=== PATIENT | female | born 1930 | race Caucasian/White ===

== ENCOUNTER 2016-03-31 12:27 | Observation (INO) | payer OTHER ==
[~2016-03-31] VITALS: Ht 157.5 cm; Wt 63.0 kg
[~2016-03-31 12:27] MED LIST: CLOP75 PO; DIAZ5TAB PO; DOCU1CAP39 PO; LEVO75TA3 PO; LYRI150C PO; MAPA325T6 PO; METF500 PO; METO10TA PO; MIRA33502 PO; NEXI40CA PO; POLYSOL14 EACH EYE; ST JTAB PO
[2016-03-31 12:29] VITALS: BP 191/81; PULSE 71; RESP 12; TEMP 98.5; O2SAT 99
--- NOTE | 2016-03-31 16:31 | PD ---
HPI Chief Complaint: Abdominal Pain Time Seen by Provider: 16:27 Travel History International Travel<30 days: No Contact w/Intl Traveler<30days: No Traveled to known affect area: No History of Present Illness HPI 86-year-old female presents to the emergency department for evaluation of abdominal pain. Patient states this has been ongoing for 1 week. She states she went to her primary care physician who referred her to the emergency department. Patient states that she has a history of this abdominal pain that comes and goes for several years. She currently sees Dr. Siegel. Patient has had multiple EGDs and colonoscopies. Patient reports history of hiatal hernia, spastic colon, fibromyalgia, rheumatoid arthritis, GERD Tunnel syndrome, hypothyroidism, diabetes, bronchitis, hemorrhoids. Patient denies any fevers or chills. No chest pain or shortness of breath. She denies any nausea or vomiting. No constipation or diarrhea. Patient reports she last had a bowel movement this morning which was normal for her. No blood in her stool. PFSH Past Medical History Hx Anticoagulant Therapy: Yes Arthritis: Yes (RHEUMATOID) Asthma: No Autoimmune Disease: No Blood Disorders: No Anxiety: Yes Depression: No Heart Rhythm Problems: No Cancer: No Cardiac Catheterization: Yes (2003 ) Cardiovascular Problems: Yes High Cholesterol: Yes Chemotherapy: No Chest Pain: Yes Congestive Heart Failure: No COPD: No Diabetes: Yes Diminished Hearing: No Endocrine: No Fibromyalgia: Yes Gastrointestinal Disorders: No GERD: Yes Glaucoma: No Headaches: No Hepatitis: No Hiatal Hernia: Yes Hypertension: No Immune Disorder: No Kidney Stones: No Musculoskeletal: Yes (FIBROMYALGIA; RHEUMATOID ARTHRITIS; CARPAL TUNNEL SYNDROME) Neurologic: No Reproductive: No Respiratory: Yes (BRONCHITIS) Myocardial Infarction: No Radiation Therapy: No Renal Failure: No Seizures: No Sleep Apnea: No Thyroid Disease: Yes Ulcer: No ?: Not : 7 Para: 7 Tubal Ligation: Yes (1962) Past Surgical History Abdominal Surgery: Yes (LAP YVETTE) AICD: No Cardiac Surgery: No Section: Yes (1962) Cholecystectomy: Yes Coronary Stent: Yes (2003 X 1) Ear Surgery: No Endocrine Surgery: No Eye Surgery: No Genitourinary Surgery: No Gynecologic Surgery: Yes Hysterectomy: Yes Neurologic Surgery: Yes (CERVICAL LAMI C4-C7 /FUSION) Oral Surgery: No Pacemaker: No Thoracic Surgery: No Other Surgery: Yes (SPINAL CORD STIMULATOR INSERTION/REMOVAL) Social History Alcohol Use: No Tobacco Use: No Substance Use: No Allergies-Medications (Allergen,Severity, Reaction): Coded Allergies: Cipro (Verified Allergy, Unknown, 03/31/16) Dilaudid (Verified Allergy, Unknown, 03/31/16) Flagyl (Verified Allergy, Unknown, 03/31/16) Levaquin (Verified Allergy, Unknown, 03/31/16) Reported Meds & Prescriptions Reported Meds & Active Scripts Active Reported Lyrica (Pregabalin) 150 Mg Cap 150 Mg PO BID Plavix (Clopidogrel Bisulfate) 75 Mg Tab 75 Mg PO DAILY Reglan (Metoclopramide HCl) 10 Mg Tab 10 Mg PO QID Colace (Docusate Sodium) 100 Mg Cap 100 Mg PO BID Aspir-81 (Aspirin) 81 Mg Tabdr Miralax (Polyethylene Glycol 3350) 1 Pow Pow Metformin (Metformin HCl) 500 Mg Tab 500 Mg PO BIDPC With meals Diazepam 5 Mg Tab 5 Mg PO BID PRN Nexium (Esomeprazole DR) 40 Mg Capdr 40 Mg PO DAILY Levoxyl (Levothyroxine Sodium) 75 Mcg Tab 75 Mcg PO DAILY Review of Systems Except as stated in HPI: all other systems reviewed are Neg Physical Exam Narrative GENERAL: Well-developed well-nourished elderly female patient, afebrile. SKIN: Warm and dry. HEAD: Normocephalic. Atraumatic. EYES: No scleral icterus. No injection or drainage. NECK: Supple, trachea midline. No JVD or lymphadenopathy. CARDIOVASCULAR: Regular rate and rhythm without murmurs, gallops, or rubs. RESPIRATORY: Breath sounds equal bilaterally. No accessory muscle use. Lungs sounds clear to auscultation. GASTROINTESTINAL: Abdomen soft, and nondistended. Patient has generalized tenderness to palpation. MUSCULOSKELETAL: No cyanosis, or edema. BACK: Nontender without obvious deformity. No CVA tenderness. Data Data Last Documented VS Vital Signs Date Time Temp Pulse Resp B/P Pulse Ox O2 Delivery O2 Flow Rate FiO2 03/31/16 12:29 98.5 71 12 191/81 99 Room Air Orders Complete Blood Count With Diff (03/31/16 16:26) Comprehensive Metabolic Panel (03/31/16 16:26) Lipase (03/31/16 16:26) Urinalysis - C+S If Indicated (03/31/16 16:26) Electrocardiogram (03/31/16 16:26) Urine Culture (03/31/16 17:05) Labs Laboratory Tests Test 03/31/16 03/31/16 16:37 17:05 White Blood Count 7.7 TH/MM3 Red Blood Count 4.78 MIL/MM3 Hemoglobin 13.8 GM/DL Hematocrit 39.5 % Mean Corpuscular Volume 82.5 FL Mean Corpuscular Hemoglobin 28.9 PG Mean Corpuscular Hemoglobin 35.1 % Concent Red Cell Distribution Width 14.6 % Platelet Count 338 TH/MM3 Mean Platelet Volume 8.0 FL Neutrophils (%) (Auto) 52.3 % Lymphocytes (%) (Auto) 35.9 % Monocytes (%) (Auto) 9.4 % Eosinophils (%) (Auto) 1.1 % Basophils (%) (Auto) 1.3 % Neutrophils # (Auto) 4.0 TH/MM3 Lymphocytes # (Auto) 2.8 TH/MM3 Monocytes # (Auto) 0.7 TH/MM3 Eosinophils # (Auto) 0.1 TH/MM3 Basophils # (Auto) 0.1 TH/MM3 CBC Comment DIFF FINAL Differential Comment Sodium Level 132 MEQ/L Potassium Level 3.3 MEQ/L Chloride Level 99 MEQ/L Carbon Dioxide Level 24.7 MEQ/L Anion Gap 8 MEQ/L Blood Urea Nitrogen 8 MG/DL Creatinine 0.84 MG/DL Estimat Glomerular Filtration 64 ML/MIN Rate Random Glucose 91 MG/DL Calcium Level 8.9 MG/DL Total Bilirubin 0.3 MG/DL Aspartate Amino Transf 15 U/L (AST/SGOT) Alanine Aminotransferase 14 U/L (ALT/SGPT) Alkaline Phosphatase 62 U/L Total Protein 7.9 GM/DL Albumin 3.9 GM/DL Lipase 91 U/L Urine Color YELLOW Urine Turbidity CLEAR Urine pH 8.5 Urine Specific [place] 1.020 Urine Protein 30 mg/dL Urine Glucose (UA) NEG mg/dL Urine Ketones 10 mg/dL Urine Occult Blood NEG Urine Nitrite NEG Urine Bilirubin NEG Urine Urobilinogen LESS THAN 2.0 MG/DL Urine Leukocyte Esterase MOD Urine RBC 7 /hpf Urine WBC 21 /hpf Urine WBC Clumps RARE Urine Squamous Epithelial 3 /hpf Cells Urine Bacteria FEW /hpf Urine Mucus FEW /lpf Microscopic Urinalysis Comment CULTURE INDICATED MDM Medical Decision Making Medical Screen Exam Complete: Yes Emergency Medical Condition: Yes Medical Record Reviewed: Yes Differential Diagnosis Chronic abdominal pain versus diverticulitis versus urinary tract infection versus pancreatitis versus bowel obstruction Narrative Course 86-year-old elderly female presents to the emergency department for evaluation of generalized abdominal pain for 1 week. Patient reports history of similar pain in the past. She has had multiple workups for this outpatient by her certified green building engineer, Dr. Siegel. CBC, CMP, lipase, EKG are ordered and pending. Workup is initiated in triage. Patient will be moved to medical pod for further evaluation and disposition. Pinky Sorensen Mar 31, 2016 16:31
[2016-03-31] MEDS ORDERED: METF500T PO (16:37)
[2016-03-31] MEDS ORDERED: LEVO75TA43 PO (16:37)
[2016-03-31] MEDS ORDERED: NEXI40CA PO (16:37)
[2016-03-31] MEDS ORDERED: DIAZ5TAB PO (16:37)
[2016-03-31] MEDS ORDERED: ASPI81TA81 (16:37)
[2016-03-31] MEDS ORDERED: MIRA3350 (16:37)
[2016-03-31] MEDS ORDERED: REGL10TA5 PO (16:39)
[2016-03-31] MEDS ORDERED: COLA100C3 PO (16:39)
[2016-03-31] MEDS ORDERED: LYRI150C PO (16:39)
[2016-03-31] MEDS ORDERED: PLAV75TA29 PO (16:39)
[2016-03-31 16:54] LABS: BASOPHIL # 0.1 TH/MM3 (0-0.2); BASOPHIL % 1.3 % (0.0-2.0); EOSINOPHIL # 0.1 TH/MM3 (0-0.4); EOSINOPHIL % 1.1 % (0.0-4.0); HEMATOCRIT 39.5 % (35.0-46.0); HEMO FLAGS DIFF FINAL; LYMPH % 35.9 % (9.0-44.0); LYMPHOCYTE # 2.8 TH/MM3 (1.0-4.8); MEAN CELL VOLUME 82.5 FL (80.0-100.0); MEAN CORPUSCULAR HEMOGLOBIN 28.9 PG (27.0-34.0); MEAN CORPUSCULAR HGB CONC 35.1 % (32.0-36.0); MONO % 9.4 % (0.0-8.0); NEUT % 52.3 % (16.0-70.0); PLATELET COUNT 338 TH/MM3 (150-450); RED BLOOD COUNT 4.78 MIL/MM3 (4.00-5.30); RED CELL DISTRIBUTION WIDTH 14.6 % (11.6-17.2); WHITE BLOOD COUNT 7.7 TH/MM3 (4.0-11.0)
[2016-03-31 17:08] LABS: ANION GAP 8 MEQ/L (5-15); AST (GOT) 15 U/L (15-37); BICARBONATE 24.7 MEQ/L (21.0-32.0); BLOOD UREA NITROGEN 8 MG/DL (7-18); CHLORIDE 99 MEQ/L (98-107); GLOMERULAR FILTRATION RATE 64 ML/MIN (>89); POTASSIUM 3.3 MEQ/L (3.5-5.1); SODIUM (NA) 132 MEQ/L (136-145)
[2016-03-31 17:11] LABS: ALKALINE PHOSPHATASE 62 U/L (45-117); ALT (GPT) 14 U/L (10-53); TOTAL BILIRUBIN ADULT 0.3 MG/DL (0.2-1.0)
[2016-03-31 17:35] LABS: BACTERIA, URINE FEW /hpf; BLOOD, URINE NEG (NEG); GLUCOSE,URINE NEG (NEG); KETONE, URINE 10 mg/dL (NEG); MUCUS URINE FEW /lpf (OCC); NITRITE,URINE NEG (NEG); PH, URINE 8.5 (5.0-8.5); SQUAMOUS EPITHELIAL CELL URINE 3 /hpf (0-5); URINE COLOR YELLOW (YELLW/STRAW)
[2016-03-31 17:38] LABS: COMMENT (UR) CULTURE INDICATED; CULTURE IF INDICATED CULTURE INDICATED
[2016-03-31] MEDS ORDERED: PANTOPRAZOLE SODIUM 40 MG VIAL IV PUSH ONE (18:00)
[2016-03-31] MEDS ORDERED: MORPHINE SULFATE 4 MG/ML INJ IV PUSH ONE ×2 (18:00→20:00)
[2016-03-31] MEDS ORDERED: ONDANSETRON HCL 4 MG/2 ML VIAL IV PUSH ONE (18:00)
[2016-03-31] MEDS ORDERED: SODIUM CHLORID 0.9% 500 ML INJ 500 ML IV ONE (18:00)
--- NOTE | 2016-03-31 19:02 | PD ---
Physical Exam Narrative Patient originally seen in triage by [facility] where workup was started. Patient is a 86-year-old female comes in complaining of diffuse abdominal pain. She has had issues with abdominal pain in the past, she has had several EGDs and colonoscopies as well as CT scans and other gastroenterologic testing. Her pain started again today, and she reports it as severe. She has not had any vomiting, but she has not been eating very much due to lack of appetite. She reports having a small bowel movement earlier today. She has not had any fever or chills. She localizes the pain to her lower abdomen. Data Data Last Documented VS Vital Signs Date Time Temp Pulse Resp B/P Pulse Ox O2 Delivery O2 Flow Rate FiO2 03/31/16 12:29 98.5 71 12 191/81 99 Room Air Orders Complete Blood Count With Diff (03/31/16 16:26) Comprehensive Metabolic Panel (03/31/16 16:26) Lipase (03/31/16 16:26) Urinalysis - C+S If Indicated (03/31/16 16:26) Electrocardiogram (03/31/16 16:26) Urine Culture (03/31/16 17:05) Morphine Inj (Morphine Inj) (03/31/16 18:00) Ondansetron Inj (Zofran Inj) (03/31/16 18:00) Pantoprazole Inj (Protonix Inj) (03/31/16 18:00) Ct Abd/Pel W Iv Contrast(Rout) (03/31/16 ) Sodium Chlorid 0.9% 500 Ml Inj (Ns 500 M (03/31/16 18:00) Labs Laboratory Tests Test 03/31/16 03/31/16 16:37 17:05 White Blood Count 7.7 TH/MM3 Red Blood Count 4.78 MIL/MM3 Hemoglobin 13.8 GM/DL Hematocrit 39.5 % Mean Corpuscular Volume 82.5 FL Mean Corpuscular Hemoglobin 28.9 PG Mean Corpuscular Hemoglobin 35.1 % Concent Red Cell Distribution Width 14.6 % Platelet Count 338 TH/MM3 Mean Platelet Volume 8.0 FL Neutrophils (%) (Auto) 52.3 % Lymphocytes (%) (Auto) 35.9 % Monocytes (%) (Auto) 9.4 % Eosinophils (%) (Auto) 1.1 % Basophils (%) (Auto) 1.3 % Neutrophils # (Auto) 4.0 TH/MM3 Lymphocytes # (Auto) 2.8 TH/MM3 Monocytes # (Auto) 0.7 TH/MM3 Eosinophils # (Auto) 0.1 TH/MM3 Basophils # (Auto) 0.1 TH/MM3 CBC Comment DIFF FINAL Differential Comment Sodium Level 132 MEQ/L Potassium Level 3.3 MEQ/L Chloride Level 99 MEQ/L Carbon Dioxide Level 24.7 MEQ/L Anion Gap 8 MEQ/L Blood Urea Nitrogen 8 MG/DL Creatinine 0.84 MG/DL Estimat Glomerular Filtration 64 ML/MIN Rate Random Glucose 91 MG/DL Calcium Level 8.9 MG/DL Total Bilirubin 0.3 MG/DL Aspartate Amino Transf 15 U/L (AST/SGOT) Alanine Aminotransferase 14 U/L (ALT/SGPT) Alkaline Phosphatase 62 U/L Total Protein 7.9 GM/DL Albumin 3.9 GM/DL Lipase 91 U/L Urine Color YELLOW Urine Turbidity CLEAR Urine pH 8.5 Urine Specific [place] 1.020 Urine Protein 30 mg/dL Urine Glucose (UA) NEG mg/dL Urine Ketones 10 mg/dL Urine Occult Blood NEG Urine Nitrite NEG Urine Bilirubin NEG Urine Urobilinogen LESS THAN 2.0 MG/DL Urine Leukocyte Esterase MOD Urine RBC 7 /hpf Urine WBC 21 /hpf Urine WBC Clumps RARE Urine Squamous Epithelial 3 /hpf Cells Urine Bacteria FEW /hpf Urine Mucus FEW /lpf Microscopic Urinalysis Comment CULTURE INDICATED MDM Supervised Visit with ANGELIKA: Yes Narrative Course Patient is an 86-year-old female comes in complaining of severe abdominal pain. Exam shows diffuse tenderness to palpation, slight distention of her abdomen. IV established, labs sent. Urinalysis is positive for infection. Given a dose of Rocephin. Given IV fluids, Zofran, morphine, Protonix. CT of the abdomen and pelvis ordered to evaluate for further pathology. Patient signed out to Dr. Delacruz to follow-up CAT scan and disposition appropriately. Condition: Stable Alanis Trivedi MD Mar 31, 2016 19:02
[2016-03-31] MEDS ORDERED: IOHEXOL 350 MG/ML 10 ML VIAL (for RAD DIAG) IV ONE (19:20)
[2016-03-31] MEDS ORDERED: cefTRIAXone INJ 1,000 MG in SODIUM CHLORIDE 0.9% INJ 100 ML IV ONE (19:30)
--- NOTE | 2016-03-31 19:44 | RADRPT ---
EXAM DATE/TIME: 03/31/2016 18:40 [place] COMPARISON: No previous studies available for comparison. INDICATIONS : Abdomen pain for one week. IV CONTRAST: 75 cc Omnipaque 350 (iohexol) IV ORAL CONTRAST: No oral contrast ingested. RADIATION DOSE: 9.96 CTDIvol (mGy) MEDICAL HISTORY : Cardiovascular disease. Cerebrovascular disease. Hernia, hiatal.diabetes,spastic bowel SURGICAL HISTORY : Cholecystectomy. Hysterectomy. ENCOUNTER: Initial ACUITY: 1 week PAIN SCALE: 10/10 LOCATION: Abdomen TECHNIQUE: Volumetric scanning of the abdomen and pelvis was performed. Using automated exposure control and ad justment of the mA and/or kV according to patient size, radiation dose was kept as low as reasonably achievable to obtain optimal diagnostic quality images. FINDINGS: There is dependent atelectasis in the lungs. Mild fatty liver. No acute findings in the spleen, adren als, kidneys. Mild pancreatic ductal dilatation. Common bile duct is also dilated to about 14 mm, sta tus post cholecystectomy. There is colonic diverticulosis, especially sigmoid without diverticulitis. Sclerotic changes at the femoral heads suggest prior avascular necrosis. Vascular stent present in the proximal celiac artery. No aneurysm. CONCLUSION: 1. No acute findings. Colonic diverticulosis. 2. Cholecystectomy with biliary ductal dilatation to 14 mm. 3. There is a celiac artery stent. Da Florence MD on March 31, 2016 at 19:38 Board Certified Radiologist. This report was verified electronically.
[2016-03-31 21:28] VITALS: BP 171/80; PULSE 67; RESP 18; O2SAT 98
--- NOTE | 2016-03-31 22:30 | PD ---
Data Data Last Documented VS Vital Signs Date Time Temp Pulse Resp B/P Pulse Ox O2 Delivery O2 Flow Rate FiO2 03/31/16 12:29 98.5 71 12 191/81 99 Room Air Orders Complete Blood Count With Diff (03/31/16 16:26) Comprehensive Metabolic Panel (03/31/16 16:26) Lipase (03/31/16 16:26) Urinalysis - C+S If Indicated (03/31/16 16:26) Electrocardiogram (03/31/16 16:26) Urine Culture (03/31/16 17:05) Morphine Inj (Morphine Inj) (03/31/16 18:00) Ondansetron Inj (Zofran Inj) (03/31/16 18:00) Pantoprazole Inj (Protonix Inj) (03/31/16 18:00) Ct Abd/Pel W Iv Contrast(Rout) (03/31/16 ) Sodium Chlorid 0.9% 500 Ml Inj (Ns 500 M (03/31/16 18:00) Ceftriaxone Inj (Rocephin Inj) (03/31/16 19:30) Iohexol 350 Inj (Omnipaque 350 Inj) (03/31/16 19:20) Morphine Inj (Morphine Inj) (03/31/16 20:00) Lactic Acid (03/31/16 20:08) Admit Order (Ed Use Only) (03/31/16 20:40) Labs Laboratory Tests Test 03/31/16 03/31/16 16:37 17:05 White Blood Count 7.7 TH/MM3 Red Blood Count 4.78 MIL/MM3 Hemoglobin 13.8 GM/DL Hematocrit 39.5 % Mean Corpuscular Volume 82.5 FL Mean Corpuscular Hemoglobin 28.9 PG Mean Corpuscular Hemoglobin 35.1 % Concent Red Cell Distribution Width 14.6 % Platelet Count 338 TH/MM3 Mean Platelet Volume 8.0 FL Neutrophils (%) (Auto) 52.3 % Lymphocytes (%) (Auto) 35.9 % Monocytes (%) (Auto) 9.4 % Eosinophils (%) (Auto) 1.1 % Basophils (%) (Auto) 1.3 % Neutrophils # (Auto) 4.0 TH/MM3 Lymphocytes # (Auto) 2.8 TH/MM3 Monocytes # (Auto) 0.7 TH/MM3 Eosinophils # (Auto) 0.1 TH/MM3 Basophils # (Auto) 0.1 TH/MM3 CBC Comment DIFF FINAL Differential Comment Sodium Level 132 MEQ/L Potassium Level 3.3 MEQ/L Chloride Level 99 MEQ/L Carbon Dioxide Level 24.7 MEQ/L Anion Gap 8 MEQ/L Blood Urea Nitrogen 8 MG/DL Creatinine 0.84 MG/DL Estimat Glomerular Filtration 64 ML/MIN Rate Random Glucose 91 MG/DL Calcium Level 8.9 MG/DL Total Bilirubin 0.3 MG/DL Aspartate Amino Transf 15 U/L (AST/SGOT) Alanine Aminotransferase 14 U/L (ALT/SGPT) Alkaline Phosphatase 62 U/L Total Protein 7.9 GM/DL Albumin 3.9 GM/DL Lipase 91 U/L Urine Color YELLOW Urine Turbidity CLEAR Urine pH 8.5 Urine Specific [place] 1.020 Urine Protein 30 mg/dL Urine Glucose (UA) NEG mg/dL Urine Ketones 10 mg/dL Urine Occult Blood NEG Urine Nitrite NEG Urine Bilirubin NEG Urine Urobilinogen LESS THAN 2.0 MG/DL Urine Leukocyte Esterase MOD Urine RBC 7 /hpf Urine WBC 21 /hpf Urine WBC Clumps RARE Urine Squamous Epithelial 3 /hpf Cells Urine Bacteria FEW /hpf Urine Mucus FEW /lpf Microscopic Urinalysis Comment CULTURE INDICATED MDM Supervised Visit with ANGELIKA: No Narrative Course This is an 86-year-old female who has a history of cyclic chronic epigastric abdominal pain who presents to the emergency department with worsening symptoms over the past week. She was signed out to me by Dr. Trivedi. She had a CT abdomen and pelvis which was reassuring. She does have a urinary tract infection. I did add a lactic acid in the setting of the patient's history of celiac artery stent, although it seems in the past this has not been thought to be the cause of this patient's pain. Patient will be placed in observation for pain control and antibiotic therapy. Diagnosis Primary Impression: Urinary tract infection Qualified Code: N30.01 - Acute cystitis with hematuria Admitting Information Admitting Physician Requests: Observation Condition: Stable Juhi Delacruz MD Mar 31, 2016 22:30
[2016-03-31 23:41] VITALS: BP 161/78; PULSE 78; RESP 18; O2SAT 100
--- NOTE | 2016-03-31 23:56 | HHI.HP ---
[facility] Non-Staff Admission Diagnosis urinary tract infection, abdominal pain Diagnoses: Chief Complaint: Abdominal pain Travel History International Travel<30 Days: No Contact w/Intl Traveler <30 Da: No Traveled to Known Affected Are: No History of Present Illness This is an 86-year-old female with past medical history significant for cyclic chronic abdominal pain as well as mesenteric artery stent, diabetes mellitus, as stated above below presents complaining of abdominal pain localized in the gastric region, nonradiating. The patient has some difficulty communicating, however as per ED physician records and verbal signout to me, the patient has had extensive GI workup including multiple EGDs and colonoscopies which has been nondiagnostic of any abnormality. Patient also had a mesenteric artery stent for suspected bowel ischemia, after which the patient continued to have symptoms and underwent a cholecystectomy. Apparently the patient had been asymptomatic for a few months and just started complaining of abdominal pain. Patient denies nausea vomiting, diarrhea, constipation. Denies melena or bright blood per rectum. Conductive records the patient has been evaluated by either muscular surgery, Dr. rachel and 12/09/15 for the possibility of mesenteric ischemia, however this was ruled out. Patient also denies fevers or chills, cough, chest pain and shortness of breath. Review of Systems Other For history of present illness, other systems reviewed by me and negative. Past Family Social History Past Medical History Anxiety Hypothyroidism GERD/IBS Rheumatoid arthritis Fibromyalgia Chronic dysarthria, denies CVA Hyperlipidemia Diabetes mellitus Peripheral neuropathy Past Surgical History Cholecystectomy PCI C4-7 fusion Spinal stimulator placement and removal Hysterectomy Celiac stent placement, by radiology Cataract surgery Allergies: Coded Allergies: Cipro (Verified Allergy, Unknown, 03/31/16) Dilaudid (Verified Allergy, Unknown, 03/31/16) Flagyl (Verified Allergy, Unknown, 03/31/16) Levaquin (Verified Allergy, Unknown, 03/31/16) Active Ordered Medications Current Medications Medications (Trade) Dose Ordered Sig/Christian Route Start Time Stop Time Status Last Admin (NS 1000 ml Inj) 1,000 ml @ 100 mls/hr Q10H IV 03/31/16 23:56 (NS Flush) 2 ml UNSCH PRN FLUSH 04/01/16 00:00 (NS Flush) 2 ml BID FLUSH 04/01/16 09:00 (Tylenol) 650 mg Q4H PRN PO 04/01/16 00:00 (Zofran Inj) 4 mg Q6H PRN IVP 04/01/16 00:00 04/01/16 00:21 (Heparin Inj) 5,000 units Q8HR SQ 04/01/16 06:00 (Morphine Inj) 2 mg Q3H PRN IV PUSH 04/01/16 00:00 (Morphine Inj) 4 mg Q3H PRN IV PUSH 04/01/16 00:00 04/01/16 03:13 Family History Patient's son had prostate cancer and patient's brother 2 weeks ago from complications of diabetes and heart disease. Social History Patient denies smoking. Denies drinking alcohol. Physical Exam Vital Signs Vital Signs Date Time Temp Pulse Resp B/P Pulse Ox O2 Delivery O2 Flow Rate FiO2 03/31/16 23:41 78 18 161/78 100 Room Air 03/31/16 21:28 67 18 171/80 98 Room Air 03/31/16 12:29 98.5 71 12 191/81 99 Room Air Physical Exam GENERAL: This is a well-nourished, well-developed patient, in no apparent distress. SKIN: No rashes, ecchymoses or lesions. Cool and dry. HEAD: Atraumatic. Normocephalic. No temporal or scalp tenderness. EYES: Pupils equal round and reactive. Extraocular motions intact. No scleral icterus. No injection or drainage. ENT: Nose without bleeding, purulent drainage or septal hematoma. Throat without erythema, tonsillar hypertrophy or exudate. Uvula midline. Airway patent. NECK: Trachea midline. No JVD or lymphadenopathy. Supple, nontender, no meningeal signs. CARDIOVASCULAR: Regular rate and rhythm without murmurs, gallops, or rubs. RESPIRATORY: Clear to auscultation. Breath sounds equal bilaterally. No wheezes , rales, or rhonchi. GASTROINTESTINAL: Abdomen soft, non-tender, mildly distended. No hepato- splenomegaly, or palpable masses. No guarding. MUSCULOSKELETAL: Extremities without clubbing, cyanosis, or edema. No joint tenderness, effusion, or edema noted. No calf tenderness. Negative Homans sign bilaterally. NEUROLOGICAL: Awake and alert. Cranial nerves II through XII intact. Motor and sensory grossly within normal limits. Five out of 5 muscle strength in all muscle groups. Normal speech. Laboratory Laboratory Tests Test 03/31/16 03/31/16 03/31/16 16:37 17:05 22:18 White Blood Count 7.7 Red Blood Count 4.78 Hemoglobin 13.8 Hematocrit 39.5 Mean Corpuscular Volume 82.5 Mean Corpuscular Hemoglobin 28.9 Mean Corpuscular Hemoglobin 35.1 Concent Red Cell Distribution Width 14.6 Platelet Count 338 Mean Platelet Volume 8.0 Neutrophils (%) (Auto) 52.3 Lymphocytes (%) (Auto) 35.9 Monocytes (%) (Auto) 9.4 Eosinophils (%) (Auto) 1.1 Basophils (%) (Auto) 1.3 Neutrophils # (Auto) 4.0 Lymphocytes # (Auto) 2.8 Monocytes # (Auto) 0.7 Eosinophils # (Auto) 0.1 Basophils # (Auto) 0.1 CBC Comment DIFF FINAL Differential Comment Sodium Level 132 Potassium Level 3.3 Chloride Level 99 Carbon Dioxide Level 24.7 Anion Gap 8 Blood Urea Nitrogen 8 Creatinine 0.84 Estimat Glomerular Filtration 64 Rate Random Glucose 91 Calcium Level 8.9 Total Bilirubin 0.3 Aspartate Amino Transf 15 (AST/SGOT) Alanine Aminotransferase 14 (ALT/SGPT) Alkaline Phosphatase 62 Total Protein 7.9 Albumin 3.9 Lipase 91 Urine Color YELLOW Urine Turbidity CLEAR Urine pH 8.5 Urine Specific [place] 1.020 Urine Protein 30 Urine Glucose (UA) NEG Urine Ketones 10 Urine Occult Blood NEG Urine Nitrite NEG Urine Bilirubin NEG Urine Urobilinogen LESS THAN 2.0 Urine Leukocyte Esterase MOD Urine RBC 7 Urine WBC 21 Urine WBC Clumps RARE Urine Squamous Epithelial 3 Cells Urine Bacteria FEW Urine Mucus FEW Microscopic Urinalysis Comment CULTURE INDICATED Lactic Acid Level 1.1 Date/Time Procedure Status Source Growth 03/31/16 17:05 Urine Culture Received Urine Random Urine Pending Result Diagram: 03/31/16 1637 03/31/16 1637 Imaging Last Impressions Abdomen/Pelvis CT 03/31/16 0000 Signed Impressions: Service Date/Time: Thursday, March 31, 2016 18:40 - CONCLUSION: 1. No acute findings. Colonic diverticulosis. 2. Cholecystectomy with biliary ductal dilatation to 14 mm. 3. There is a celiac artery stent. Da Florence MD Reviewed by me. Assessment and Plan Problem List: (1) Abdominal pain ICD Code: R10.9 Status: Chronic Plan: This is an 86-year-old female with history of cyclic chronic abdominal pain, diabetes, arthritis, dysarthria, back pain who presents to [facility]. complaining of abdominal pain, not associated with nausea and vomiting. Abdominal pain has been extensively worked up in the past by gastroenterology. The patient has had multiple EGDs and colonoscopies which have been nondiagnostic. Patient also had a mesenteric artery stent placed after which the patient still had abdominal pain and cholecystectomy. At this point it is unclear the etiology of the abdominal pain, differential diagnosis would include diabetic gastroparesis, peptic ulcer disease, gastritis, less likely constipation since the patient states that she has had bowel movements and CT of the abdomen and pelvis is nondiagnostic as well. With the patient in observation to monitor serial abdominal exams I will provide pain control with IV morphine Lactic acid 1.1, synthetic ischemia ruled out. Consultation gastroenterology Will order a gastric emptying study. (2) Urinary tract infection ICD Code: N39.0 Status: Acute Plan: UA positive, patient was given IV Rocephin in the emergency department. I will continue Rocephin. Follow up cultures and adjust antibiotics accordingly. Abdominal pain could be also secondary to urinary tract infection. (3) Diabetes ICD Code: E11.9 Status: Acute Plan: Patient on metformin at home. On metformin with the patient was hospitalized. Blood sugar seems to be very stable. We'll continue to monitor daily. If these are observed that are going up then will order set with insulin NovoLog and monitor Accu-Cheks before meals and at bedtime. Check hemoglobin A1c. (4) Hypokalemia ICD Code: E87.6 Status: Acute Plan: Likely secondary to decreased oral intake due to abdominal pain. Continue to monitor and replace as needed. I will give oral potassium today. (5) Hyponatremia ICD Code: E87.1 Status: Acute Plan: Likely hypovolemic hyponatremia, will place on IV normal saline and monitor BMP. (6) Hypothyroidism ICD Code: E03.9 Status: Acute Plan: Continue levothyroxine. Check TSH Assessment and Plan Prophylaxis: PPI DVT prophylaxis: Heparin subcutaneous. Problem Qualifiers (1) Urinary tract infection: Qualified Code: N30.01 - Acute cystitis with hematuria (2) Diabetes: Manish Key MD Mar 31, 2016 23:56
[2016-04-01] MEDS ORDERED: POTASSIUM CHLORIDE 10 MEQ CONTROLLED RELEASE TAB PO ONE
[2016-04-01] MEDS ORDERED: SODIUM CHLORIDE 0.9% FLUSH 5 ML FLUSH FLUSH PRN
[2016-04-01] MEDS ORDERED: MORPHINE SULFATE 4 MG/ML INJ IV PUSH PRN
[2016-04-01] MEDS ORDERED: ACETAMINOPHEN 325 MG TAB PO PRN
[2016-04-01] MEDS: MORPHINE SULFATE 4 MG/ML INJ IV PUSH PRN ×3 (00:21→06:13)
[2016-04-01] MEDS: ONDANSETRON HCL 4 MG/2 ML VIAL IVP PRN ×2 (00:21→06:13)
[2016-04-01] MEDS: SODIUM CHLOR 0.9% 1000 ML INJ 1,000 ML IV SCH ×3 (04:26→21:42)
--- NOTE | 2016-04-01 05:01 | EKG ---
Date Performed: 03/31/2016 Time Performed: 18:20:29 PTAGE: 86 years EKG: BASELINE ARTIFACT PRESENT. Sinus rhythm NORMAL ECG NO SIGNIFICANT CHANGE FROM PRIOR ELECTROCARDIOGRAM. PREVIOUS TRACING : 12/08/2015 14.40 DOCTOR: Luis Bains Interpretating Date/Time 04/01/2016 04:58:59
[2016-04-01 05:56] LABS: AUTOMATED NEUTROPHIL # 3.7 TH/MM3 (1.8-7.7); BASOPHIL % 0.7 % (0.0-2.0); EOSINOPHIL # 0.1 TH/MM3 (0-0.4); EOSINOPHIL % 1.5 % (0.0-4.0); HEMATOCRIT 37.6 % (35.0-46.0); HEMO FLAGS DIFF FINAL; LYMPH % 33.4 % (9.0-44.0); LYMPHOCYTE # 2.3 TH/MM3 (1.0-4.8); MEAN CELL VOLUME 82.9 FL (80.0-100.0); MEAN CORPUSCULAR HEMOGLOBIN 28.3 PG (27.0-34.0); MEAN CORPUSCULAR HGB CONC 34.2 % (32.0-36.0); MONO % 10.6 % (0.0-8.0); NEUT % 53.8 % (16.0-70.0); PLATELET COUNT 317 TH/MM3 (150-450); RED BLOOD COUNT 4.53 MIL/MM3 (4.00-5.30); RED CELL DISTRIBUTION WIDTH 14.7 % (11.6-17.2); WHITE BLOOD COUNT 6.8 TH/MM3 (4.0-11.0)
[2016-04-01 06:11] VITALS: BP 139/63; PULSE 65; RESP 18; O2SAT 100
[2016-04-01] MEDS: HEPARIN SODIUM - SQ 10,000 UNITS/ML VIAL SQ SCH ×3 (06:12→21:41)
[2016-04-01 06:32] LABS: ANION GAP 10 MEQ/L (5-15); AST (GOT) 10 U/L (15-37); BICARBONATE 23.6 MEQ/L (21.0-32.0); BLOOD UREA NITROGEN 9 MG/DL (7-18); CHLORIDE 104 MEQ/L (98-107); GLOMERULAR FILTRATION RATE 63 ML/MIN (>89); POTASSIUM 3.7 MEQ/L (3.5-5.1); SODIUM (NA) 138 MEQ/L (136-145)
[2016-04-01 06:34] LABS: ALKALINE PHOSPHATASE 56 U/L (45-117); ALT (GPT) 13 U/L (10-53); TOTAL BILIRUBIN ADULT 0.3 MG/DL (0.2-1.0)
[2016-04-01] MEDS: SODIUM CHLORIDE 0.9% FLUSH 5 ML FLUSH FLUSH SCH ×2 (09:00→21:42)
[2016-04-01 09:29] VITALS: BP 153/68; PULSE 64; RESP 18; O2SAT 100
[2016-04-01] MEDS ORDERED: METOCLOPRAMIDE HCL 10 MG/2 ML VIAL ONE (11:34)
[2016-04-01 12:28] VITALS: BP 164/76; PULSE 75; RESP 18; O2SAT 96
--- NOTE | 2016-04-01 13:04 | RADRPT ---
EXAM DATE/TIME: 04/01/2016 10:04 [place] COMPARISON: No previous studies available for comparison. INDICATIONS : Abdominal pain for 1 day. DOSE: 1.1 mCi Tc99m Sulfur Colloid Labeled Whole egg PO MEDICATONS: 1.) 5 mg Reglan IV at 90 minutes IMAGIN hrs MEDICAL HISTORY : Diabetes mellitus type 2. Myocardial infarction. SURGICAL HISTORY : Coronary artery stent. Cholecystectomy. Hysterectomy. Mesenteric artery stent. ENCOUNTER: Initial ACUITY: 1 day PAIN SCALE: 3/10 LOCATION: Bilateral Abdomen. TECHNIQUE: Following the oral ingestion of radiotracer-labeled meal, dynamic sequential images in the TAJIK projec tion were acquired with simultaneous computer acquisition. The data set was decay-corrected. FINDINGS: LAG PHASE: There is 30 minutes before onset of gastric emptying. EMPTYING: Gastric emptying kinetics are linear. The decay-corrected, back-extrapolated half-time of emptying i s greater than 120 minutes. (Normal for this lab is 45- 90 minutes.) INTERVENTION: IV Reglan at 90 minutes with no change in emptying kinetics CONCLUSION: Severe gastroparesis. Jay Mckeon MD on April 01, 2016 at 13:01 Board Certified Radiologist. This report was verified electronically.
--- NOTE | 2016-04-01 14:36 | HHI.PR ---
Subjective Remarks Follow-up for abdominal pain. 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 Daughter at bedside. The patient has been nothing by mouth while she's been here and her symptoms have improved some. She still has some burning epigastric discomfort. She denies any nausea, vomiting, diarrhea, fever , chills. Objective Vitals Vital Signs Date Time Temp Pulse Resp B/P Pulse Ox O2 Delivery O2 Flow Rate FiO2 04/01/16 12:28 75 18 164/76 96 Room Air 04/01/16 09:29 64 18 153/68 100 Room Air 04/01/16 06:11 65 18 139/63 100 Room Air 03/31/16 23:41 78 18 161/78 100 Room Air 03/31/16 21:28 67 18 171/80 98 Room Air Result Diagram: 04/01/16 0530 04/01/16 0530 Imaging Last Impressions Gastric Emptying Nuclear Medicine 04/01/16 0000 Signed Impressions: Service Date/Time: March 10:04 - CONCLUSION: Severe gastroparesis. Jay Mckeon MD Abdomen/Pelvis CT 03/31/16 0000 Signed Impressions: Service Date/Time: Thursday, March 31, 2016 18:40 - CONCLUSION: 1. No acute findings. Colonic diverticulosis. 2. Cholecystectomy with biliary ductal dilatation to 14 mm. 3. There is a celiac artery stent. Da Florence MD Objective Remarks GENERAL: Well-developed well-nourished. In no acute distress. SKIN: Warm and dry. No lesions noted. HEENT: Normocephalic. Pupils equal and round. Mucous membranes pink and moist. CARDIOVASCULAR: Regular rate and rhythm. No murmur appreciated. RESPIRATORY: No accessory muscle use. Clear to auscultation. Breath sounds equal bilaterally. GASTROINTESTINAL: Abdomen soft, mild epigastric TTP, nondistended. Bowel sounds x4. MUSCULOSKELETAL: No obvious deformities. No clubbing or cyanosis. No edema. NEUROLOGICAL: Awake and alert. Expressive aphasia. Moves upper and lower extremities spontaneously. PSYCHIATRIC: Appropriate mood and affect; insight and judgment normal. A/P Problem List: (1) Abdominal pain ICD Code: R10.9 Status: Acute (2) Urinary tract infection ICD Code: N39.0 Status: Acute (3) Diabetes ICD Code: E11.9 Status: Chronic (4) Hypokalemia ICD Code: E87.6 Status: Resolved (5) Hyponatremia ICD Code: E87.1 Status: Resolved (6) Hypothyroidism ICD Code: E03.9 Status: Chronic Assessment and Plan This is an 86-year-old female with history of cyclic chronic abdominal pain, diabetes, arthritis, dysarthria, back pain who presented with abdominal pain Abdominal pain, nausea, vomiting: Upon reviewing records, it appears this is been extensively worked up in the past by gastroenterology. The patient has had multiple EGDs and colonoscopies which have been nondiagnostic. Patient also had a mesenteric artery stent placed after which the patient still had abdominal pain and cholecystectomy. Imaging/labs review: CT abdomen and pelvis showed no acute findings. Gastric emptying study was performed which showed severe gastroparesis with no response to Reglan. Lactic acid 1.1, mesenteric ischemia ruled out. -Consult gastroenterology, appreciate specialists input -Patient and daughter educated on eating small frequent meals -Avoid narcotics or medications that might decrease motility -IVF and antiemetics as needed UTI: UA with evidence of UTI. Could contribute to symptoms as above. Give empiric IV Rocephin and follow-up urine culture. Diabetes mellitus: Seems controlled. Continue home metformin. Hyponatremia/hypokalemia: Mild. Given oral potassium replacement. Given IVF bolus. Electrolytes within normal limits today. Resolved. Other chronic medical conditions include neuropathy, CVA, GERD, hypothyroidism: Stable at this time and will continue home medications as indicated DVT prophylaxis: Heparin. SCDs. Written by Sinan Johnson, acting as scribe for Dr. Castillo on 04/01/16 at 14:36. The documentation accurately reflects the work performed [id number] by ma Dr. Castillo on 04/01/16 at 14:36. Discharge Planning Follow-up GI recommendations. Problem Qualifiers (1) Abdominal pain: Qualified Code: R10.13 - Epigastric pain (2) Urinary tract infection: Qualified Code: N30.01 - Acute cystitis with hematuria (3) Diabetes: Qualified Code: E11.43 - Type 2 diabetes mellitus with diabetic autonomic neuropathy, without long-term current use of insulin (4) Hypothyroidism: Qualified Code: E03.9 - Hypothyroidism, unspecified type Sinan Johnson Apr 01, 2016 14:36 Agustina Castillo MD Apr 01, 2016 16:40
[2016-04-01] MEDS ORDERED: DIAZEPAM 5 MG TAB PO PRN (15:00)
[2016-04-01 15:20] VITALS: BP 163/76; PULSE 74; RESP 18; O2SAT 97
[2016-04-01 15:57] VITALS: BP 171/71; PULSE 72; RESP 18; TEMP 99.4; O2SAT 92
--- NOTE | 2016-04-01 17:15 | PD.CONS ---
HPI History of Present Illness This is a 86 year old with a hx of gastroparesis, gastritis, Schatzki's ring, and constipation who came to the emergency room for evaluation of abdominal pain. She reports that she is been having a constant burning pain throughout her upper abdomen for quite some time, but that it has worsened over the past week. It seems to be aggravated by po intake, although she cannot identify a particular type of food that seems to aggravate her pain. She is not having any nausea or vomiting at this time. She reports that at one point she was on Nexium and Reglan and that this helped some, but she no longer takes the Nexium. She also has had Botox injections in the past and reports that this did help for a while but her symptoms gradually came back. She reports that she is moving her bowels although sometimes she has to take a stool softener. She has not seen any blood or mucus in her stool. She last had EGD with dilatation and Botox injections (11/13/14) gastritis in the antrum, Schatzki's ring, bile in stomach, retroflex views revealed a hiatal hernia. Pathology with histopathologic features consistent with chemical gastropathy as may be seen with bile reflux, nonsteroidal anti-inflammatory drugs or other drug- induced disease, negative for intestinal metaplasia and dysplasia, Belia stain negative for Helicobacter. She had a Colonoscopy (04/20/12) moderate diverticulosis in the sigmoid colon, diminutive polyp at the hepatic flexure, moderate diverticulosis in the sigmoid colon diminutive polyp in the rectum, normal colon otherwise, medium internal hemorrhoids, perianal skin tags, prolapsed hemorrhoids. Right colon biopsy with benign colonic mucosa with minimal melanosis coli, hepatic flexure biopsy with tubular adenoma, left colon biopsy with benign colonic mucosa with mild melanosis coli, rectum with hyperplastic polyp. (Mariama Gaxiola) PFSH Past Medical History Anxiety Hypothyroidism GERD/IBS Rheumatoid arthritis Fibromyalgia Chronic dysarthria, denies CVA Hyperlipidemia Diabetes mellitus Peripheral neuropathy COPD Dysphagia Gastroparesis Esophageal stricture Carpal tunnel syndrome Hiatal hernia PUD Hx ischemic colitis Hx PUD Depression Past Surgical History Cholecystectomy PCI C4-7 fusion Spinal stimulator placement and removal Hysterectomy Celiac stent placement, by radiology Cataract surgery Appendectomy EGD with botox injections Colonoscopy Exploratory laparotomy Umbilical Hernia repair (Mariama Gaxiola) Coded Allergies: Cipro (Verified Allergy, Unknown, 2/8/17) Dilaudid (Verified Allergy, Unknown, 03/31/16) Flagyl (Verified Allergy, Unknown, 03/31/16) Levaquin (Verified Allergy, Unknown, 03/31/16) Medications Allergies Coded Allergies Type Severity Reaction Last Updated Verified Cipro Allergy Unknown 03/31/16 Yes Dilaudid Allergy Unknown 03/31/16 Yes Flagyl Allergy Unknown 03/31/16 Yes Levaquin Allergy Unknown 03/31/16 Yes Active Scripts Medications Dose Route/Sig Days Date Category Dose Instructions Lyrica (Pregabalin) 150 Mg Cap 150 Mg PO BID 03/31/16 Reported Plavix (Clopidogrel Bisulfate) 75 Mg Tab 75 Mg PO DAILY 03/31/16 Reported Reglan (Metoclopramide HCl) 10 Mg Tab 10 Mg PO QID 03/31/16 Reported Colace (Docusate Sodium) 100 Mg Cap 100 Mg PO BID 03/31/16 Reported Aspir-81 (Aspirin) 81 Mg Tabdr 03/31/16 Reported Miralax (Polyethylene Glycol 3350) 1 Pow Pow 03/31/16 Reported Metformin (Metformin HCl) 500 Mg Tab 500 Mg PO BIDPC 03/31/16 Reported With meals Diazepam 5 Mg Tab 5 Mg PO BID PRN 03/31/16 Reported Nexium (Esomeprazole DR) 40 Mg Capdr 40 Mg PO DAILY 03/31/16 Reported Levoxyl (Levothyroxine Sodium) 75 Mcg Tab 75 Mcg PO DAILY 03/31/16 Reported Family History Patient's son had prostate cancer and patient's brother 2 weeks ago from complications of diabetes and heart disease. Mother had arthritis, renal failure Social History Patient denies smoking. Denies drinking alcohol. (Mariama Gaxiola) Review of Systems Constitutional: COMPLAINS OF: Fatigue Respiratory: DENIES: Cough, Shortness of breath Cardiovascular: DENIES: Chest pain Gastrointestinal: COMPLAINS OF: Abdominal pain, Constipation, Heartburn, DENIES: Black stools, Bloody stools, Diarrhea, Nausea, Vomiting, Swelling of Abdomen Neurologic: DENIES: Headache Psychiatric: DENIES: Confusion ROS Aphasia (Mariama Gaxiola) GI Exam Vitals I&O Vital Signs Date Time Temp Pulse Resp B/P Pulse Ox O2 Delivery O2 Flow Rate FiO2 04/01/16 15:57 99.4 72 18 171/71 92 04/01/16 15:20 74 18 163/76 97 Room Air 04/01/16 12:28 75 18 164/76 96 Room Air 04/01/16 09:29 64 18 153/68 100 Room Air 04/01/16 06:11 65 18 139/63 100 Room Air 03/31/16 23:41 78 18 161/78 100 Room Air 03/31/16 21:28 67 18 171/80 98 Room Air Imaging Last Impressions Gastric Emptying Nuclear Medicine 04/01/16 0000 Signed Impressions: Service Date/Time: March 10:04 - CONCLUSION: Severe gastroparesis. Jay Mckeon MD Abdomen/Pelvis CT 03/31/16 0000 Signed Impressions: Service Date/Time: Thursday, March 31, 2016 18:40 - CONCLUSION: 1. No acute findings. Colonic diverticulosis. 2. Cholecystectomy with biliary ductal dilatation to 14 mm. 3. There is a celiac artery stent. Da Florence MD Laboratory Test 03/31/16 04/01/16 22:18 05:30 Lactic Acid Level 1.1 mmol/L White Blood Count 6.8 TH/MM3 Red Blood Count 4.53 MIL/MM3 Hemoglobin 12.8 GM/DL Hematocrit 37.6 % Mean Corpuscular Volume 82.9 FL Mean Corpuscular Hemoglobin 28.3 PG Mean Corpuscular Hemoglobin 34.2 % Concent Red Cell Distribution Width 14.7 % Platelet Count 317 TH/MM3 Mean Platelet Volume 7.9 FL Neutrophils (%) (Auto) 53.8 % Lymphocytes (%) (Auto) 33.4 % Monocytes (%) (Auto) 10.6 % Eosinophils (%) (Auto) 1.5 % Basophils (%) (Auto) 0.7 % Neutrophils # (Auto) 3.7 TH/MM3 Lymphocytes # (Auto) 2.3 TH/MM3 Monocytes # (Auto) 0.7 TH/MM3 Eosinophils # (Auto) 0.1 TH/MM3 Basophils # (Auto) 0.0 TH/MM3 CBC Comment DIFF FINAL Differential Comment Sodium Level 138 MEQ/L Potassium Level 3.7 MEQ/L Chloride Level 104 MEQ/L Carbon Dioxide Level 23.6 MEQ/L Anion Gap 10 MEQ/L Blood Urea Nitrogen 9 MG/DL Creatinine 0.86 MG/DL Estimat Glomerular Filtration 63 ML/MIN Rate Random Glucose 94 MG/DL Calcium Level 8.7 MG/DL Total Bilirubin 0.3 MG/DL Aspartate Amino Transf 10 U/L (AST/SGOT) Alanine Aminotransferase 13 U/L (ALT/SGPT) Alkaline Phosphatase 56 U/L Total Protein 7.0 GM/DL Albumin 3.6 GM/DL Date/Time Procedure Status Source Growth 03/31/16 17:05 Urine Culture - Preliminary Resulted Urine Random Urine <10,000 CFU/ML MIXED JESSICA... Physical Examination HEENT: Normocephalic; atraumatic; no jaundice. Throat is clear. NECK: Neck is supple, no JVD, no lymphadenopathy. CHEST: CTA CARDIAC: RRR ABDOMEN: Soft, nondistended, mild epigastric tenderness no hepatosplenomegaly; bowel sounds are present in all four quadrants. EXTREMITIES: No clubbing, cyanosis, or edema. SKIN: Normal; no rash; no jaundice. MAGNETIC TAPE WINDER: APhasia, lethargic, but oriented (Mariama Gaxiola) Assessment and Plan Plan ASSESSMENT: - Abdominal pain/Gastroparesis. Pt reports a burning epigastric pain. She has had this intermittent for several years, but states that it has been more severe for the past week. She has a hx of gastroparesis, gastritis, Schatzki 's ring, and constipation and has been on Nexium, Reglan, and stool softeners at one time. She reports that the nexium did help in the past, but that she is no longer taking this. She also has had botox injections in deandre past and reports that this has helped, but that her pain gradually came back. More recently, she has been on Reglan and Miralax. She is no longer taking the Nexium. She cannot tell when this was stopped. Last EGD with dilatation and Botox injections (11/13/14) gastritis in the antrum, Schatzki's ring, bile in stomach, retroflex views revealed a hiatal hernia. 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 She had a Colonoscopy (04/20/12) moderate diverticulosis in the sigmoid colon, diminutive polyp at the hepatic flexure, moderate diverticulosis in the sigmoid colon diminutive polyp in the rectum, normal colon otherwise, medium internal hemorrhoids, perianal skin tags, prolapsed hemorrhoids. Right colon biopsy with benign colonic mucosa with minimal melanosis coli, hepatic flexure biopsy with tubular adenoma , left colon biopsy with benign colonic mucosa with mild melanosis coli, rectum with hyperplastic polyp. Of note, she had a CTA thoracic abdominal aorta in November of 2015 and it did show suspected occlusion of the celiac stent- a referral to IR was placed at that time to further evaluate this, but it is unclear if this was ever done. Abdomen/Pelvis CT (03/31/16)----> 1. No acute findings. Colonic diverticulosis. 2. Cholecystectomy with biliary ductal dilatation to 14 mm. 3. There is a celiac artery stent. GES (04/01/16)---> Severe gastroparesis. LFT normal. PPI. Will increase protonix to bid dosing and add reglan and bethanechol to see if this helps. Further recommendations to follow based on results of this. PLAN: - Soft diet - Increase protonix to 40mg po BID - Add Reglan - Add Bethenchol - Add Miralax - Monitor labs - Supportive care - Further recommendations to follow based on results of above - Pt seen and examined by Dr. Reed and myself and this note is written on his behalf (Mariama Gaxiola) Physician Comments Seen and examined with Ms. Khalida GENTILE, no clear reason for abdominal pain seen on CT. Chronic abdominal pain, with gastroparesis. Add bethanecol to reglan and protonix. Possible egd inpt. vs. oupt. depending upon clinical course. Thank you (Toribio Reed MD) Mariama Gaxiola Apr 01, 2016 17:15 Toribio Reed MD Apr 01, 2016 18:39
[2016-04-01] MEDS: metFORMIN HCL 500 MG TAB PO SCH (17:47)
[2016-04-01] MEDS: POLYETHYLENE GLYCOL 17 GM PKG PO SCH (19:30)
[2016-04-01] MEDS ORDERED: cefTRIAXone INJ 1,000 MG in SODIUM CHLORIDE 0.9% INJ 100 ML IV SCH (21:00)
[2016-04-01 21:03] VITALS: BP 154/76; PULSE 74; RESP 18; TEMP 98.9; O2SAT 97
[2016-04-01] MEDS: PREGABALIN 75 MG CAP PO SCH (21:41)
[2016-04-01] MEDS: BETHANECHOL CHL 10 MG TAB PO SCH (21:41)
[2016-04-01] MEDS: METOCLOPRAMIDE HCL 10 MG/2 ML VIAL IV PUSH SCH (21:41)
[2016-04-01] MEDS: DOCUSATE SODIUM 100 MG CAP PO SCH (21:41)
[2016-04-02] MEDS: SODIUM CHLOR 0.9% 1000 ML INJ 1,000 ML IV SCH (05:18)
[2016-04-02] MEDS ORDERED: LEVOTHYROXINE SODIUM 75 MCG TAB PO SCH (06:00)
[2016-04-02] MEDS: METOCLOPRAMIDE HCL 10 MG/2 ML VIAL IV PUSH SCH (06:26)
[2016-04-02] MEDS: BETHANECHOL CHL 10 MG TAB PO SCH (06:26)
[2016-04-02] MEDS: HEPARIN SODIUM - SQ 10,000 UNITS/ML VIAL SQ SCH (06:26)
[2016-04-02 08:23] VITALS: BP 134/62; PULSE 64; RESP 18; TEMP 98.2; O2SAT 99
[2016-04-02] MEDS ORDERED: PANTOPRAZOLE SOD 40 MG DELAYED RELEASE TAB PO SCH ×2 (09:00)
[2016-04-02] MEDS ORDERED: CLOPIDOGREL 75 MG TAB PO SCH (09:00)
--- NOTE | 2016-04-02 09:18 | HHI.GIFU ---
Subjective Remarks Resting in bed. States her abdominal pain has improved and she is no longer having the burning discomfort. States she has not had a bowel movement and that the Miralax did not work for her at home and is requesting a dose of MOM. (Naveen Gaxiolatracy GENTILE) Objective Vitals I&O Vital Signs Date Time Temp Pulse Resp B/P Pulse Ox O2 Delivery O2 Flow Rate FiO2 04/02/16 08:23 98.2 64 18 134/62 99 04/01/16 21:03 98.9 74 18 154/76 97 04/01/16 15:57 99.4 72 18 171/71 92 04/01/16 15:20 74 18 163/76 97 Room Air 04/01/16 12:28 75 18 164/76 96 Room Air 04/01/16 09:29 64 18 153/68 100 Room Air Laboratory Date/Time Procedure Status Source Growth 03/31/16 17:05 Urine Culture - Preliminary Resulted Urine Random Urine <10,000 CFU/ML MIXED JESSICA... Imaging Last Impressions Gastric Emptying Nuclear Medicine 04/01/16 0000 Signed Impressions: Service Date/Time: March 10:04 - CONCLUSION: Severe gastroparesis. Jay Mckeon MD Abdomen/Pelvis CT 03/31/16 0000 Signed Impressions: Service Date/Time: Thursday, March 31, 2016 18:40 - CONCLUSION: 1. No acute findings. Colonic diverticulosis. 2. Cholecystectomy with biliary ductal dilatation to 14 mm. 3. There is a celiac artery stent. Da Florence MD Physical Exam HEENT: Normocephalic; atraumatic; no jaundice. Throat is clear. NECK: Neck is supple, no JVD, no lymphadenopathy. CHEST: CTA CARDIAC: RRR ABDOMEN: Soft, nondistended, nontender; no hepatosplenomegaly; bowel sounds are present in all four quadrants. EXTREMITIES: No clubbing, cyanosis, or edema. SKIN: Normal; no rash; no jaundice. INDEPENDENT PRODUCER: No focal deficits; alert and oriented times three, speech slow (Mariama Gaxioladavid GENTILE) Assessment and Plan Plan ASSESSMENT: - Abdominal pain/Gastroparesis. Pt reports a burning epigastric pain. She has had this intermittent for several years, but states that it has been more severe for the past week. She has a hx of gastroparesis, gastritis, Schatzki 's ring, and constipation and has been on Nexium, Reglan, and stool softeners at one time. She reports that the nexium did help in the past, but that she is no longer taking this. She also has had botox injections in deandre past and reports that this has helped, but that her pain gradually came back. More recently, she has been on Reglan and Miralax. She is no longer taking the Nexium. She cannot tell when this was stopped. Last EGD with dilatation and Botox injections (11/13/14) gastritis in the antrum, Schatzki's ring, bile in stomach, retroflex views revealed a hiatal hernia. 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 She had a Colonoscopy (04/20/12) moderate diverticulosis in the sigmoid colon, diminutive polyp at the hepatic flexure, moderate diverticulosis in the sigmoid colon diminutive polyp in the rectum, normal colon otherwise, medium internal hemorrhoids, perianal skin tags, prolapsed hemorrhoids. Right colon biopsy with benign colonic mucosa with minimal melanosis coli, hepatic flexure biopsy with tubular adenoma , left colon biopsy with benign colonic mucosa with mild melanosis coli, rectum with hyperplastic polyp. Of note, she had a CTA thoracic abdominal aorta in November of 2015 and it did show suspected occlusion of the celiac stent- a referral to IR was placed at that time to further evaluate this, but it is unclear if this was ever done. Abdomen/Pelvis CT (03/31/16)----> 1. No acute findings. Colonic diverticulosis. 2. Cholecystectomy with biliary ductal dilatation to 14 mm. 3. There is a celiac artery stent. GES (04/01/16)---> Severe gastroparesis. LFT normal. PPI with BID dosing, Reglan, Bethanechol. Clinically much improved today, no longer having the burning pain and would like to go home. - Constipation. No BM. Miralax was ordered yesterday, but patient reports that this does not help and she is requesting a dose of MOM. Will order this. PLAN: - Soft diet - Cont. Protonix - Cont. Reglan - Cont. Bethenchol - Cont. Miralax - MOM x 1 today - If tolerates diet, okay to d/c home from GI standpoint with outpatient fu in 2 weeks - Pt seen and examined by Dr. Reed and myself and this note is written on his behalf (Mariama Gaxiola) Physician Comments Seen and examined with KRUPA, doing well. Continue bethanecol, reglan for short term. GI fu in 02 weeks upon dc. Will sign off, Thank you. (Toribio Reed MD) Mariama Gaxiola Apr 02, 2016 09:18 Toribio Reed MD Apr 02, 2016 13:23
[2016-04-02] MEDS: metFORMIN HCL 500 MG TAB PO SCH (09:25)
[2016-04-02] MEDS: PREGABALIN 75 MG CAP PO SCH (09:25)
[2016-04-02] MEDS: DOCUSATE SODIUM 100 MG CAP PO SCH (09:25)
[2016-04-02] MEDS: POLYETHYLENE GLYCOL 17 GM PKG PO SCH (09:26)
[2016-04-02] MEDS: SODIUM CHLORIDE 0.9% FLUSH 5 ML FLUSH FLUSH SCH (09:26)
[2016-04-02] MEDS ORDERED: MAGNESIUM HYDROXIDE SUSP 30 ML CUP PO ONE (09:30)
--- NOTE | 2016-04-02 10:46 | HHI.PR ---
Subjective Remarks Follow-up for abdominal pain and gastroparesis. Patient denies any further abdominal pain, nausea, vomiting. Has been tolerating diet. Wants to go home. Objective Vitals Vital Signs Date Time Temp Pulse Resp B/P Pulse Ox O2 Delivery O2 Flow Rate FiO2 04/02/16 08:23 98.2 64 18 134/62 99 04/01/16 21:03 98.9 74 18 154/76 97 04/01/16 15:57 99.4 72 18 171/71 92 04/01/16 15:20 74 18 163/76 97 Room Air 04/01/16 12:28 75 18 164/76 96 Room Air Result Diagram: 04/01/16 0530 04/01/16 0530 Imaging Last Impressions Gastric Emptying Nuclear Medicine 04/01/16 0000 Signed Impressions: Service Date/Time: March 10:04 - CONCLUSION: Severe gastroparesis. Jay Mckeon MD Abdomen/Pelvis CT 03/31/16 0000 Signed Impressions: Service Date/Time: Thursday, March 31, 2016 18:40 - CONCLUSION: 1. No acute findings. Colonic diverticulosis. 2. Cholecystectomy with biliary ductal dilatation to 14 mm. 3. There is a celiac artery stent. Da Florence MD Objective Remarks GENERAL: Well-developed well-nourished. In no acute distress. SKIN: Warm and dry. No lesions noted. HEENT: Normocephalic. Pupils equal and round. Mucous membranes pink and moist. CARDIOVASCULAR: Regular rate and rhythm. No murmur appreciated. RESPIRATORY: No accessory muscle use. Clear to auscultation. Breath sounds equal bilaterally. GASTROINTESTINAL: Abdomen soft, mild epigastric TTP, nondistended. Bowel sounds x4. MUSCULOSKELETAL: No obvious deformities. No clubbing or cyanosis. No edema. NEUROLOGICAL: Awake and alert. Expressive aphasia. Moves upper and lower extremities spontaneously. PSYCHIATRIC: Appropriate mood and affect; insight and judgment normal. A/P Problem List: (1) Abdominal pain ICD Code: R10.9 Status: Acute (2) Urinary tract infection ICD Code: N39.0 Status: Acute (3) Diabetes ICD Code: E11.9 Status: Chronic (4) Hypokalemia ICD Code: E87.6 Status: Resolved (5) Hyponatremia ICD Code: E87.1 Status: Resolved (6) Hypothyroidism ICD Code: E03.9 Status: Chronic Assessment and Plan This is an 86-year-old female with history of cyclic chronic abdominal pain, diabetes, arthritis, dysarthria, back pain who presented with abdominal pain Abdominal pain, nausea, vomiting: Upon reviewing records, it appears this is been extensively worked up in the past by gastroenterology. The patient has had multiple EGDs and colonoscopies which have been nondiagnostic. Patient also had a mesenteric artery stent placed after which the patient still had abdominal pain and cholecystectomy. Imaging/labs review: CT abdomen and pelvis showed no acute findings. Gastric emptying study was performed which showed severe gastroparesis with no response to Reglan. Lactic acid 1.1, mesenteric ischemia ruled out. -Consulted gastroenterology, added Reglan and bethanechol, cleared for discharge and outpatient follow-up -Patient and daughter educated on eating small frequent meals -Avoid narcotics or medications that might decrease motility -Supportive care Abnormal UA: UA with evidence of UTI, however urine culture with mixed radha. No need for further antibiotics. Diabetes mellitus: Seems controlled. Continue home metformin. Hyponatremia/hypokalemia: Mild. Given oral potassium replacement. Given IVF bolus. Electrolytes within normal limits now. Resolved. Other chronic medical conditions include neuropathy, CVA, GERD, hypothyroidism: Stable at this time and will continue home medications as indicated DVT prophylaxis: Heparin. SCDs. Written by Sinan Johnson, acting as scribe for Dr. Castillo on 04/02/16 at 10:45. The documentation accurately reflects the work performed [id number] by pr Dr. Castillo on 04/02/16 at 10:45. Discharge Planning Discharge patient to home Condition on discharge: Improved Diabetic Diet as tolerated with small frequent meals Regular activity Rx written: Reglan, bethanechol Follow-up with primary care physician and gastroenterology Problem Qualifiers (1) Abdominal pain: Qualified Code: R10.13 - Epigastric pain (2) Urinary tract infection: Qualified Code: N30.01 - Acute cystitis with hematuria (3) Diabetes: Qualified Code: E11.43 - Type 2 diabetes mellitus with diabetic autonomic neuropathy, without long-term current use of insulin (4) Hypothyroidism: Qualified Code: E03.9 - Hypothyroidism, unspecified type Sinan Johnson Apr 02, 2016 10:46 Agustina Castillo MD Apr 02, 2016 17:12
[2016-04-02] MEDS ORDERED: BETH10 PO (10:47)
[2016-04-02] MEDS ORDERED: REGL10TA5 PO (10:47)
--- NOTE | 2016-04-02 17:14 | HHI.DCPOC ---
Discharge Care Plan Goals to Promote Your Health * To prevent worsening of your condition and complications * To maintain your health at the optimal level Directions to Meet Your Goals Take your medications as prescribed Follow your dietary instruction Follow activity as directed Keep your appointments as scheduled Take your immunizations and boosters as scheduled If your symptoms worsen call your PCP, if no PCP go to Urgent Care Center or Emergency Room Smoking is Dangerous to Your Health. Avoid second hand smoke Call the 24-hour hour crisis hotline for domestic abuse at Agustina Castillo MD Apr 02, 2016 17:14
== END 2016-04-02 13:36 | disposition home or self-care (01) ==
LOC: NETRI 12:27 → NEDA 20:42 → NEDH 04-01 00:42 → NEPGCP 04-01 15:40
PROVIDERS: ADMIT Hospitalist; ATTEND Hospitalist
DX: N30.01 Acute cystitis with hematuria (principal); M79.7 Fibromyalgia; M06.9 Rheumatoid arthritis, unspecified; K58.9 Irritable bowel syndrome, unspecified; K44.9 Diaphragmatic hernia without obstruction or gangrene; K21.9 Gastro-esophageal reflux disease without esophagitis; K31.84 Gastroparesis; E11.43 Type 2 diabetes mellitus with diabetic autonomic (poly)neuropathy; E03.9 Hypothyroidism, unspecified; K64.9 Unspecified hemorrhoids; Z79.01 Long term (current) use of anticoagulants; F41.9 Anxiety disorder, unspecified; E78.00 Pure hypercholesterolemia, unspecified; R07.9 Chest pain, unspecified; Z79.899 Other long term (current) drug therapy; Z79.84 Long term (current) use of oral hypoglycemic drugs; R63.0 Anorexia; K55.9 Vascular disorder of intestine, unspecified; E78.5 Hyperlipidemia, unspecified; G62.9 Polyneuropathy, unspecified; K57.30 Diverticulosis of large intestine without perforation or abscess without bleeding; E87.6 Hypokalemia; E87.1 Hypo-osmolality and hyponatremia; K22.2 Esophageal obstruction; K29.70 Gastritis, unspecified, without bleeding; I69.320 Aphasia following cerebral infarction
CPT/HCPCS: 74177; 78264; 80053; 81001; 83605; 83690; 85025; 87086; 93005; 96361; 96374; 96375; 96376; 97163; 99285; A9541; C9113; G0378; G8987; G8988; J0696; J1644; J2270; J2405; J2765; J7030; J7040; Q9967

== ENCOUNTER → 2016-11-15 | Day surgery (SDC) | payer OTHER ==
[~2016-11-15] MED LIST changes: +ASPI81TA81; +BETH10 PO; -CLOP75 PO; +COLA100C3 PO; -DOCU1CAP39 PO; +LACTATED RINGER'S 1000 ML INJ 1,000 ML ONE; -LEVO75TA3 PO; +LEVO75TA43 PO; -MAPA325T6 PO; -METF500 PO; +METF500T PO; -METO10TA PO; +MIRA3350; -MIRA33502 PO; +ONABOTULINUMTOXINA INJ 100 UNITS/VIAL ONE; +PLAV75TA29 PO; -POLYSOL14 EACH EYE; +PROPOFOL 200 MG/20 ML AMP IV ONE; +REGL10TA5 PO; +SODIUM CHLORIDE 0.9% INJ 10 ML ONE; -ST JTAB PO
--- NOTE | 2016-11-15 09:31 | GIPROC ---
[facility] [address] [facility], [address] EGD WITH DILATION PROCEDURE REPORT EXAM DATE: 11/15/2016 PATIENT NAME: Marybeth Padilla MR#: [id number] BIRTHDATE: 1930 ATTENDING: Sonia Siegel MD ORDER #: [id number] [employer]: STATUS: outpatient INDICATIONS: The patient is a 86 yr old female here for an EGD with dilation due to dysphagia esophageal spasm PROCEDURE PERFORMED: EGD w/ biopsy EGD w/ dilation of esophagus via guidewire EGD w/ directed submucosal injection(s), any substance MEDICATIONS: None and Per Anesthesia. TOPICAL ANESTHETIC: none CONSENT: The patient understands the risks and benefits of the procedure and understands that these risks include, but are not limited to: sedation, allergic reaction, infection, perforation and/or bleeding. Alternative means of evaluation and treatment include, among others: physical exam, x-rays, and/or surgical intervention. The patient elects to proceed with this endoscopic procedure. medical equipment was checked for proper function. Hand hygiene and appropriate measures for infection prevention was taken. After the risks, benefits and alternatives of the procedure were thoroughly explained, Informed consent was verified, confirmed and timeout was successfully executed by the treatment team. The patient was anesthetized with topical anesthesia and the EC-[id number] ([id number]) endoscope was introduced through the mouth and advanced to the second portion of the duodenum. The instrument was slowly withdrawn as the mucosa was fully examined. Gastritis antrum-biopsy duodenum normal-biopsy esopahgitis distal esophagus-biopsy Schatzki's ring -s/p dilatation using Savary dilatators 16 BOTOX injected 100 units -25 units in each quadrant eg junction. Dilation was performed at gastroesophageal junction. DILATOR: SIZE(S): RESISTANCE: HEME: APPEARANCE: Dilator: Savary over guidewire Size(s): 16 COMMENT: Retroflexed views revealed a hiatal hernia ADVERSE EVENTS: There were no complications. IMPRESSIONS: 1. Gastritis antrum-biopsy duodenum normal-biopsy esopahgitis distal esophagus-biopsy Schatzki's ring -s/p dilatation using Savary dilatators 16 BOTOX injected 100 units -25 units in each quadrant eg junction 2. Retroflexed views revealed a hiatal hernia RECOMMENDATIONS: 1. Await biopsy results. Biopsy results will not be ready for 7-10 days. If you don't hear from us in two weeks, call our office for biopsy results. 2. Anti-reflux regimen 3. Continue PPI 4. Dilatations PRN REPEAT EXAM: EGD pending biopsy results Sonia Siegel MD eSigned: Sonia Siegel MD 11/15/2016 9:30 AM cc: Mell Vargas PATIENT NAME: Marybeth Padilla MR#: [id number]
== END | disposition home or self-care (01) ==
LOC: ESDC 07:01
PROVIDERS: ATTEND Internal Medicine Gastroenterology
DX: R13.10 Dysphagia, unspecified (principal); K22.4 Dyskinesia of esophagus; K29.70 Gastritis, unspecified, without bleeding; K20.9 Esophagitis, unspecified; K22.2 Esophageal obstruction; K44.9 Diaphragmatic hernia without obstruction or gangrene
CPT/HCPCS: 00740; 43239; 43248; 88305; 88312; J0585; J7120

== ENCOUNTER 2017-06-12 15:36 | Emergency (ER) | payer OTHER ==
[~2017-06-12] VITALS: Ht 157.5 cm; Wt 70.0 kg
[~2017-06-12 15:36] MED LIST changes: -LACTATED RINGER'S 1000 ML INJ 1,000 ML ONE; -ONABOTULINUMTOXINA INJ 100 UNITS/VIAL ONE; -PROPOFOL 200 MG/20 ML AMP IV ONE; -SODIUM CHLORIDE 0.9% INJ 10 ML ONE
[2017-06-12 15:41] VITALS: BP 166/75; PULSE 84; RESP 17; TEMP 98.5; O2SAT 92
[2017-06-12 16:00] VITALS: BP 143/70; PULSE 71; RESP 16; O2SAT 93
[2017-06-12] MEDS ORDERED: SODIUM CHLORIDE 0.9% FLUSH 10 ML FLUSH IVF PRN (16:00)
--- NOTE | 2017-06-12 16:02 | PD ---
HPI Chief Complaint: Syncope/Near-Syncope Time Seen by Provider: 15:45 Travel History International Travel<30 days: No Contact w/Intl Traveler<30days: No Traveled to known affect area: No History of Present Illness HPI Is an 87-year-old female presents emergency department for evaluation of dizziness and near syncopal episode. 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 She is able to indicate the writing and understands and has no other neurologic deficits. She had been seen by a neurologist in [facility] and said maybe it was ALS, she is seen in [place] and they do not know what is causing her symptoms. They are still looking for a third opinion or considering [facility]. The patient apparently lost her balance and fell backwards hitting her head, denies any neck pain chest pain shortness of breath abdominal pain nausea vomiting diarrhea. She does have a history of coronary artery disease but states she has been worked up for this significantly in the past. Symptoms happened just prior to arrival, resolved, context as above, associated signs and symptoms as above per [facility] Past Medical History Hx Anticoagulant Therapy: Yes Arthritis: Yes (RHEUMATOID) Asthma: No Autoimmune Disease: No Blood Disorders: No Anxiety: Yes Depression: No Heart Rhythm Problems: No Cancer: No Cardiac Catheterization: Yes (2003 ) Cardiovascular Problems: Yes High Cholesterol: Yes Chemotherapy: No Chest Pain: Yes Congestive Heart Failure: No COPD: No Diabetes: Yes Patient Takes Glucophage: Yes (in am ) Diminished Hearing: No Endocrine: No Fibromyalgia: Yes Gastrointestinal Disorders: No GERD: Yes Glaucoma: No Headaches: No Hepatitis: No Hiatal Hernia: Yes Hypertension: No Immune Disorder: No Kidney Stones: No Medical other: Yes (IBS;GERD) Musculoskeletal: Yes (FIBROMYALGIA; RHEUMATOID ARTHRITIS; CARPAL TUNNEL SYNDROME) Neurologic: No Psychiatric: No Reproductive: No Respiratory: Yes (BRONCHITIS) Myocardial Infarction: No Radiation Therapy: No Renal Failure: No Seizures: No Sleep Apnea: No Thyroid Disease: Yes Ulcer: No : 7 Para: 7 Tubal Ligation: Yes (1962) Past Surgical History Abdominal Surgery: Yes (LAP YVETTE) AICD: No Cardiac Surgery: No Section: Yes (1962) Cholecystectomy: Yes Coronary Stent: Yes (2003 X 1) Ear Surgery: No Endocrine Surgery: No Eye Surgery: Yes (cataracts) Genitourinary Surgery: No Gynecologic Surgery: Yes Hysterectomy: Yes Neurologic Surgery: Yes (CERVICAL LAMI C4-C7 /FUSION) Oral Surgery: No Pacemaker: No Thoracic Surgery: No Other Surgery: Yes (SPINAL CORD STIMULATOR INSERTION/REMOVAL) Social History Alcohol Use: No Tobacco Use: No Substance Use: No Allergies-Medications (Allergen,Severity, Reaction): Coded Allergies: ciprofloxacin (Unverified Allergy, Unknown, 10/05/16) hydromorphone (Unverified Allergy, Unknown, 10/05/16) levofloxacin (Unverified Allergy, Unknown, 10/05/16) metronidazole (Unverified Allergy, Unknown, 10/05/16) Reported Meds & Prescriptions Reported Meds & Active Scripts Active Macrobid (Nitrofurantoin Monoh/Nitrofur Macro) 100 Mg Cap 100 Mg PO BID 7 Days Reported Colace (Docusate Sodium) 100 Mg Capsule 100 Mg PO DAILY Gabapentin 600 Mg Tab 600 Mg PO BID Omeprazole 40 Mg Cap 40 Mg PO DAILY Plavix (Clopidogrel Bisulfate) 75 Mg Tab 75 Mg PO DAILY Aspir-81 (Aspirin) 81 Mg Tabdr Metformin (Metformin HCl) 500 Mg Tab 500 Mg PO DIRECTED With meals Diazepam 5 Mg Tab 5 Mg PO BID PRN Levoxyl (Levothyroxine Sodium) 75 Mcg Tab 50 Mcg PO DAILY Review of Systems Except as stated in HPI: all other systems reviewed are Neg Physical Exam Narrative GENERAL: Well-developed well-nourished no obvious distress peer SKIN: Focused skin assessment warm/dry. HEAD: Atraumatic. Normocephalic. EYES: Pupils equal and round. No scleral icterus. No injection or drainage. ENT: No nasal bleeding or discharge. Mucous membranes pink and moist. NECK: Trachea midline. No JVD. CARDIOVASCULAR: Regular rate and rhythm. No murmur appreciated. RESPIRATORY: No accessory muscle use. Clear to auscultation. Breath sounds equal bilaterally. GASTROINTESTINAL: Abdomen soft, non-tender, nondistended. Hepatic and splenic margins not palpable. MUSCULOSKELETAL: No obvious deformities. No clubbing. No cyanosis. No edema. NEUROLOGICAL: Awake and alert. Patient is nearly a phasic otherwise cranial nerves II through XII are grossly intact, 5 out of 5 strength in all 4 extremities, ambulance with an even narrow-base gait. Cerebellar testing with [id number] and heel vicente testing negative PSYCHIATRIC: Appropriate mood and affect; insight and judgment normal. Data Data Last Documented VS Vital Signs Date Time Temp Pulse Resp B/P (MAP) Pulse Ox O2 Delivery O2 Flow Rate FiO2 06/12/17 19:44 142/80 (100) 95 06/12/17 16:06 Room Air 06/12/17 16:00 71 16 06/12/17 15:41 98.5 Orders Orders Electrocardiogram (06/12/17 15:58) Complete Blood Count With Diff (06/12/17 15:58) Comprehensive Metabolic Panel (06/12/17 15:58) Magnesium (Mg) (06/12/17 15:58) Troponin I (06/12/17 15:58) Act Partial Throm Time (Ptt) (06/12/17 15:58) Prothrombin Time / Inr (Pt) (06/12/17 15:58) Urinalysis - C+S If Indicated (06/12/17 15:58) Chest, Single Ap (06/12/17 15:58) Ct Brain W/O Iv Contrast(Rout) (06/12/17 15:58) Ct Cerv Spine W/O Contrast (06/12/17 15:58) Ecg Monitoring (06/12/17 15:58) Iv Access Insert/Monitor (06/12/17 15:58) Oximetry (06/12/17 15:58) Sodium Chloride 0.9% Flush (Ns Flush) (06/12/17 16:00) Urine Culture (06/12/17 17:34) Ed Discharge Order (06/12/17 19:16) Labs Laboratory Tests Test 06/12/17 16:00 06/12/17 17:00 06/12/17 17:34 White Blood Count 10.6 TH/MM3 Red Blood Count 4.68 MIL/MM3 Hemoglobin 13.3 GM/DL Hematocrit 40.0 % Mean Corpuscular Volume 85.6 FL Mean Corpuscular Hemoglobin 28.4 PG Mean Corpuscular Hemoglobin Concent 33.2 % Red Cell Distribution Width 15.2 % Platelet Count 413 TH/MM3 Mean Platelet Volume 7.9 FL Neutrophils (%) (Auto) 58.7 % Lymphocytes (%) (Auto) 30.5 % Monocytes (%) (Auto) 8.6 % Eosinophils (%) (Auto) 1.2 % Basophils (%) (Auto) 1.0 % Neutrophils # (Auto) 6.2 TH/MM3 Lymphocytes # (Auto) 3.2 TH/MM3 Monocytes # (Auto) 0.9 TH/MM3 Eosinophils # (Auto) 0.1 TH/MM3 Basophils # (Auto) 0.1 TH/MM3 CBC Comment DIFF FINAL Differential Comment Blood Urea Nitrogen 10 MG/DL Creatinine 0.95 MG/DL Random Glucose 144 MG/DL Total Protein 7.5 GM/DL Albumin 3.6 GM/DL Calcium Level 8.5 MG/DL Magnesium Level 2.2 MG/DL Alkaline Phosphatase 83 U/L Aspartate Amino Transf (AST/SGOT) 13 U/L Alanine Aminotransferase (ALT/SGPT) 21 U/L Total Bilirubin 0.1 MG/DL Sodium Level 137 MEQ/L Potassium Level 4.5 MEQ/L Chloride Level 102 MEQ/L Carbon Dioxide Level 26.3 MEQ/L Anion Gap 9 MEQ/L Estimat Glomerular Filtration Rate 56 ML/MIN Troponin I LESS THAN 0.02 NG/ML Prothrombin Time 10.8 SEC Prothromb Time International Ratio 1.1 RATIO Activated Partial Thromboplast Time 22.3 SEC Urine Color LIGHT-YELLOW Urine Turbidity HAZY Urine pH 6.0 Urine Specific [place] 1.008 Urine Protein NEG mg/dL Urine Glucose (UA) NEG mg/dL Urine Ketones NEG mg/dL Urine Occult Blood NEG Urine Nitrite NEG Urine Bilirubin NEG Urine Urobilinogen LESS THAN 2.0 MG/DL Urine Leukocyte Esterase LARGE Urine RBC 4 /hpf Urine WBC 18 /hpf Urine Squamous Epithelial Cells 15 /hpf Urine Bacteria FEW /hpf Urine Mucus FEW /lpf Microscopic Urinalysis Comment CULTURE INDICATED MDM Medical Decision Making Medical Screen Exam Complete: Yes Emergency Medical Condition: Yes Differential Diagnosis Syncope, cardiogenic syncope, neurogenic syncope, head injury, neck injury, vertigo, cerebellar infarct highly unlikely to Narrative Course Patient roomed in the emergency department, she appears well albeit a phasic. Is very curious her symptoms seem to be isolated to her speech. Certainly with the chronicity of these symptoms I do not think that represents an acute emergency. CT head was negative for intracranial abnormality, CT neck was also negative. Incidental finding of UTI. Last [address] 06/12/17 2698 Signed Impressions: Service Date/Time: Monday, June 12, 2017 16:26 - CONCLUSION: 1. Right posterior parietal scalp soft tissue swelling with hematoma measuring approximately 15 mm. No skull fracture or acute intracranial abnormality is identified. 2. Chronic changes include generalized atrophy and chronic periventricular white matter change. Alex Fountain MD Chest X-Ray 06/12/17 1558 Signed Impressions: Service Date/Time: Monday, June 12, 2017 16:33 - CONCLUSION: 1. Hypoinflation with no acute cardiopulmonary process. 2. 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 No acute cervical spine abnormality is identified. 2. There is osseous fusion between the C5-C7 vertebral bodies and there is degenerative disc disease at C3-C4 and C4-C5. Alex Fountain MD EKG reassuring, basic blood work and troponin reassuring. Discussed with the patient and her family that certainly given her age cardiogenic syncope needs to be considered and she should consider overnight stay in the hospital. Patient seems to have good follow-up and has had many workup recently as well. She ultimately decided that she would rather follow-up with her primary care physician. Discussed return to ED criteria. Discussed fall prevention. She is stable for discharge Diagnosis Primary Impression: Syncope Med/Other Pt SpecificInfo: Prescription(s) given Scripts Nitrofurantoin Monohydrate Macrocrystals (Macrobid) 100 Mg Cap 100 MG PO BID for Infection for 7 Days, #14 CAP 0 Refills Prov: Malcolm Troy MD 06/12/17 Disposition: 01 DISCHARGE HOME Condition: Stable Malcolm Troy MD Jun 12, 2017 16:02
[2017-06-12] MEDS ORDERED: GABA600T PO (16:05)
[2017-06-12] MEDS ORDERED: COLA100C5 PO (16:05)
[2017-06-12] MEDS ORDERED: OMEP40CA2 PO (16:05)
[2017-06-12 16:45] LABS: ALBUMIN 3.6 GM/DL (3.4-5.0); ALT (GPT) 21 U/L (10-53); AST (GOT) 13 U/L (15-37); BICARBONATE 26.3 MEQ/L (21.0-32.0); BLOOD UREA NITROGEN 10 MG/DL (7-18); CALCIUM 8.5 MG/DL (8.5-10.1); CHLORIDE 102 MEQ/L (98-107); CREATININE 0.95 MG/DL (0.50-1.00); GLOMERULAR FILTRATION RATE 56 ML/MIN (>89); GLUCOSE,RANDOM 144 MG/DL (74-106); MAGNESIUM 2.2 MG/DL (1.5-2.5); SODIUM (NA) 137 MEQ/L (136-145)
--- NOTE | 2017-06-12 16:45 | RADRPT ---
EXAM DATE/TIME: 06/12/2017 16:33 [facility] COMPARISON: CHEST SINGLE AP, December 08, 2015, 9:09. INDICATIONS : Fall, hit back of head, chest palpitations. MEDICAL HISTORY : None. SURGICAL HISTORY : None. ENCOUNTER: Initial ACUITY: 1 day PAIN SCORE: 3/10 LOCATION: Bilateral chest FINDINGS: A single view of the chest demonstrates the lungs to be symmetrically hypoinflated with no obvious ac anuja infiltrate. Accounting for low lung findings, the heart size is upper limits of normal. Severe de generative osteoarthritic changes in both shoulders. Osseous structures are otherwise intact. CONCLUSION: 1. Hypoinflation with no acute cardiopulmonary process. 2. 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 This report was verified electronically.
[2017-06-12 16:47] LABS: AUTOMATED NEUTROPHIL # 6.2 TH/MM3 (1.8-7.7); BASOPHIL # 0.1 TH/MM3 (0-0.2); EOSINOPHIL # 0.1 TH/MM3 (0-0.4); EOSINOPHIL % 1.2 % (0.0-4.0); HEMOGLOBIN 13.3 GM/DL (11.6-15.3); LYMPH % 30.5 % (9.0-44.0); LYMPHOCYTE # 3.2 TH/MM3 (1.0-4.8); MEAN CELL VOLUME 85.6 FL (80.0-100.0); MEAN CORPUSCULAR HEMOGLOBIN 28.4 PG (27.0-34.0); MEAN CORPUSCULAR HGB CONC 33.2 % (32.0-36.0); MEAN PLATELET VOLUME 7.9 FL (7.0-11.0); MONO % 8.6 % (0.0-8.0); MONOCYTE # 0.9 TH/MM3 (0-0.9); NEUT % 58.7 % (16.0-70.0); PLATELET COUNT 413 TH/MM3 (150-450); RED BLOOD COUNT 4.68 MIL/MM3 (4.00-5.30); RED CELL DISTRIBUTION WIDTH 15.2 % (11.6-17.2); WHITE BLOOD COUNT 10.6 TH/MM3 (4.0-11.0)
[2017-06-12 16:49] LABS: ALKALINE PHOSPHATASE 83 U/L (45-117); TOTAL BILIRUBIN ADULT 0.1 MG/DL (0.2-1.0); TOTAL PROTEIN 7.5 GM/DL (6.4-8.2); TROPONIN I LESS THAN 0.02 NG/ML (0.02-0.05)
--- NOTE | 2017-06-12 16:49 | RADRPT ---
EXAM DATE/TIME: 06/12/2017 16:26 [facility] COMPARISON: CT BRAIN W/O CONTRAST, September 29, 2015, 8:23. INDICATIONS : Passed out, fell hit posterior head, dizziness. RADIATION DOSE: 31.57 CTDIvol (mGy) MEDICAL HISTORY : Cerebrovascular disease. Cardiovascular disease Diabetes,RA, fibromyalgia SURGICAL HISTORY : Cholecystectomy. Tubal ligation. Hysterectomy. Hernia, spinal cord stimulator, ENCOUNTER: Initial ACUITY: 1 day PAIN SCALE: 7/10 LOCATION: occipital TECHNIQUE: Multiple contiguous axial images were obtained of the head. Using automated exposure control and adj ustment of the mA and/or kV according to patient size, radiation dose was kept as low as reasonably a chievable to obtain optimal diagnostic quality images. DICOM format image data is available electro nically for review and comparison. FINDINGS: CEREBRUM: There is moderate generalized atrophy. Ventricles are normal in size given the degree of atrophy. The re is mild periventricular white matter low attenuation. No evidence of midline shift, mass lesion, h emorrhage or acute infarction. No extra-axial fluid collections are seen. POSTERIOR FOSSA: The cerebellum and brainstem demonstrate no acute finding. Please note that the inferior left cerebel lum was not completely imaged. The 4th ventricle is midline. The cerebellopontine angle is unremark able. EXTRACRANIAL: Visualized sinuses are clear. There is right posterior parietal scalp soft tissue swelling with hemat eri measuring approximately 15 mm. SKULL: The calvaria is intact. No evidence of skull fracture. CONCLUSION: 1. Right posterior parietal scalp soft tissue swelling with hematoma measuring approximately 15 mm. N o skull fracture or acute intracranial abnormality is identified. 2. Chronic changes include generalized atrophy and chronic periventricular white matter change. Alex Fountain MD on June 12, 2017 at 16:43 Board Certified Radiologist. This report was verified electronically.
--- NOTE | 2017-06-12 16:54 | RADRPT ---
EXAM DATE/TIME: 06/12/2017 16:26 [facility] COMPARISON: No previous studies available for comparison. INDICATIONS : Passed out, fell, hit the back of her head. RADIATION DOSE: 17.87 CTDIvol (mGy) MEDICAL HISTORY : Cerebrovascular disease. Cardiovascular disease Diabetes,RA,Fibromyalgia SURGICAL HISTORY : Hysterectomy. Tubal ligation.H hernia, spinal cord stimulator ENCOUNTER: Initial ACUITY: 1 day PAIN SCALE: 7/10 LOCATION: posterior neck TECHNIQUE: Volumetric scanning of the cervical spine was performed. Multiplanar reconstructions in the sagittal, coronal and oblique axial planes were performed. Using automated exposure control and adjustment o f the mA and/or kV according to patient size, radiation dose was kept as low as reasonably achievable to obtain optimal diagnostic quality images. DICOM format image data is available electronically f or review and comparison. FINDINGS: There is normal sagittal spine alignment of the cervical spine. No anterolisthesis or retrolisthesis is present. The atlantoaxial relationship is within normal limits. There is no prevertebral soft tiss ue swelling present. No fracture or dislocation is identified. There is osseous fusion between the C5 -C7 vertebral bodies. Fusion is present in the facet joints at C2-C3. There is mild cervical kyphosis centered at C4-C5. Decreased disc height with end plate osteophytes are present at C3-C4 and C4-C5. Small posterior disc osteophyte complexes are present at these levels. No canal stenosis is appreciat ed. The visualized portions of the posterior fossa, paraspinous soft tissues, and upper lung zones demons trate no acute abnormality. CONCLUSION: 1. No acute cervical spine abnormality is identified. 2. There is osseous fusion between the C5-C7 vertebral bodies and there is degenerative disc disease at C3-C4 and C4-C5. Alex Fountain MD on June 12, 2017 at 16:48 Board Certified Radiologist. This report was verified electronically.
[2017-06-12 17:20] LABS: INTERNATIONAL NORMALIZED RATIO 1.1 RATIO; PROTHROMBIN TIME - PATIENT 10.8 SEC (9.8-11.6)
[2017-06-12 18:12] LABS: BACTERIA, URINE FEW /hpf; BILIRUBIN, URINE NEG (NEG); BLOOD, URINE NEG (NEG); GLUCOSE,URINE NEG (NEG); KETONE, URINE NEG (NEG); MUCUS URINE FEW /lpf (OCC); NITRITE,URINE NEG (NEG); SQUAMOUS EPITHELIAL CELL URINE 15 /hpf (0-5); URINE COLOR LIGHT-YELLOW (YELLW/STRAW); URINE LEUKOCYTE ESTERASE LARGE (NEG)
[2017-06-12] MEDS ORDERED: MACR100C2 PO (19:17)
[2017-06-12 19:44] VITALS: BP 142/80
--- NOTE | 2017-06-12 23:56 | EKG ---
Date Performed: 06/12/2017 Time Performed: 16:01:44 PTAGE: 87 years EKG: Sinus rhythm WITH FIRST DEGREE AV BLOCK ABNORMAL ECG Since the PREVIOUS TRACING , no significant change noted DOCTOR: Mg Parisi Interpretating Date/Time 06/12/2017 23:55:08
== END 2017-06-12 19:45 | disposition home or self-care (01) ==
LOC: NEPC 15:36
DX: R55 Syncope and collapse (principal); N39.0 Urinary tract infection, site not specified; R94.31 Abnormal electrocardiogram [ECG] [EKG]; I25.10 Atherosclerotic heart disease of native coronary artery without angina pectoris; M06.9 Rheumatoid arthritis, unspecified; F41.9 Anxiety disorder, unspecified; E11.9 Type 2 diabetes mellitus without complications; M79.7 Fibromyalgia; K21.9 Gastro-esophageal reflux disease without esophagitis; E78.00 Pure hypercholesterolemia, unspecified; W18.39XA Other fall on same level, initial encounter; Z95.5 Presence of coronary angioplasty implant and graft; Z88.5 Allergy status to narcotic agent; B96.5 Pseudomonas (aeruginosa) (mallei) (pseudomallei) as the cause of diseases classified elsewhere
CPT/HCPCS: 70450; 71045; 72125; 80053; 81001; 83735; 84484; 85025; 85610; 85730; 87077; 87086; 87186; 93005; 99285

== ENCOUNTER 2017-07-05 08:13 | Inpatient (IN) | payer OTHER, MEDICARE ==
[2017-07-05] VITALS (8 sets, daily range): BP systolic 167–181; BP diastolic 74–88; PULSE 72–85; RESP 16–21; TEMP 98.2–98.5; O2SAT 95–98
[~2017-07-05] VITALS: Ht 157.5 cm; Wt 73.7 kg
[~2017-07-05 08:13] MED LIST changes: -BETH10 PO; -COLA100C3 PO; +COLA100C5 PO; +GABA600T PO; -LYRI150C PO; +MACR100C2 PO; -MIRA3350; -NEXI40CA PO; +OMEP40CA2 PO; -REGL10TA5 PO
[2017-07-05] MEDS ORDERED: MORPHINE SULFATE 4 MG/ML INJ IV PUSH ONE (09:00)
[2017-07-05] MEDS ORDERED: SODIUM CHLORIDE 0.9% FLUSH 10 ML FLUSH IV FLUSH PRN ×2 (09:00→15:00)
[2017-07-05] MEDS ORDERED: METOCLOPRAMIDE HCL 10 MG/2 ML VIAL IV PUSH ONE (09:00)
[2017-07-05] MEDS ORDERED: PANTOPRAZOLE SODIUM 40 MG VIAL IVP ONE (09:00)
[2017-07-05] MEDS ORDERED: SODIUM CHLORID 0.9% 500 ML INJ 500 ML IV ONE (09:00)
[2017-07-05 09:26] LABS: AUTOMATED NEUTROPHIL # 7.6 TH/MM3 (1.8-7.7); BASOPHIL # 0.1 TH/MM3 (0-0.2); BASOPHIL % 0.8 % (0.0-2.0); EOSINOPHIL # 0.1 TH/MM3 (0-0.4); EOSINOPHIL % 0.8 % (0.0-4.0); HEMATOCRIT 42.3 % (35.0-46.0); HEMOGLOBIN 14.2 GM/DL (11.6-15.3); LYMPH % 12.7 % (9.0-44.0); LYMPHOCYTE # 1.2 TH/MM3 (1.0-4.8); MEAN CELL VOLUME 84.4 FL (80.0-100.0); MEAN CORPUSCULAR HEMOGLOBIN 28.3 PG (27.0-34.0); MEAN CORPUSCULAR HGB CONC 33.6 % (32.0-36.0); MEAN PLATELET VOLUME 8.1 FL (7.0-11.0); MONO % 4.2 % (0.0-8.0); MONOCYTE # 0.4 TH/MM3 (0-0.9); NEUT % 81.5 % (16.0-70.0); PLATELET COUNT 307 TH/MM3 (150-450); RED BLOOD COUNT 5.01 MIL/MM3 (4.00-5.30); RED CELL DISTRIBUTION WIDTH 15.4 % (11.6-17.2); WHITE BLOOD COUNT 9.3 TH/MM3 (4.0-11.0)
--- NOTE | 2017-07-05 09:35 | PD ---
HPI Chief Complaint: Abdominal Pain Time Seen by Provider: 08:40 Travel History International Travel<30 days: No Contact w/Intl Traveler<30days: No Traveled to known affect area: No History of Present Illness HPI Patient presents to the emergency department complaining of abdominal pain and feeling dizzy and is described as being in the upper abdomen, constant, nonradiating, similar to pain in the past where she was diagnosed with gastroparesis. Unknown aggravating factors or alleviating factors. She has an extensive GI history. Positive for subjective fever, nausea. She denies chills , vomiting, chest pain, shortness of breath, diarrhea. History is primarily from patient's family as she is not verbal. She is able to write certain things down. PFSH Past Medical History Hx Anticoagulant Therapy: Yes Arthritis: Yes (RHEUMATOID) Asthma: No Autoimmune Disease: No Blood Disorders: No Anxiety: Yes Depression: No Heart Rhythm Problems: No Cancer: No Cardiac Catheterization: Yes (2003 ) Cardiovascular Problems: Yes High Cholesterol: Yes Chemotherapy: No Chest Pain: Yes Congestive Heart Failure: No COPD: No Diabetes: Yes Diminished Hearing: No Endocrine: No Fibromyalgia: Yes Gastrointestinal Disorders: No GERD: Yes Glaucoma: No Headaches: No Hepatitis: No Hiatal Hernia: Yes Hypertension: No Immune Disorder: No Kidney Stones: No Musculoskeletal: Yes (FIBROMYALGIA; RHEUMATOID ARTHRITIS; CARPAL TUNNEL SYNDROME) Neurologic: No Psychiatric: No Reproductive: No Respiratory: Yes (BRONCHITIS) Myocardial Infarction: No Radiation Therapy: No Renal Failure: No Seizures: No Sleep Apnea: No Thyroid Disease: Yes Ulcer: No : 7 Para: 7 Tubal Ligation: Yes (1962) Past Surgical History Abdominal Surgery: Yes (LAP YVETTE) AICD: No Cardiac Surgery: No Section: Yes (1962) Cholecystectomy: Yes Coronary Stent: Yes (2003 X 1) Ear Surgery: No Endocrine Surgery: No Eye Surgery: Yes (cataracts) Genitourinary Surgery: No Gynecologic Surgery: Yes Hysterectomy: Yes Neurologic Surgery: Yes (CERVICAL LAMI C4-C7 /FUSION) Oral Surgery: No Pacemaker: No Thoracic Surgery: No Other Surgery: Yes (SPINAL CORD STIMULATOR INSERTION/REMOVAL) Social History Alcohol Use: No Tobacco Use: No Substance Use: No Allergies-Medications (Allergen,Severity, Reaction): Coded Allergies: ciprofloxacin (Unverified Allergy, Unknown, 10/05/16) hydromorphone (Unverified Allergy, Unknown, 10/05/16) levofloxacin (Unverified Allergy, Unknown, 10/05/16) metronidazole (Unverified Allergy, Unknown, 10/05/16) Reported Meds & Prescriptions Reported Meds & Active Scripts Active Macrobid (Nitrofurantoin Monoh/Nitrofur Macro) 100 Mg Cap 100 Mg PO BID 7 Days Reported Colace (Docusate Sodium) 100 Mg Capsule 100 Mg PO DAILY Gabapentin 600 Mg Tab 600 Mg PO BID Omeprazole 40 Mg Cap 40 Mg PO DAILY Plavix (Clopidogrel Bisulfate) 75 Mg Tab 75 Mg PO DAILY Aspir-81 (Aspirin) 81 Mg Tabdr Metformin (Metformin HCl) 500 Mg Tab 500 Mg PO DIRECTED With meals Diazepam 5 Mg Tab 5 Mg PO BID PRN Levoxyl (Levothyroxine Sodium) 75 Mcg Tab 50 Mcg PO DAILY Review of Systems Except as stated in HPI: all other systems reviewed are Neg Physical Exam Narrative GENERAL: In discomfort. SKIN: Focused skin assessment warm/dry. HEAD: Atraumatic. Normocephalic. EYES: Pupils equal and round. No scleral icterus. No injection or drainage. ENT: No nasal bleeding or discharge. Mucous membranes pink and moist. NECK: Trachea midline. No JVD. CARDIOVASCULAR: Regular rate and rhythm. No murmur appreciated. RESPIRATORY: No accessory muscle use. Clear to auscultation. Breath sounds equal bilaterally. GASTROINTESTINAL: Abdomen soft, epigastric tenderness, nondistended. Hepatic and splenic margins not palpable. MUSCULOSKELETAL: No obvious deformities. No clubbing. No cyanosis. No edema. NEUROLOGICAL: Awake and alert. No obvious cranial nerve deficits. Motor grossly within normal limits. Normal speech. PSYCHIATRIC: Appropriate mood and affect; insight and judgment normal. Data Data Last Documented VS Vital Signs Date Time Temp Pulse Resp B/P (MAP) Pulse Ox O2 Delivery O2 Flow Rate FiO2 07/05/17 13:38 82 18 181/74 (109) 97 Room Air 07/05/17 08:16 98.5 Orders Orders Complete Blood Count With Diff (07/05/17 08:50) Comprehensive Metabolic Panel (07/05/17 08:50) Lipase (07/05/17 08:50) Lactic Acid (07/05/17 08:50) Prothrombin Time / Inr (Pt) (07/05/17 08:50) Act Partial Throm Time (Ptt) (07/05/17 08:50) Urinalysis - C+S If Indicated (07/05/17 08:50) Ct Abd/Pel W Iv Contrast(Rout) (07/05/17 08:50) Iv Access Insert/Monitor (07/05/17 08:50) Ecg Monitoring (07/05/17 08:50) Oximetry (07/05/17 08:50) Pantoprazole Inj (Protonix Inj) (07/05/17 09:00) Sodium Chloride 0.9% Flush (Ns Flush) (07/05/17 09:00) Electrocardiogram (07/05/17 08:50) Metoclopramide Inj (Reglan Inj) (07/05/17 09:00) Ckmb (Isoenzyme) Profile (07/05/17 08:50) Troponin I (07/05/17 08:50) Sodium Chlorid 0.9% 500 Ml Inj (Ns 500 M (07/05/17 09:00) Morphine Inj (Morphine Inj) (07/05/17 09:00) Iohexol 350 Inj (Omnipaque 350 Inj) (07/05/17 11:01) Lorazepam Inj (Ativan Inj) (07/05/17 13:45) Pantoprazole Inj (Protonix Inj) (07/05/17 13:45) Invasive Rad Dept Consult (07/05/17 13:46) Admit Order (Ed Use Only) (07/05/17 13:56) Labs Laboratory Tests Test 07/05/17 09:15 07/05/17 09:55 07/05/17 10:21 White Blood Count 9.3 TH/MM3 Red Blood Count 5.01 MIL/MM3 Hemoglobin 14.2 GM/DL Hematocrit 42.3 % Mean Corpuscular Volume 84.4 FL Mean Corpuscular Hemoglobin 28.3 PG Mean Corpuscular Hemoglobin Concent 33.6 % Red Cell Distribution Width 15.4 % Platelet Count 307 TH/MM3 Mean Platelet Volume 8.1 FL Neutrophils (%) (Auto) 81.5 % Lymphocytes (%) (Auto) 12.7 % Monocytes (%) (Auto) 4.2 % Eosinophils (%) (Auto) 0.8 % Basophils (%) (Auto) 0.8 % Neutrophils # (Auto) 7.6 TH/MM3 Lymphocytes # (Auto) 1.2 TH/MM3 Monocytes # (Auto) 0.4 TH/MM3 Eosinophils # (Auto) 0.1 TH/MM3 Basophils # (Auto) 0.1 TH/MM3 CBC Comment DIFF FINAL Differential Comment Urine Color LIGHT-YELLOW Urine Turbidity CLEAR Urine pH 7.0 Urine Specific [place] 1.011 Urine Protein NEG mg/dL Urine Glucose (UA) NEG mg/dL Urine Ketones NEG mg/dL Urine Occult Blood NEG Urine Nitrite NEG Urine Bilirubin NEG Urine Urobilinogen LESS THAN 2.0 MG/DL Urine Leukocyte Esterase MOD Urine RBC 1 /hpf Urine WBC 4 /hpf Urine Squamous Epithelial Cells 2 /hpf Urine Bacteria RARE /hpf Microscopic Urinalysis Comment CULT NOT INDICATED Prothrombin Time 19.0 SEC Prothromb Time International Ratio 1.9 RATIO Activated Partial Thromboplast Time 50.7 SEC Blood Urea Nitrogen 9 MG/DL Creatinine 0.94 MG/DL Random Glucose 106 MG/DL Total Protein 8.7 GM/DL Albumin 4.3 GM/DL Calcium Level 9.3 MG/DL Alkaline Phosphatase 89 U/L Aspartate Amino Transf (AST/SGOT) 26 U/L Alanine Aminotransferase (ALT/SGPT) 19 U/L Total Bilirubin 0.4 MG/DL Sodium Level 135 MEQ/L Potassium Level 4.4 MEQ/L Chloride Level 99 MEQ/L Carbon Dioxide Level 25.0 MEQ/L Anion Gap 11 MEQ/L Estimat Glomerular Filtration Rate 56 ML/MIN Lactic Acid Level 1.3 mmol/L Total Creatine Kinase 89 U/L Troponin I LESS THAN 0.02 NG/ML Lipase 90 U/L [facility] Medical Decision Making Medical Screen Exam Complete: Yes Emergency Medical Condition: Yes Interpretation(s) ECG: SR, 1st degree AV block, STD in lead 2, TWI in V1 and V2 Labs: ua-moderate LE; cbc,chem,coags-PT and PTT increased Last Impressions Abdomen/Pelvis CT 07/05/17 0850 Signed Impressions: Service Date/Time: Wednesday, July 05, 2017 10:46 - CONCLUSION: No acute disease. Jacky Page MD Differential Diagnosis Mesenteric ischemia, ACS, gastroparesis, GERD/ulcer disease, pancreatitis Narrative Course Patient presents to the emergency department with an extensive GI history. She is reporting abdominal pain and nausea. Will check CBC, coags, chemistry, cardiac enzymes, lipase, and get CT abdomen and pelvis with IV contrast. She was given 4 mg IV morphine, Reglan 10 mg IV, Protonix 40 mg IV, and 500 cc normal saline. Patient on Valium and request an antianxiety med.Patient on valium and requesting anti-anxiety meds-will give 1mg IV ativan.. Physician Communication Physician Communication 1230: Spoke to GI corrections corporal, advised to ask radiology to reconstruct CT to assess if stent is patent. If not recommending able to reconstruct, she recommends CTA. 1301: Spoke to radiologist Dr. Singleton. States that the stent was occluded in 2016 and there has been no change compared to today states that the celiac is patent distal to the stent and the SMA is patent. Does not believe a CTA would add any new information. 1333: Discussed the above findings with GI DrNieves Advised ok to admit, that they will see patient as in patient. Diagnosis Primary Impression: Abdominal pain Qualified Codes: R10.13 - Epigastric pain Admitting Information Admitting Physician Requests: Admit Condition: Stable Daniela Nova MD July 05, 2017 09:35
[2017-07-05 10:21] LABS: BLOOD UREA NITROGEN 9 MG/DL (7-18); CREATININE 0.94 MG/DL (0.50-1.00); GLOMERULAR FILTRATION RATE 56 ML/MIN (>89)
[2017-07-05 10:22] LABS: ALBUMIN 4.3 GM/DL (3.4-5.0); ALKALINE PHOSPHATASE 89 U/L (45-117); AST (GOT) 26 U/L (15-37); CALCIUM 9.3 MG/DL (8.5-10.1); GLUCOSE,RANDOM 106 MG/DL (74-106); TOTAL PROTEIN 8.7 GM/DL (6.4-8.2)
[2017-07-05 10:23] LABS: ALT (GPT) 19 U/L (10-53); CHLORIDE 99 MEQ/L (98-107); SODIUM (NA) 135 MEQ/L (136-145); TOTAL BILIRUBIN ADULT 0.4 MG/DL (0.2-1.0); TROPONIN I LESS THAN 0.02 NG/ML (0.02-0.05)
[2017-07-05 10:47] LABS: INTERNATIONAL NORMALIZED RATIO 1.9 RATIO
[2017-07-05 10:48] LABS: BACTERIA, URINE RARE /hpf; BILIRUBIN, URINE NEG (NEG); BLOOD, URINE NEG (NEG); GLUCOSE,URINE NEG (NEG); KETONE, URINE NEG (NEG); NITRITE,URINE NEG (NEG); SQUAMOUS EPITHELIAL CELL URINE 2 /hpf (0-5); URINE COLOR LIGHT-YELLOW (YELLW/STRAW); URINE LEUKOCYTE ESTERASE MOD (NEG)
[2017-07-05] MEDS ORDERED: IOHEXOL 350 MG/ML 10 ML VIAL (for RAD DIAG) IVCONTRAST ONE (11:01)
--- NOTE | 2017-07-05 11:33 | RADRPT ---
EXAM DATE/TIME: 07/05/2017 10:46 This report includes an Addendum and supersedes previous reports for this exam. [facility] COMPARISON: CT ABDOMEN & PELVIS W CONTRAST, March 31, 2016, 18:40. INDICATIONS : Abdominal pain worsening last night. IV CONTRAST: 80 cc Omnipaque 350 (iohexol) IV ORAL CONTRAST: No oral contrast ingested. RADIATION DOSE: 6.57 CTDIvol (mGy) MEDICAL HISTORY : Cardiovascular disease. Hernia, hiatal. SURGICAL HISTORY : Cholecystectomy. Tubal ligation.Hysterectomy. ENCOUNTER: Initial ACUITY: 1 week PAIN SCALE: 4/10 LOCATION: abdomen TECHNIQUE: Volumetric scanning of the abdomen and pelvis was performed. Using automated exposure control and ad justment of the mA and/or kV according to patient size, radiation dose was kept as low as reasonably achievable to obtain optimal diagnostic quality images. DICOM format image data is available electro nically for review and comparison. FINDINGS: Lung bases are clear. Osseous structures are intact. 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 No pleural or pericardial effusions are seen. The patient is status post cholecystectomy and there is stable prominence of the biliary tree. Pancreas, spleen, adrenals, kidneys unremarkable. Uri nary bladder unremarkable. The patient is status post hysterectomy. There is severe diverticulosis of the sigmoid colon and descending colon as well as transverse and ascending colonic diverticulosis. A ppendix normal. No evidence of diverticulitis. No adenopathy or aneurysm. Atherosclerotic plaquing is noted and a celiac artery stent is seen. CONCLUSION: No acute disease. Jacky Page MD on July 05, 2017 at 11:29 Board Certified Radiologist. This report was verified electronically. ADDENDUM: The study is compared to a CT angiogram dated December 08, 2015 which described a suspected occlusion of the celiac stent. The appearance compared to the previous study is similar. There is a widely marrero nt superior mesenteric artery, and excellent opacification of the celiac artery distal to the stent v ia collateral reconstitution via the gastroduodenal artery. Jacky Page MD on July 05, 2017 at 12:52 Board Certified Radiologist. This report was verified electronically.
--- NOTE | 2017-07-05 13:23 | PD.CONS ---
HPI History of Present Illness This is a 87 year old nonverbal female with hx gastroparesis, schatzki ring who presented with epigastric pain, nausea onset last night. She has these symptoms intermittently. She has a celiac trunk stent. She was supposed to have this stent checked on an outpt basis but has not done this. CT was similar to the CT in 2016 showing occluded stent, and showed patent SMA. She is known to Dr Siegel. She had an EGD and dilatation and botox inj 2016 which found esophagitis, gastritis, path reflux esophagitis. Her last colonoscopy was 03/2012 and revealed diverticulosis, polyp. She takes plavix and ASA. She is asking for valium. Pt is limited historian. Hx obtained from pt's daughter, EMR. (Lupe Randle) PFSH Past Medical History Anxiety Hypothyroidism GERD/IBS Rheumatoid arthritis Fibromyalgia Chronic dysarthria, denies CVA Hyperlipidemia Diabetes mellitus Peripheral neuropathy COPD Dysphagia Gastroparesis Esophageal stricture Carpal tunnel syndrome Hiatal hernia PUD Hx ischemic colitis Hx PUD Depression Past Surgical History Cholecystectomy PCI C4-7 fusion Spinal stimulator placement and removal Hysterectomy Celiac stent placement, by radiology Cataract surgery Appendectomy EGD with botox injections Colonoscopy Exploratory laparotomy Umbilical Hernia repair (Lupe Randle) Coded Allergies: ciprofloxacin (Unverified Allergy, Unknown, 10/05/16) hydromorphone (Unverified Allergy, Unknown, 10/05/16) levofloxacin (Unverified Allergy, Unknown, 10/05/16) metronidazole (Unverified Allergy, Unknown, 10/05/16) Family History prostate ca DM heart disease Social History denies toxic habits (Lupe Randle) Review of Systems noncontributory (Lupe Randle) GI Exam Vitals I&O Vital Signs Date Time Temp Pulse Resp B/P (MAP) Pulse Ox O2 Delivery O2 Flow Rate FiO2 07/05/17 10:34 85 17 171/81 (111) 98 Room Air 07/05/17 09:30 98 Room Air 07/05/17 08:16 98.5 72 21 170/86 (114) 98 Imaging Last Impressions Abdomen/Pelvis CT 07/05/17 0850 Signed Impressions: Service Date/Time: Wednesday, July 05, 2017 10:46 - CONCLUSION: No acute disease. Jacky Page MD ADDENDUM: The study is compared to a CT angiogram dated December 08, 2015 which described a suspected occlusion of the celiac stent. The appearance compared to the previous study is similar. There is a widely patent superior mesenteric artery, and excellent opacification of the celiac artery distal to the stent via collateral reconstitution via the gastroduodenal artery. Jacky Page MD Laboratory Test 07/05/17 09:15 07/05/17 09:55 07/05/17 10:21 White Blood Count 9.3 TH/MM3 Red Blood Count 5.01 MIL/MM3 Hemoglobin 14.2 GM/DL Hematocrit 42.3 % Mean Corpuscular Volume 84.4 FL Mean Corpuscular Hemoglobin 28.3 PG Mean Corpuscular Hemoglobin Concent 33.6 % Red Cell Distribution Width 15.4 % Platelet Count 307 TH/MM3 Mean Platelet Volume 8.1 FL Neutrophils (%) (Auto) 81.5 % Lymphocytes (%) (Auto) 12.7 % Monocytes (%) (Auto) 4.2 % Eosinophils (%) (Auto) 0.8 % Basophils (%) (Auto) 0.8 % Neutrophils # (Auto) 7.6 TH/MM3 Lymphocytes # (Auto) 1.2 TH/MM3 Monocytes # (Auto) 0.4 TH/MM3 Eosinophils # (Auto) 0.1 TH/MM3 Basophils # (Auto) 0.1 TH/MM3 CBC Comment DIFF FINAL Differential Comment Urine Color LIGHT-YELLOW Urine Turbidity CLEAR Urine pH 7.0 Urine Specific [place] 1.011 Urine Protein NEG mg/dL Urine Glucose (UA) NEG mg/dL Urine Ketones NEG mg/dL Urine Occult Blood NEG Urine Nitrite NEG Urine Bilirubin NEG Urine Urobilinogen LESS THAN 2.0 MG/DL Urine Leukocyte Esterase MOD Urine RBC 1 /hpf Urine WBC 4 /hpf Urine Squamous Epithelial Cells 2 /hpf Urine Bacteria RARE /hpf Microscopic Urinalysis Comment CULT NOT INDICATED Prothrombin Time 19.0 SEC Prothromb Time International Ratio 1.9 RATIO Activated Partial Thromboplast Time 50.7 SEC Blood Urea Nitrogen 9 MG/DL Creatinine 0.94 MG/DL Random Glucose 106 MG/DL Total Protein 8.7 GM/DL Albumin 4.3 GM/DL Calcium Level 9.3 MG/DL Alkaline Phosphatase 89 U/L Aspartate Amino Transf (AST/SGOT) 26 U/L Alanine Aminotransferase (ALT/SGPT) 19 U/L Total Bilirubin 0.4 MG/DL Sodium Level 135 MEQ/L Potassium Level 4.4 MEQ/L Chloride Level 99 MEQ/L Carbon Dioxide Level 25.0 MEQ/L Anion Gap 11 MEQ/L Estimat Glomerular Filtration Rate 56 ML/MIN Lactic Acid Level 1.3 mmol/L Total Creatine Kinase 89 U/L Troponin I LESS THAN 0.02 NG/ML Lipase 90 U/L Physical Examination HEENT: PERRL; normocephalic; atraumatic; no jaundice. CHEST: CTA CARDIAC: RRR ABDOMEN: Soft, nondistended, nontender; no hepatosplenomegaly; bowel sounds are present in all four quadrants. EXTREMITIES: No clubbing, cyanosis, or edema. SKIN: Normal; no rash; no jaundice. [employer] CLERK: alert (Lupe Randle) Assessment and Plan Plan ASSESSMENT - epigastric pain, nausea - ?gastroparesis. symptoms are similar to prior episodes. poss occluded celiac stent. CT as above. had EGD with dilatation & botox inj 10/2016, findings include esophagitis, gastritis, path reflux esophagitis. PLAN - IR consult to evaluate stent - PPI - supportive care - further recs to follow pt seen by myself and Dr Siegel and this note is on her behalf (Lupe Randle) Physician Comments seen, examined agree with above vit k today, repeat pt/inr in am clear liquid diet angiogram with revision of stent in am egd /dil before discharge (Sonia Siegel MD) Lupe Randle July 05, 2017 13:23 Sonia Siegel MD July 05, 2017 17:37
[2017-07-05] MEDS ORDERED: LORazepam 2 MG/ML VIAL IV PUSH ONE (13:45)
[2017-07-05] MEDS: PANTOPRAZOLE SODIUM 40 MG VIAL IV PUSH SCH (13:45)
[2017-07-05] MEDS ORDERED: NALOXONE HCL 0.4 MG/ML AMP IV PUSH PRN (15:00)
[2017-07-05] MEDS ORDERED: ACETAMINOPHEN 325 MG TAB PO PRN (15:00)
[2017-07-05] MEDS: HEPARIN SODIUM - SQ 10,000 UNITS/ML VIAL SQ SCH (15:33)
[2017-07-05] MEDS: SODIUM CHLOR 0.45% 1000 ML INJ 1,000 ML IV SCH (15:33)
--- NOTE | 2017-07-05 16:44 | HHI.HP ---
HPI Service [facility] Hospitalists Primary Care Physician Unknown Admission Diagnosis abdominal pain Diagnoses: Chief Complaint: Nausea, epigastric pain. Travel History International Travel<30 Days: No Contact w/Intl Traveler <30 Da: No Traveled to Known Affected Are: No History of Present Illness Is an 87-year-old female with extensive past medical history as detailed below presents to [facility] complaining of epigastric pain and nausea which started last night. The patient has been experiencing these symptoms intermittently. Patient has had a celiac trunk stent. As per records the patient was supposed to have the stent checked as an outpatient basis but she did not follow-up with this. There are no reports of vomiting, fevers, chills. Please note that the patient is non verbal and history is obtained from family at bedside. Patient denies radiation and was able to rely pain was constant. No aggravating or alleviating factors could be obtained. Review of Systems Unable to obtain, the patient nonverbal. Past Family Social History Past Medical History Anxiety Hypothyroidism GERD/IBS Rheumatoid arthritis Fibromyalgia Chronic dysarthria, denies CVA Hyperlipidemia Diabetes mellitus Peripheral neuropathy COPD Dysphagia Gastroparesis Esophageal stricture Carpal tunnel syndrome Hiatal hernia PUD Hx ischemic colitis Hx PUD Depression Past Surgical History Cholecystectomy PCI C4-7 fusion Spinal stimulator placement and removal Hysterectomy Celiac stent placement, by radiology Cataract surgery Appendectomy EGD with botox injections Colonoscopy Exploratory laparotomy Umbilical Hernia repair Reported Medications Reported Meds & Active Scripts Active Macrobid (Nitrofurantoin Monoh/Nitrofur Macro) 100 Mg Cap 100 Mg PO BID 7 Days Reported Colace (Docusate Sodium) 100 Mg Capsule 100 Mg PO DAILY Gabapentin 600 Mg Tab 600 Mg PO BID Omeprazole 40 Mg Cap 40 Mg PO DAILY Plavix (Clopidogrel Bisulfate) 75 Mg Tab 75 Mg PO DAILY Aspir-81 (Aspirin) 81 Mg Tabdr Metformin (Metformin HCl) 500 Mg Tab 500 Mg PO DIRECTED With meals Diazepam 5 Mg Tab 5 Mg PO BID PRN Levoxyl (Levothyroxine Sodium) 75 Mcg Tab 50 Mcg PO DAILY Allergies: Coded Allergies: ciprofloxacin (Unverified Allergy, Unknown, 10/05/16) hydromorphone (Unverified Allergy, Unknown, 10/05/16) levofloxacin (Unverified Allergy, Unknown, 10/05/16) metronidazole (Unverified Allergy, Unknown, 10/05/16) Active Ordered Medications Current Medications Medications (Trade) Dose Ordered Sig/Christian Route Start Time Stop Time Status Last Admin (Protonix Inj) 40 mg DAILY IV PUSH 07/05/17 13:45 Sodium Chloride 1,000 ml @ 75 mls/hr [id number] IV 07/05/17 14:57 07/05/17 15:33 (NS Flush) 2 ml UNSCH PRN IV FLUSH 07/05/17 15:00 (NS Flush) 2 ml BID IV FLUSH 07/05/17 21:00 (Tylenol) 650 mg Q4H PRN PO 07/05/17 15:00 (Zofran Odt) 4 mg Q6H PRN PO 07/05/17 16:00 (Heparin Inj) 5,000 units Q12H SQ 07/05/17 16:00 07/05/17 15:33 (Narcan Inj) 0.4 mg UNSCH PRN IV PUSH 07/05/17 15:00 Family History prostate ca DM heart disease Social History denies toxic habits Physical Exam Vital Signs Vital Signs Date Time Temp Pulse Resp B/P (MAP) Pulse Ox O2 Delivery O2 Flow Rate FiO2 07/05/17 13:38 82 18 181/74 (109) 97 Room Air 07/05/17 10:34 85 17 171/81 (111) 98 Room Air 07/05/17 09:30 98 Room Air 07/05/17 08:16 98.5 72 21 170/86 (114) 98 Physical Exam GENERAL: This is a well-nourished, well-developed patient, in no apparent distress. SKIN: No rashes, ecchymoses or lesions. Cool and dry. HEAD: Atraumatic. Normocephalic. No temporal or scalp tenderness. EYES: Pupils equal round and reactive. Extraocular motions intact. No scleral icterus. No injection or drainage. ENT: Nose without bleeding, purulent drainage or septal hematoma. Throat without erythema, tonsillar hypertrophy or exudate. Uvula midline. Airway patent. NECK: Trachea midline. No JVD or lymphadenopathy. Supple, nontender, no meningeal signs. CARDIOVASCULAR: Regular rate and rhythm without murmurs, gallops, or rubs. RESPIRATORY: Clear to auscultation. Breath sounds equal bilaterally. No wheezes , rales, or rhonchi. GASTROINTESTINAL: Abdomen soft, Tender to palpation diffusely, nondistended. No hepato-splenomegaly, or palpable masses. No guarding. MUSCULOSKELETAL: Extremities without clubbing, cyanosis, or edema. No joint tenderness, effusion, or edema noted. No calf tenderness. Negative Homans sign bilaterally. NEUROLOGICAL: Awake and alert. Cranial nerves II through XII intact. Motor and sensory grossly within normal limits. Five out of 5 muscle strength in all muscle groups. Normal speech. Laboratory Laboratory Tests Test 07/05/17 09:15 07/05/17 09:55 07/05/17 10:21 White Blood Count 9.3 Red Blood Count 5.01 Hemoglobin 14.2 Hematocrit 42.3 Mean Corpuscular Volume 84.4 Mean Corpuscular Hemoglobin 28.3 Mean Corpuscular Hemoglobin Concent 33.6 Red Cell Distribution Width 15.4 Platelet Count 307 Mean Platelet Volume 8.1 Neutrophils (%) (Auto) 81.5 Lymphocytes (%) (Auto) 12.7 Monocytes (%) (Auto) 4.2 Eosinophils (%) (Auto) 0.8 Basophils (%) (Auto) 0.8 Neutrophils # (Auto) 7.6 Lymphocytes # (Auto) 1.2 Monocytes # (Auto) 0.4 Eosinophils # (Auto) 0.1 Basophils # (Auto) 0.1 CBC Comment DIFF FINAL Differential Comment Urine Color LIGHT-YELLOW Urine Turbidity CLEAR Urine pH 7.0 Urine Specific [place] 1.011 Urine Protein NEG Urine Glucose (UA) NEG Urine Ketones NEG Urine Occult Blood NEG Urine Nitrite NEG Urine Bilirubin NEG Urine Urobilinogen LESS THAN 2.0 Urine Leukocyte Esterase MOD Urine RBC 1 Urine WBC 4 Urine Squamous Epithelial Cells 2 Urine Bacteria RARE Microscopic Urinalysis Comment CULT NOT INDICATED Prothrombin Time 19.0 Prothromb Time International Ratio 1.9 Activated Partial Thromboplast Time 50.7 Blood Urea Nitrogen 9 Creatinine 0.94 Random Glucose 106 Total Protein 8.7 Albumin 4.3 Calcium Level 9.3 Alkaline Phosphatase 89 Aspartate Amino Transf (AST/SGOT) 26 Alanine Aminotransferase (ALT/SGPT) 19 Total Bilirubin 0.4 Sodium Level 135 Potassium Level 4.4 Chloride Level 99 Carbon Dioxide Level 25.0 Anion Gap 11 Estimat Glomerular Filtration Rate 56 Lactic Acid Level 1.3 Total Creatine Kinase 89 Troponin I LESS THAN 0.02 Lipase 90 Result Diagram: 07/05/17 0915 07/05/17 1021 Imaging Last Impressions Abdomen/Pelvis CT 07/05/17 0850 Signed Impressions: Service Date/Time: Wednesday, July 05, 2017 10:46 - CONCLUSION: No acute disease. Jacky Page MD ADDENDUM: The study is compared to a CT angiogram dated December 08, 2015 which described a suspected occlusion of the celiac stent. The appearance compared to the previous study is similar. There is a widely patent superior mesenteric artery, and excellent opacification of the celiac artery distal to the stent via collateral reconstitution via the gastroduodenal artery. Jacky Page MD Reviewed by me [place] VTE Risk Assessment [place] VTE Risk Assessment: Mod/High Risk (score >= 2) VTE Pharm Contraindication: Coagulopathy,INR elevated Caprini Risk Assessment Model Point Value = 1 Point Value = 2 Point Value = 3 Point Value = 5 Age 41-60 Minor surgery BMI > 25 kg/m2 Swollen legs Varicose veins or History of unexplained or recurrent spontaneous Oral contraceptives or hormone replacement Sepsis (< 1 month) Serious lung disease, including pneumonia (< 1 month) Abnormal pulmonary function Acute myocardial infarction Congestive heart failure (< 1 month) History of inflammatory bowel disease Medical patient at bed rest Age 61-74 Arthroscopic surgery Major open surgery (> 45 min) Laparoscopic surgery (> 45 min) Malignancy Confined to bed (> 72 hours) Immobilizing plaster cast Central venous access Age >= 75 History of VTE Family history of VTE Factor V Leiden Prothrombin [id number] Lupus anticoagulant Anticardiolipin antibodies Elevated serum homocysteine Heparin-induced thrombocytopenia Other congenital or acquired thrombophilia Stroke (< 1 month) Elective arthroplasty Hip, pelvis, or leg fracture Acute spinal cord injury (< 1 month) Prophylaxis Regimen Total Risk Factor Score Risk Level Prophylaxis Regimen 0-1 Low Early ambulation 2 Moderate Order ONE of the following: *Sequential Compression Device (SCD) *Heparin 5000 units SQ BID 3-4 Higher Order ONE of the following medications: *Heparin 5000 units SQ TID *Enoxaparin/Lovenox 40 mg SQ daily (WT < 150 kg, CrCl > 30 mL/min) *Enoxaparin/Lovenox 30 mg SQ daily (WT < 150 kg, CrCl > 10-29 mL/min) *Enoxaparin/Lovenox 30 mg SQ BID (WT < 150 kg, CrCl > 30 mL/min) AND/OR *Sequential Compression Device (SCD) 5 or more Highest Order ONE of the following medications: *Heparin 5000 units SQ TID (Preferred with Epidurals) *Enoxaparin/Lovenox 40 mg SQ daily (WT < 150 kg, CrCl > 30 mL/min) *Enoxaparin/Lovenox 30 mg SQ daily (WT < 150 kg, CrCl > 10-29 mL/min) *Enoxaparin/Lovenox 30 mg SQ BID (WT < 150 kg, CrCl > 30 mL/min) AND *Sequential Compression Device (SCD) Assessment and Plan Problem List: (1) Abdominal pain ICD Code: R10.9 - Unspecified abdominal pain Status: Acute (2) Diabetes ICD Code: E11.9 - Type 2 diabetes mellitus without complications Status: Chronic (3) Hypothyroidism ICD Code: E03.9 - Hypothyroidism, unspecified Status: Chronic Assessment and Plan 1. Abdominal pain/nausea Epigastric pain nausea due to questionable gastroparesis. Possible occluded celiac stent. Admit the patient to the medical floor GI consulted -- angiogram w reviosion of stent in am PPI Supportive care with IV fluids 2. Diabetes mellitus type [address] on SSI with insulin NovoLog monitor Accu-Cheks for blood sugar control Hold metformin 3. Hypothyroidism Continue levothyroxine. 4. Diabetic neuropathy. Continue gabapentin. 5. Hypertension. We will start on clonidine as needed. Continue to monitor vital signs. 6. Coagulopathy Unclear etiology, patient is not on coumadin. Vitamin K Monitor PT/INR Discussed Condition With ED Physician, RN Physician Certification 2 Midnight Certification Type: Admission for Inpatient Services Order for Inpatient Services The services are ordered in accordance with Medicare regulations or non- Medicare payer requirements, as applicable. In the case of services not specified as inpatient-only, they are appropriately provided as inpatient services in accordance with the 2-midnight benchmark. Estimated LOS (days): 2 days is the estimated time the patient will need to remain in the hospital, assuming treatment plan goals are met and no additional complications. Post-Hospital Plan: Home Problem Qualifiers (1) Abdominal pain: Qualified Codes: R10.13 - Epigastric pain (2) Diabetes: Qualified Codes: E11.42 - Type 2 diabetes mellitus with diabetic polyneuropathy Manish Key MD July 05, 2017 16:44
[2017-07-05] MEDS ORDERED: PHYTONADIONE 10 MG/ML VIAL SQ ONE (17:45)
[2017-07-05] MEDS ORDERED: MORPHINE SULFATE 4 MG/ML INJ IV PUSH PRN (18:15)
[2017-07-05] MEDS ORDERED: GLUCAGON 1 MG/ML VIAL OTHER PRN (18:15)
[2017-07-05] MEDS ORDERED: DEXTROSE 50% IN WATER 50 ML VIAL(D50) IV PUSH PRN (18:15)
--- NOTE | 2017-07-05 18:21 | EKG ---
Date Performed: 07/05/2017 Time Performed: 10:23:47 PTAGE: 87 years EKG: Sinus rhythm WITH SINUS ARRHYTHMIA WITH FIRST DEGREE AV BLOCK MINIMAL ST DEPRESSION ABNORMAL ECG PREVIOUS TRACING : 06/12/2017 16.01 Since the previous tracing, no significant change noted DOCTOR: Rosalba Blakely Interpretating Date/Time 07/05/2017 18:19:44
[2017-07-05] MEDS: SODIUM CHLORIDE 0.9% FLUSH 10 ML FLUSH IV FLUSH SCH (21:00)
[2017-07-05] MEDS: INSULIN ASPART SUPPLEMENTAL SCALE SQ SCH (21:00)
[2017-07-05] MEDS: GABAPENTIN 300 MG CAP PO SCH (22:16)
[2017-07-06] VITALS (10 sets, daily range): BP systolic 103–175; BP diastolic 53–74; PULSE 61–82; RESP 16–20; TEMP 97.2–99; O2SAT 94–99
[2017-07-06] MEDS ORDERED: cloNIDine HCL 0.1 MG TAB PO PRN (01:00)
[2017-07-06] MEDS: HEPARIN SODIUM - SQ 10,000 UNITS/ML VIAL SQ SCH ×2 (04:00→15:46)
[2017-07-06] MEDS: SODIUM CHLOR 0.45% 1000 ML INJ 1,000 ML IV SCH (05:53)
[2017-07-06] MEDS: INSULIN ASPART SUPPLEMENTAL SCALE SQ SCH ×4 (08:00→20:41)
[2017-07-06 08:13] LABS: AUTOMATED NEUTROPHIL # 4.3 TH/MM3 (1.8-7.7); BASOPHIL # 0.1 TH/MM3 (0-0.2); BASOPHIL % 0.8 % (0.0-2.0); EOSINOPHIL # 0.1 TH/MM3 (0-0.4); HEMATOCRIT 38.6 % (35.0-46.0); HEMOGLOBIN 12.9 GM/DL (11.6-15.3); LYMPH % 31.2 % (9.0-44.0); LYMPHOCYTE # 2.4 TH/MM3 (1.0-4.8); MEAN CELL VOLUME 84.7 FL (80.0-100.0); MEAN CORPUSCULAR HEMOGLOBIN 28.3 PG (27.0-34.0); MEAN CORPUSCULAR HGB CONC 33.4 % (32.0-36.0); MEAN PLATELET VOLUME 8.7 FL (7.0-11.0); MONO % 8.9 % (0.0-8.0); MONOCYTE # 0.7 TH/MM3 (0-0.9); NEUT % 57.1 % (16.0-70.0); PLATELET COUNT 283 TH/MM3 (150-450); RED BLOOD COUNT 4.56 MIL/MM3 (4.00-5.30); RED CELL DISTRIBUTION WIDTH 15.2 % (11.6-17.2); WHITE BLOOD COUNT 7.6 TH/MM3 (4.0-11.0)
[2017-07-06 08:21] LABS: INTERNATIONAL NORMALIZED RATIO 1.1 RATIO; PROTHROMBIN TIME - PATIENT 10.7 SEC (9.8-11.6)
[2017-07-06 08:35] LABS: ALBUMIN 3.7 GM/DL (3.4-5.0); AST (GOT) 16 U/L (15-37); BICARBONATE 24.4 MEQ/L (21.0-32.0); BLOOD UREA NITROGEN 6 MG/DL (7-18); CALCIUM 8.7 MG/DL (8.5-10.1); CHLORIDE 101 MEQ/L (98-107); CREATININE 0.78 MG/DL (0.50-1.00); GLOMERULAR FILTRATION RATE 70 ML/MIN (>89); GLUCOSE,RANDOM 99 MG/DL (74-106); SODIUM (NA) 136 MEQ/L (136-145)
[2017-07-06 08:36] LABS: ALT (GPT) 17 U/L (10-53)
[2017-07-06 08:38] LABS: ALKALINE PHOSPHATASE 78 U/L (45-117); TOTAL BILIRUBIN ADULT 0.4 MG/DL (0.2-1.0); TOTAL PROTEIN 7.7 GM/DL (6.4-8.2)
[2017-07-06] MEDS: GABAPENTIN 300 MG CAP PO SCH ×2 (09:00→20:37)
[2017-07-06] MEDS: SODIUM CHLORIDE 0.9% FLUSH 10 ML FLUSH IV FLUSH SCH ×2 (09:00→20:37)
[2017-07-06] MEDS: LEVOTHYROXINE SODIUM 50 MCG TAB PO SCH (09:05)
[2017-07-06] MEDS: PANTOPRAZOLE SODIUM 40 MG VIAL IV PUSH SCH (09:11)
--- NOTE | 2017-07-06 09:27 | HHI.PR ---
Subjective Remarks Patient was seen later after she returned from imaging revision of celiac stent. Per family she is more confused than baseline and she has some problems with swallowing. Will do swallow eval. Also CT head reviewed at baseline. No n/v/d/c. Some abdominal pain. No overt bleeding. No fever or chills. Objective Vitals Vital Signs Date Time Temp Pulse Resp B/P (MAP) Pulse Ox O2 Delivery O2 Flow Rate FiO2 07/06/17 04:33 98.0 76 16 145/74 (97) 94 07/06/17 04:00 Room Air 07/06/17 00:00 Room Air 07/05/17 23:24 98.2 76 16 179/79 (112) 96 07/05/17 20:48 75 07/05/17 20:15 Room Air 07/05/17 19:35 98.5 77 17 167/88 (114) 95 07/05/17 19:28 07/05/17 17:57 85 18 177/74 (108) 96 Room Air 07/05/17 13:38 82 18 181/74 (109) 97 Room Air 07/05/17 10:34 85 17 171/81 (111) 98 Room Air 07/05/17 09:30 98 Room Air I/O 07/05/17 07/05/17 07/05/17 07/06/17 07/06/17 07/06/17 07:00 15:00 23:00 07:00 15:00 23:00 Intake Total 1240 ml Output Total 400 ml Balance 840 ml Intake Oral 240 ml IV Total 1000 ml Output Urine Total 400 ml # Bowel Movements 0 Result Diagram: 07/06/17 0544 07/06/17 0544 Imaging Last Impressions Abdomen/Pelvis CT 07/05/17 0850 Signed Impressions: Service Date/Time: Wednesday, July 05, 2017 10:46 - CONCLUSION: No acute disease. Jacky Page MD ADDENDUM: The study is compared to a CT angiogram dated December 08, 2015 which described a suspected occlusion of the celiac stent. The appearance compared to the previous study is similar. There is a widely patent superior mesenteric artery, and excellent opacification of the celiac artery distal to the stent via collateral reconstitution via the gastroduodenal artery. Jacky Page MD Objective Remarks GENERAL: This is a well-nourished, well-developed patient, in no apparent distress. CARDIOVASCULAR: Regular rate and rhythm without murmurs, gallops, or rubs. RESPIRATORY: Clear to auscultation. Breath sounds equal bilaterally. No wheezes , rales, or rhonchi. GASTROINTESTINAL: Abdomen soft, Tender to palpation diffusely, nondistended. No hepato-splenomegaly, or palpable masses. No guarding. MUSCULOSKELETAL: Extremities without clubbing, cyanosis, or edema. No joint tenderness, effusion, or edema noted. No calf tenderness. Negative Homans sign bilaterally. NEUROLOGICAL: Awake and alert. Cranial nerves II through XII intact. Motor and sensory grossly within normal limits. Five out of 5 muscle strength in all muscle groups. Normal speech. A/P Problem List: (1) Abdominal pain ICD Code: R10.9 - Unspecified abdominal pain Status: Acute (2) Diabetes ICD Code: E11.9 - Type 2 diabetes mellitus without complications Status: Chronic (3) Hypothyroidism ICD Code: E03.9 - Hypothyroidism, unspecified Status: Chronic Assessment and Plan Abdominal pain/nausea Epigastric pain nausea due to questionable gastroparesis. Possible occluded celiac stent. Admit the patient to the medical floor GI consulted -- s/p angiogram with revision of stent PPI Supportive care with IV fluids Diabetes mellitus type [address] on SSI with insulin NovoLog monitor Accu-Cheks for blood sugar control Hold metformin Hypothyroidism Continue levothyroxine. Diabetic neuropathy. Continue gabapentin. Hypertension. We will start on clonidine as needed. Continue to monitor vital signs. Coagulopathy with INR of 1/.9 on admission Unclear etiology, patient is not on coumadin. Received Vitamin K Monitor PT/INR. Consult hem/onc Dysphagia: Consult ST H/o CVA? patient with at baseline expressive aphasia. CT head 07/06 ordered and reviewed at baseline. Discussed Condition With pt., nurse Problem Qualifiers (1) Abdominal pain: Qualified Codes: R10.13 - Epigastric pain (2) Diabetes: Qualified Codes: E11.42 - Type 2 diabetes mellitus with diabetic polyneuropathy Agustina Castillo MD July 06, 2017 09:27
[2017-07-06] MEDS ORDERED: MIDAZOLAM HCL 5 MG/5 ML VIAL ONE (10:18)
[2017-07-06] MEDS ORDERED: fentaNYL CITRATE 250 MCG/5 ML AMP ONE (10:18)
[2017-07-06] MEDS ORDERED: VERAPAMIL HCL 5 MG/2 ML VIAL ONE (10:48)
--- NOTE | 2017-07-06 10:59 | PD.PN.STU ---
Subjective Medication Active Medications Acetaminophen (Tylenol) 650 mg Q4H PRN PO; Start 07/05/17 at 15:00 Clonidine (Catapres) 0.1 mg Q6H PRN PO; Start 07/06/17 at 01:00 Dextrose (D50w (Vial) Inj) 50 ml UNSCH PRN IV PUSH; Start 07/05/17 at 18:15 Fentanyl Citrate (fentaNYL INJ) 250 mcg STK-MED ONCE .ROUTE; Start 07/06/17 at 10:18; Stop 07/06/17 at 10:19; Status DC Gabapentin (Neurontin) 600 mg BID PO Last administered on 07/05/17at 22:16; Admin Dose 600 MG; Start 07/05/17 at 21:00 Glucagon (Glucagon Inj) 1 mg UNSCH PRN OTHER; Start 07/05/17 at 18:15 Heparin Sodium (Porcine) (Heparin Inj) 5,000 units Q12H SQ Last administered on 07/06/17at 04:00; Admin Dose 5,000 UNITS; Start 07/05/17 at 16:00 Insulin Aspart (NovoLOG SUPPLEMENTAL SCALE) 1 ACHS SLIDING SCALE SQ; Start at 21:00 Iohexol (Omnipaque 350 Inj) 80 ml STK-MED ONCE IVCONTRAST Last administered on at 11:01; Admin Dose 80 ML; Start 07/05/17 at 11:01; Stop 07/05/17 at 11: 02; Status DC Levothyroxine Sodium (Synthroid) 50 mcg DAILY PO Last administered on 07/06/17at 09:05; Admin Dose 50 MCG; Start 07/06/17 at 09:00 Lorazepam (Ativan Inj) 1 mg ONCE ONCE IV PUSH Last administered on 07/05/17at 13 :36; Admin Dose 1 MG; Start 07/05/17 at 13:45; Stop 07/05/17 at 13:46; Status DC Midazolam HCl (Versed Inj) 5 mg STK-MED ONCE .ROUTE; Start 07/06/17 at 10:18; Stop 07/06/17 at 10:19; Status DC Morphine Sulfate (Morphine Inj) 2 mg Q3H PRN IV PUSH Last administered on at 20:19; Admin Dose 2 MG; Start 07/05/17 at 18:15 Naloxone HCl (Narcan Inj) 0.4 mg UNSCH PRN IV PUSH; Start 07/05/17 at 15:00 Ondansetron HCl (Zofran Odt) 4 mg Q6H PRN PO; Start 07/05/17 at 16:00 Oxycodone HCl (Roxicodone) 5 mg Q4H PRN PO; Start 07/05/17 at 18:15 Oxycodone HCl (Roxicodone) 10 mg Q4H PRN PO Last administered on 07/06/17at 09: 05; Admin Dose 10 MG; Start 07/05/17 at 18:15 Pantoprazole Sodium (Protonix Inj) 40 mg DAILY IV PUSH Last administered on 07/06at 09:11; Admin Dose 40 MG; Start 07/05/17 at 13:45 Phytonadione (Vitamin K Inj) 10 mg ONCE ONCE SQ Last administered on 07/05/17at 22:16; Admin Dose 10 MG; Start 07/05/17 at 17:45; Stop 07/05/17 at 20:15; Status DC Sodium Chloride 1,000 ml @ 75 mls/hr [id number] IV Last administered on 07/06/17at 05:53; Admin Dose 75 MLS/HR; Start 07/05/17 at 14:57 Sodium Chloride (NS Flush) 2 ml BID IV FLUSH; Start 07/05/17 at 21:00 Sodium Chloride (NS Flush) 2 ml UNSCH PRN IV FLUSH; Start 07/05/17 at 15:00 Allergies: Coded Allergies: ciprofloxacin (Unverified Allergy, Unknown, 10/05/16) hydromorphone (Unverified Allergy, Unknown, 10/05/16) levofloxacin (Unverified Allergy, Unknown, 10/05/16) metronidazole (Unverified Allergy, Unknown, 10/05/16) History of Present Illness 87-year-old female presented to ED last night complaining of epigastric pain and nausea which began on Tuesday night. She is nonverbal and has history of speech and swallowing difficulties beginning ~5 years ago. Patient's daughter is at bedside and supplying most information due to patient's dysarthria. Daughter says she is at baseline neurologically, but has been having headaches. She denies history of CVA and they are unsure of the reason for her change in speech. Patient has history of a celiac stent placed in 2003 then revised in 2013. She has been experiencing GI symptoms intermittently over the past few months. She has constant pain that is epigastric and rates it 8/10. Unable to obtain information on quality of pain due to dysarthria. She denies vomiting, change in bowels, fevers, chills. She reports a headache that began Christian night and rates it 12/10. She reports intermittent headaches for the past 1 month. Daughter says she fell and hit her head on 06/12/17. She was taken to ED, where hemorrhage was ruled out via head CT. She has history of migraine headaches but says her recent headaches are more severe and more frequent. Reports photosensitivity and pain with EOM. She is concerned about elevated blood pressure. Past Medical History Anxiety Hypothyroidism GERD/IBS Rheumatoid arthritis Fibromyalgia Chronic dysarthria, denies CVA Hyperlipidemia Diabetes mellitus Peripheral neuropathy COPD Dysphagia Gastroparesis Esophageal stricture Carpal tunnel syndrome Hiatal hernia PUD Hx ischemic colitis Hx PUD Depression Past Surgical History Cholecystectomy PCI C4-7 fusion Spinal stimulator placement and removal Hysterectomy Celiac stent placement, by radiology Cataract surgery Appendectomy EGD with botox injections Colonoscopy Exploratory laparotomy Umbilical Hernia repair Family History prostate cancer DM heart disease Social History former smoker no EtOH Objective Vitals Vital Signs Date Time Temp Pulse Resp B/P (MAP) Pulse Ox O2 Delivery O2 Flow Rate FiO2 07/06/17 08:11 97.9 82 17 134/68 (90) 97 07/06/17 04:33 98.0 76 16 145/74 (97) 94 07/06/17 04:00 Room Air 07/06/17 00:00 Room Air 07/05/17 23:24 98.2 76 16 179/79 (112) 96 07/05/17 20:48 75 07/05/17 20:15 Room Air 07/05/17 19:35 98.5 77 17 167/88 (114) 95 07/05/17 19:28 07/05/17 17:57 85 18 177/74 (108) 96 Room Air 07/05/17 13:38 82 18 181/74 (109) 97 Room Air I/O 07/05/17 07/05/17 07/05/17 07/06/17 07/06/17 07/06/17 06:59 14:59 22:59 06:59 14:59 22:59 Intake Total 1240 ml Output Total 400 ml Balance 840 ml Intake Oral 240 ml IV Total 1000 ml Output Urine Total 400 ml # Bowel Movements 0 Result Diagram: 07/06/1744 07/06/1744 Allergies Coded Allergies: ciprofloxacin (Unverified Allergy, Unknown, 10/05/16) hydromorphone (Unverified Allergy, Unknown, 10/05/16) levofloxacin (Unverified Allergy, Unknown, 10/05/16) metronidazole (Unverified Allergy, Unknown, 10/05/16) Constitutional General appearance: comfortable Nutritional status: overweight Eyes Eyelids: Bilateral: Normal Sclera: Bilateral: Normal ENMT Oropharynx: Mouth: Normal Pharynx: Throat: Normal Respiratory Respiratory effort: normal Chest appearance: Normal Ausculation: Bilateral: Normal Cardiovascular Rhythm: regular Heart sounds: NORMAL: S1, S2 Gastrointestinal Abdomen description: Normal Bowel sounds: LUQ: Normal, LLQ: Normal, RUQ: Normal, RLQ: Normal Abdominal bruits: Left: None, Right: None, Central: None Abdominal palpation: Abdomen: Soft Epigastric: tender to palpation Psychiatric Orientation: other (unable to assess based on patient's dysarthria) A/P Assessment and Plan 1. Abdominal Pain/Nausea: Epigastric pain for the past few months, worsened for the past few days Questionable gastroparesis vs. occluded celiac stent (placed in 2003, last revised in 2013) vs. hx of gastritis or esophagitis Dr. Siegel performed angiogram with stent revision today, we will continue to monitor Rx pantroprazole and supportive care with IV fluids Pt was given 10mg IV oxycodone, will continue Rx q4hrs prn for pain 2. Headache: Pt was given 10mg IV oxycodone but no improvement in symptoms Worsening since recent fall on 06/12 - workup in ED was negative at that time Order head CT based on fall history and coagulopathy of unknown origin CT performed 06/12 showed no acute pathology but diffuse atrophy with periventricular white matter changes consistent with age 3. DM type 2: Pt is on metformin at home, we will hold home meds and place her on SSI with NovoLog Monitor Bg with Accu-Cheks 4. Hypothyroidism: Continue levothyroxine 5. Diabetic neuropathy: Continue gabapentin. 6. Hypertension: We will start on clonidine as needed and continue to monitor vital signs. 7. Coagulopathy: INR 1.9 on admission. Unclear etiology, patient is not on coumadin. Pt was given Vitamin K Will continue to monitor PT/INR Consult heme/ onc 8. Dysarthria and dysphagia Pt's daughter says this problem began 5 years ago, they are unsure of the reason for speech difficulty Head CT on 06/12 showed diffuse atrophy with periventricular white matter changes but no focal findings Ordered swallow evaluation Mehnaz Cody M3 July 06, 2017 10:59
[2017-07-06] MEDS ORDERED: NITROGLYCERIN 50 MG/10 ML VIAL IV ONE (11:00)
[2017-07-06] MEDS ORDERED: IODIXANOL 320 MG/ML 50 ML VIAL (for RAD SPEC) I-ARTERIAL ONE (13:43)
--- NOTE | 2017-07-06 14:24 | RADRPT ---
EXAM DATE/TIME: 07/06/2017 10:17 [facility] COMPARISON: No previous studies available for comparison. INDICATIONS : 87 year-old female with history of celiac stent placement in 2004 for abdominal pain. Patient has sin ce had a revision at outside institution originally thought to be in 2016. Patient presents with acut e abdominal pain and CT examination demonstrating celiac stent stenosis or occlusion. Therefore, coleman ography with possible intervention is requested. MEDICAL HISTORY : Anxiety Hypothyroidism GERD/IBS Fibromyalgia Chronic dysarthria, denies CVA Hyperlipidemia DM Peripheral neuropathy COPD Dysphagia Gastroparesis Esophageal stricture Carpal tunnel syndrome Hiatal hernia PUD Ischemic colitis Depression SURGICAL HISTORY : Cholecystectomy PCI C4-7 fusion Spinal stimulator placement and removal Celiac stent placement Cataract surgery Appendectomy EGD, with botox injections Colonoscopy Exploratory laparotomy Umbilical hernia repair ENCOUNTER: Initial ACUITY: 1 day PAIN SCORE: 0/10 LOCATION: N/A FLUORO TIME: 42.2 minutes IMAGE SERIES: 8 ACCESS SITE: Right Radial artery SEDATION TIME: 90 minutes CONTRAST: 1.) 110 cc Visipaque (iodixanol) MEDICATION(S): 1.) 2 mg midazolam (Versed) IV 2.) 100 mcg fentanyl (Sublimaze) IV 3.) 3000 units Heparin IV 4.) 400 mcg Nitroglycerin IART 5.) 4 mg Verapamil IART PROCEDURE : 1. Ultrasound-guided puncture of left radial artery. 2. Conscious sedation with continuous EKG and Oximetry monitoring. 3. Lateral tunnel aortogram 4. Extended recanalization attempt of the occluded celiac artery 5. Selective catheter placement in the replaced right hepatic artery arising from the SMA with selec tive angiography The risks, benefits and alternatives to the procedure were explained and verbal and written consent w as obtained. The site was prepped in sterile fashion. Full sterile technique was used, including ca p, mask, sterile gloves and gown and a large sterile sheet. Hand hygiene and 2% chlorhexidine and/or betadine/alcohol prep was utilized per protocol for cutaneous antisepsis. Sterile gel and sterile p robe cover were utilized for ultrasound guidance. The skin and subcutaneous tissues were infiltrated with local anesthetic solution. With ultrasound and fluoroscopic guidance the selected artery was punctured and a vascular sheath was placed. 4 Tristanian flush catheter was then advanced into the proximal aorta a pelvic aortogram was per formed in the lateral projection. This demonstrates occlusion of the celiac stent with patent SMA. Ne xt, catheter was exchanged for a 4 Tristanian Bledsoe catheter and numerous attempts were made to trave rse the occluded celiac stent without success. Multiple additional wire and catheter combinations wer e utilized also without success. Next, abdominal aortogram was performed in AP projection. This demon strated opacification of the celiac artery retrograde from the SMA the apparent replaced right hepati c artery. Therefore, the catheter was advanced into the SMA and subsequently into the apparent replac ed hepatic artery and angiography was performed confirming replaced right hepatic artery with retrogr kaitlin flow to the celiac artery via collateral from an apparent intermediate hepatic branch. Therefore, the procedure was terminated at this time. Left radial sheath was removed and hemostasis obtained wi th a TR band compression device. The patient tolerated the procedure well and there were no complicat ions. Conscious sedation was performed with the prescribed dosages and duration as above in the presence of an independent trained radiology nurse to assist in the monitoring of the patient. EKG and oximetry remained stable throughout the procedure. CONCLUSION: 1. Occluded celiac stent. Extended attempt at recanalizing the occluded stent was unsuccessful. 2. Widely patent SMA with replaced right hepatic artery from the SMA. There is retrograde opacificati on of the celiac artery through hepatic collaterals. Note: Stent has been occluded since CTA examination of 12/08/2015. Patient was thought to have a stent revi naheed since then had an outside institution. However, on further investigation patient's last celiac r evision was apparently in 2013. Therefore, the occlusion is chronic and an unlikely source for patien t's new abdominal pain. Jesus Cui MD on July 06, 2017 at 14:12 Board Certified Radiologist. This report was verified electronically.
--- NOTE | 2017-07-06 16:05 | RADRPT ---
EXAM DATE/TIME: 07/06/2017 15:00 [facility] COMPARISON: CT BRAIN W/O CONTRAST, June 12, 2017, 16:26. INDICATIONS : Cephalgia RADIATION DOSE: 47.83 CTDIvol (mGy) MEDICAL HISTORY : Cardiovascular disease. Rheumatoid arthritis. Fibromyalgia, Diabetes SURGICAL HISTORY : Tubal ligation. Hysterectomy. ENCOUNTER: Initial ACUITY: 1 day PAIN SCALE: 4/10 LOCATION: cranial TECHNIQUE: Multiple contiguous axial images were obtained of the head. Using automated exposure control and adj ustment of the mA and/or kV according to patient size, radiation dose was kept as low as reasonably a chievable to obtain optimal diagnostic quality images. DICOM format image data is available electro nically for review and comparison. FINDINGS: CEREBRUM: The ventricles are normal for age. No evidence of midline shift, mass lesion, hemorrhage or acute in farction. No extra-axial fluid collections are seen. POSTERIOR FOSSA: The cerebellum and brainstem are intact. The 4th ventricle is midline. The cerebellopontine angle i s unremarkable. EXTRACRANIAL: The visualized portion of the orbits is intact. SKULL: The calvaria is intact. No evidence of skull fracture. CONCLUSION: Negative for an acute process. Umesh Schafer MD FACR on July 06, 2017 at 16:01 Board Certified Radiologist. This report was verified electronically.
[2017-07-06] MEDS: ONDANSETRON ODT 4 MG TAB PO PRN (17:13)
--- NOTE | 2017-07-06 19:17 | MB ---
cc: Carli Daly MD, Ruby Anne E MD DATE: 07/06/2017 REFERRING PHYSICIAN: Dr. Wade Lawrence. CHIEF COMPLAINT: Dr. Castillo requests a consultation for Mrs. Padilla regarding coagulopathy. HISTORY OF PRESENT ILLNESS: Mrs. Padilla is an 87-year-old woman with multiple medical problems including anxiety, hypothyroidism, rheumatoid arthritis, fibromyalgia, chronic dysarthria, hyperlipidemia, diabetes, peripheral neuropathy, COPD, gastroparesis, hiatal hernia, depression. She has a history of ischemic colitis. She has had a stent placed in the celiac artery. Superior mesenteric artery is widely patent. There is retrograde opacification of celiac artery through the hepatic collaterals. She comes in with a complaint of abdominal pain. She is well known to the gastroenterology service. Celiac hepatic angiogram showed occluded celiac stent. Further evaluation showed that the last celiac revision was in 2013. The occlusion is chronic. This was not felt to be the cause of her abdominal pain. On admission, her PT, PTT are prolonged. She was given a course of vitamin K. Followup PT, PTT on 07/06/2017 was normal. Hematology/Oncology is consulted for the coagulopathy and the unusual clot in the celiac artery. Mrs. Padilla is able to convey some history. She has difficulty talking. The communication was slow, although she seems to be aware. She complains mainly of the abdominal pain in the same general area. She has nausea. She denies any vomiting. She denies any other pain. No shortness of breath. PAST MEDICAL HISTORY: As described above. PAST SURGICAL HISTORY: Cholecystectomy, , C4-7 fusion, spinal stimulator placement, hysterectomy, celiac stent placement, cataract surgery, appendectomy, EGD with Botox, colonoscopy, umbilical hernia repair, exploratory laparotomy. FAMILY HISTORY: Significant for family history of prostate cancer, diabetes, and heart disease. SOCIAL HISTORY: She denies any tobacco, alcohol or illicit drug use. ALLERGIES: CIPRO, HYDROMORPHONE, LEVAQUIN, METRONIDAZOLE. CURRENT MEDICATIONS: 1. Synthroid. 2. Catapres. 3. Neurontin. 4. Oxycodone. 5. Morphine p.r.n. 6. Zofran p.r.n. 7. Protonix. PHYSICAL EXAMINATION: VITAL SIGNS: Temperature 98.8, heart rate 67, respiratory rate 16, blood pressure 130/53, saturation 99%. GENERAL: Mrs. Padilla is an elderly well-developed woman. She is lying in bed pending IV site placement by vascular team. HEENT: Pupils are small and reactive, but there is bilateral arcus senilis. NECK: Supple. LUNGS: Clear anteriorly. HEART: Reveals normal rate and rhythm. ABDOMEN: Soft. Large tenderness in the upper mid abdominal area. EXTREMITIES: Lower extremity with good pulses. NEUROLOGIC: She moves all 4 extremities. LABORATORY DATA: Significant for normal repeat coagulation profile. ASSESSMENT AND PLAN: Mrs. Padilla is an 87-year-old woman with multiple medical problems described above. 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 She comes in with abdominal pain. She has no evidence of anemia. Her renal function is normal. Gastroenterology has been consulted to evaluate the etiology of pain. Hematology is consulted for the coagulopathy, which is corrected with vitamin K. I suspect that the coagulopathy is due to a K deficiency. She has had nausea and decreased p.o. intake. We discussed obtaining antiphospholipid antibody panel. Lupus anticoagulant cannot be run as the PTT is not prolonged. We will evaluate potential cause or etiology of the celiac artery occlusion. It is suspected to be from atherosclerotic disease. There seems to be good collaterals at this point. We will continue symptomatic management. She may benefit from palliative care consultation to alleviate her chronic symptoms. She had been previously on antiplatelet therapy, aspirin and Plavix. We will continue this for now. MD SHELBY Russ/ , 06:50 PM , 07:16 PM
[2017-07-07] VITALS (9 sets, daily range): BP systolic 121–165; BP diastolic 59–91; PULSE 67–95; RESP 16–18; TEMP 97.8–100.1; O2SAT 92–96
[2017-07-07] MEDS: HEPARIN SODIUM - SQ 10,000 UNITS/ML VIAL SQ SCH ×2 (04:00→16:00)
[2017-07-07] MEDS: SODIUM CHLOR 0.45% 1000 ML INJ 1,000 ML IV SCH ×2 (04:21→21:52)
[2017-07-07] MEDS: INSULIN ASPART SUPPLEMENTAL SCALE SQ SCH ×4 (08:00→21:00)
--- NOTE | 2017-07-07 08:17 | HHI.PR ---
Subjective Remarks Patient EGD. She is eating and swallowing better medications with applesauce. Appears to not acute distress at this time. No nausea or vomiting. No abdominal pain. Answering questions with yes and no, at baseline Objective Vitals Vital Signs Date Time Temp Pulse Resp B/P (MAP) Pulse Ox O2 Delivery O2 Flow Rate FiO2 07/07/17 04:00 97.8 74 18 148/68 (94) 94 07/07/17 03:55 69 07/07/17 00:15 67 07/06/17 23:18 98.5 72 20 103/57 (72) 94 07/06/17 20:07 72 07/06/17 20:07 99.0 80 18 175/72 (106) 97 07/06/17 20:00 Room Air 07/06/17 16:00 76 07/06/17 13:50 98.8 67 16 130/53 (78) 99 07/06/17 13:20 98.8 67 16 130/53 (78) 99 07/06/17 13:05 98.8 67 16 130/53 (78) 99 07/06/17 12:50 98.8 67 16 130/53 (78) 99 07/06/17 12:50 97.2 67 18 130/53 (78) 98 I/O 07/06/17 07/06/17 07/06/17 07/07/17 07/07/17 07/07/17 07:00 15:00 23:00 07:00 15:00 23:00 Intake Total 1240 ml 360 ml 1240 ml Output Total 400 ml 400 ml Balance 840 ml 360 ml 840 ml Intake Oral 240 ml 360 ml 240 ml IV Total 1000 ml 1000 ml Output Urine Total 400 ml 400 ml # Voids 2 2 # Bowel Movements 0 0 Result Diagram: 07/06/17 0544 07/06/17 0544 Imaging Last Impressions Celiac/Hepatic Arteriogram 07/06/17 1346 Signed Impressions: Service Date/Time: Thursday, July 06, 2017 10:17 - CONCLUSION: 1. Occluded celiac stent. Extended attempt at recanalizing the occluded stent was unsuccessful. 2. Widely patent SMA with replaced right hepatic artery from the SMA. There is retrograde opacification of the celiac artery through hepatic collaterals. Note: Stent has been occluded since CTA examination of 12/08/2015. Patient was thought to have a stent revision since then had an outside institution. However, on further investigation patient's last celiac revision was apparently in 2013. 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 Jesus Cui MD Head CT 07/06/17 0000 Signed Impressions: Service Date/Time: Thursday, July 06, 2017 15:00 - CONCLUSION: Negative for an acute process. Umesh Schafer MD FACR Abdomen/Pelvis CT 07/05/17 0850 Signed Impressions: Service Date/Time: Wednesday, July 05, 2017 10:46 - CONCLUSION: No acute disease. Jacky Page MD ADDENDUM: The study is compared to a CT angiogram dated December 08, 2015 which described a suspected occlusion of the celiac stent. The appearance compared to the previous study is similar. There is a widely patent superior mesenteric artery, and excellent opacification of the celiac artery distal to the stent via collateral reconstitution via the gastroduodenal artery. Jacky Page MD Objective Remarks GENERAL: This is a well-nourished, well-developed patient, in no apparent distress. CARDIOVASCULAR: Regular rate and rhythm without murmurs, gallops, or rubs. RESPIRATORY: Clear to auscultation. Breath sounds equal bilaterally. No wheezes , rales, or rhonchi. GASTROINTESTINAL: Abdomen soft, Tender to palpation diffusely, nondistended. No hepato-splenomegaly, or palpable masses. No guarding. MUSCULOSKELETAL: Extremities without clubbing, cyanosis, or edema. No joint tenderness, effusion, or edema noted. No calf tenderness. Negative Homans sign bilaterally. NEUROLOGICAL: Awake and alert. Cranial nerves II through XII intact. Motor and sensory grossly within normal limits. Five out of 5 muscle strength in all muscle groups. Normal speech. A/P Problem List: (1) Abdominal pain ICD Code: R10.9 - Unspecified abdominal pain Status: Acute (2) Diabetes ICD Code: E11.9 - Type 2 diabetes mellitus without complications Status: Chronic (3) Hypothyroidism ICD Code: E03.9 - Hypothyroidism, unspecified Status: Chronic Assessment and Plan Abdominal pain/nausea Epigastric pain nausea due to questionable gastroparesis. occluded celiac stent. Admit the patient to the medical floor GI consulted -- s/p angiogram with revision of stent patient with occluded celiac stent PPI Supportive care with IV fluids EGD 07/07/17 Swallow evaluation Diabetes mellitus type [address] on SSI with insulin NovoLog monitor Accu-Cheks for blood sugar control Hold metformin Hypothyroidism Continue levothyroxine. Diabetic neuropathy. Continue gabapentin. Hypertension. We will start on clonidine as needed. Continue to monitor vital signs. Coagulopathy with INR of 1.9 on admission. Unclear etiology, patient is not on coumadin. Received Vitamin K Monitor PT/INR. Consult hem/onc , appreciate recommendations. Continue ASA and Plavix Dysphagia: Consult ST H/o CVA? patient with at baseline expressive aphasia. CT head 07/06 ordered and reviewed at baseline. Discussed Condition With pt., nurse Problem Qualifiers (1) Abdominal pain: Qualified Codes: R10.13 - Epigastric pain (2) Diabetes: Qualified Codes: E11.42 - Type 2 diabetes mellitus with diabetic polyneuropathy Agustina Castillo MD July 07, 2017 08:17
--- NOTE | 2017-07-07 09:05 | PD.PN.STU ---
Subjective Remarks 87-year-old nonverbal female, patient's daughter is at bedside to help supply information. Epigastric pain has worsened since yesterday and pt rates it 9/10. Pain comes and goes, and radiates from the midepigastrium around either side of her ribs. Pain medication is helping some. No vomiting. She is currently NPO as she is waiting for EGD to be performed today. Headache has improved since yesterday with administration of pain meds. Daughter says she is at baseline neurologically, but has been having recent headaches after a fall on 06/12/17. CT of the head performed yesterday showed no acute abnormalities. She is having trouble sleeping, which is a chronic problem. Would like medications to help if possible. Past Medical History Anxiety Hypothyroidism GERD/IBS Rheumatoid arthritis Fibromyalgia Chronic dysarthria, denies CVA Hyperlipidemia Diabetes mellitus Peripheral neuropathy COPD Dysphagia Gastroparesis Esophageal stricture Carpal tunnel syndrome Hiatal hernia PUD Hx ischemic colitis Hx PUD Depression Past Surgical History Cholecystectomy PCI C4-7 fusion Spinal stimulator placement and removal Hysterectomy Celiac stent placement, by radiology Cataract surgery Appendectomy EGD with botox injections Colonoscopy Exploratory laparotomy Umbilical Hernia repair Family History prostate cancer DM heart disease Social History former smoker no EtOH Objective Vitals Vital Signs Date Time Temp Pulse Resp B/P (MAP) Pulse Ox O2 Delivery O2 Flow Rate FiO2 07/07/17 04:00 97.8 74 18 148/68 (94) 94 07/07/17 03:55 69 07/07/17 00:15 67 07/06/17 23:18 98.5 72 20 103/57 (72) 94 07/06/17 20:07 72 07/06/17 20:07 99.0 80 18 175/72 (106) 97 07/06/17 20:00 Room Air 07/06/17 16:00 76 07/06/17 13:50 98.8 67 16 130/53 (78) 99 07/06/17 13:20 98.8 67 16 130/53 (78) 99 07/06/17 13:05 98.8 67 16 130/53 (78) 99 07/06/17 12:50 98.8 67 16 130/53 (78) 99 07/06/17 12:50 97.2 67 18 130/53 (78) 98 I/O 07/06/17 07/06/17 07/06/17 07/07/17 07/07/17 07/07/17 07:00 15:00 23:00 07:00 15:00 23:00 Intake Total 1240 ml 360 ml 1240 ml Output Total 400 ml 400 ml Balance 840 ml 360 ml 840 ml Intake Oral 240 ml 360 ml 240 ml IV Total 1000 ml 1000 ml Output Urine Total 400 ml 400 ml # Voids 2 2 # Bowel Movements 0 0 EXAM: GENERAL: Well-developed well-nourished female in no apparent distress. CARDIOVASCULAR: Regular rate and rhythm without murmurs, gallops, or rubs. RESPIRATORY: Clear to auscultation. Breath sounds equal bilaterally. No wheezes , rales, or rhonchi. GASTROINTESTINAL: Abdomen soft, nondistended. Tender to palpation diffusely, most severe over epigastrium . No hepato-splenomegaly, or palpable masses. No guarding. MUSCULOSKELETAL: Extremities without clubbing, cyanosis, or edema. No joint tenderness, effusion, or edema noted. NEUROLOGICAL: Awake and alert. Cranial nerves II-XII grossly intact. Motor and sensory grossly within normal limits. 5/5 muscle strength in all muscle groups. Dysarthria limits conversation. Result Diagram: 07/06/17 0544 07/06/17 0544 A/P Assessment and Plan 1. Abdominal Pain/Nausea: Epigastric pain for the past few months, worsened since yesterday Questionable gastroparesis vs. occluded celiac stent (placed in 2003, last revised in 2013) vs. hx of gastritis or esophagitis Pt is currently NPO and EGD will be performed today Pt is s/p attempted celiac stent revision with Dr. Siegel yesterday. The stent was found to be chronically occluded but there is good collateral flow and the occlusion is not believed to be the source of recent abdominal pain. Continue Rx pantroprazole and supportive care with IV fluids Pt was given 10mg IV oxycodone, will continue Rx q4hrs prn for pain 2. Headache: Improved since yesterday CT head performed 07/06/17 showed no acute processes Will continue oxycodone for multiple sources of pain 3. DM type 2: Pt is on metformin at home, we will hold home meds and place her on SSI with NovoLog Monitor Bg with Accu-Cheks 4. Hypothyroidism: Continue levothyroxine 5. Diabetic neuropathy: Continue gabapentin. 6. Hypertension: We will start on clonidine as needed and continue to monitor vital signs. 7. Coagulopathy: INR 1.9 on admission, normalized after pt was given Vitamin K Dr. Garcia consulted and ordered antiphospholipid Ab panel. Results are pending Will continue to monitor PT/INR 8. Dysarthria and dysphagia Pt's daughter says this problem began 5 years ago, they are unsure of the reason for speech difficulty Head CT on 07/06/17 showed no acute processes Ordered swallow evaluation, will be done today Mehnaz Cody July 07, 2017 09:05
[2017-07-07] MEDS: SODIUM CHLORIDE 0.9% FLUSH 10 ML FLUSH IV FLUSH SCH ×2 (09:21→21:00)
--- NOTE | 2017-07-07 10:53 | GIPROC ---
[facility] [address] [facility]. [facility], [address] EGD WITH DILATION PROCEDURE REPORT EXAM DATE: 07/07/2017 PATIENT NAME: Marybeth Padilla MR#: [id number] BIRTHDATE: 1930 ATTENDING: Sonia Siegel MD ORDER #: [id number] ASSET RECOVERY SPECIALIST: Marcy Osborne and Jesus Handley STATUS: inpatient INDICATIONS: The patient is a 87 yr old female here for an EGD with dilation due to abdominal pain, dysphagia PROCEDURE PERFORMED: EGD w/ dilation of esophagus via guidewire EGD w/ biopsy MEDICATIONS: None and Per Anesthesia. TOPICAL ANESTHETIC: none CONSENT: The patient understands the risks and benefits of the procedure and understands that these risks include, but are not limited to: sedation, allergic reaction, infection, perforation and/or bleeding. Alternative means of evaluation and treatment include, among others: physical exam, x-rays, and/or surgical intervention. The patient elects to proceed with this endoscopic procedure. medical equipment was checked for proper function. Hand hygiene and appropriate measures for infection prevention was taken. After the risks, benefits and alternatives of the procedure were thoroughly explained, Informed consent was verified, confirmed and timeout was successfully executed by the treatment team. The patient was anesthetized with topical anesthesia and the Pentax [id number] endoscope was introduced through the mouth and advanced to the second portion of the duodenum. The instrument was slowly withdrawn as the mucosa was fully examined. Gastritis antrum-biopsy duodenum normal esophagitis distal esophagus/spasm-biopsy. Dilation was performed at gastroesophageal junction. DILATOR: SIZE(S): RESISTANCE: HEME: APPEARANCE: Dilator: Savary over guidewire Size(s): 17 COMMENT: Retroflexed views revealed a hiatal hernia ADVERSE EVENTS: There were no complications. IMPRESSIONS: 1. Gastritis antrum-biopsy duodenum normal esophagitis distal esophagus/spasm-biopsy 2. Retroflexed views revealed a hiatal hernia RECOMMENDATIONS: 1. Await biopsy results. Biopsy results will not be ready for 7-10 days. If you don't hear from us in two weeks, call our office for biopsy results. 2. Anti-reflux regimen 3. Continue PPI 4. Avoid NSAIDS 5. Carafte liquid if not better consider vascular surgery eval, colonoscopy REPEAT EXAM: Return 1 year EGD with dilatation Sonia Siegel MD eSigned: Sonia Siegel MD 07/07/2017 10:52 AM cc: PATIENT NAME: Marybeth Padilla MR#: [id number]
[2017-07-07] MEDS ORDERED: *RESP: ALBUTEROL 2.5 MG/3 ML NEB (PRN) PERIprocedural Use ONLY NEB ONE (10:55)
[2017-07-07] MEDS ORDERED: DO NOT ADM ANY ANTICOAGULANT DRUGS PRN (11:45)
[2017-07-07] MEDS ORDERED: PROPOFOL 200 MG/20 ML AMP IV ONE (12:00)
[2017-07-07] MEDS ORDERED: SUCCINYLCHOLINE CHLORIDE 100 MG/5 ML SYRINGE IV PUSH ONE (12:00)
[2017-07-07] MEDS ORDERED: LIDOCAINE HCL 1% PF 5 ML SYRINGE OTHER ONE (12:00)
[2017-07-07] MEDS: SUCRALFATE 1 GM/10 ML CUP PO SCH ×3 (13:34→21:56)
[2017-07-07] MEDS: LEVOTHYROXINE SODIUM 50 MCG TAB PO SCH (13:34)
[2017-07-07] MEDS: PANTOPRAZOLE SODIUM 40 MG VIAL IV PUSH SCH (13:34)
[2017-07-07] MEDS: GABAPENTIN 300 MG CAP PO SCH ×2 (13:37→21:55)
--- NOTE | 2017-07-07 13:55 | PD.ONC.PN ---
Subjective Subjective Remarks Tmax 100.8 overnight. Patient resting in bed. Patient hungry and asking for spoon to eat her applesauce. Objective Data Date Time Temp Pulse Resp B/P (MAP) Pulse Ox O2 Delivery O2 Flow Rate FiO2 07/07/17 11:54 100.8 87 13 120/60 (80) 96 Nasal Cannula 2 07/07/17 11:45 91 19 118/56 (76) 95 Nasal Cannula 2 07/07/17 11:30 88 17 132/63 (86) 95 Nasal Cannula 2 07/07/17 11:15 94 26 131/61 (84) 96 Nasal Cannula 2 07/07/17 11:00 97 30 144/68 (93) 95 Nasal Cannula 3 07/07/17 10:52 98.7 103 26 132/67 (88) 94 Nasal Cannula 5 07/07/17 08:00 98.7 80 16 122/62 (82) 92 07/07/17 04:00 97.8 74 18 148/68 (94) 94 07/07/17 03:55 69 07/07/17 00:15 67 07/06/17 23:18 98.5 72 20 103/57 (72) 94 07/06/17 20:07 72 07/06/17 20:07 99.0 80 18 175/72 (106) 97 07/06/17 20:00 Room Air 07/06/17 16:00 76 07/06/17 13:50 98.8 67 16 130/53 (78) 99 07/07/17 07/07/17 07/07/17 07:00 15:00 23:00 Intake Total 1240 ml 100 ml Output Total 400 ml Balance 840 ml 100 ml Result Diagram: 07/06/17 0544 07/06/17 0544 Laboratory Results Laboratory Tests Test 07/07/17 05:30 Imaging Studies Last 24 hours Impressions Celiac/Hepatic Arteriogram 07/06/17 1346 Signed Impressions: Service Date/Time: Thursday, July 06, 2017 10:17 - CONCLUSION: 1. Occluded celiac stent. Extended attempt at recanalizing the occluded stent was unsuccessful. 2. Widely patent SMA with replaced right hepatic artery from the SMA. There is retrograde opacification of the celiac artery through hepatic collaterals. Note: Stent has been occluded since CTA examination of 12/08/2015. Patient was thought to have a stent revision since then had an outside institution. However, on further investigation patient's last celiac revision was apparently in 2013. 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 Jesus Cui MD Administered Medications Medications (Trade) Dose Ordered Sig/Christian Route PRN Reason Start Time Stop Time Status Last Admin Dose Admin Pantoprazole Sodium (Protonix Inj) 40 mg DAILY IV PUSH 07/05/17 13:45 07/07/17 13:34 Sodium Chloride 1,000 ml @ 75 mls/hr [id number] IV 07/05/17 14:57 07/07/17 04:21 Sodium Chloride (NS Flush) 2 ml BID IV FLUSH 07/05/17 21:00 07/07/17 09:21 Ondansetron HCl (Zofran Odt) 4 mg Q6H PRN PO NAUSEA OR VOMITING 07/05/17 16:00 07/06/17 17:13 Heparin Sodium (Porcine) (Heparin Inj) 5,000 units Q12H SQ 07/05/17 16:00 07/07/17 04:00 Gabapentin (Neurontin) 600 mg BID PO 07/05/17 21:00 07/07/17 13:37 Levothyroxine Sodium (Synthroid) 50 mcg DAILY PO 07/06/17 09:00 07/07/17 13:34 Oxycodone HCl (Roxicodone) 10 mg Q4H PRN PO PAIN SCALE 5 TO 10 07/05/17 18:15 07/07/17 09:21 Morphine Sulfate (Morphine Inj) 2 mg Q3H PRN IV PUSH BREAKTHROUGH PAIN 07/05/17 18:15 07/05/17 20:19 Clonidine (Catapres) 0.1 mg Q6H PRN PO SYS BP GREATER THAN 160 MMHG 07/06/17 01:00 07/06/17 20:37 Sucralfate (Carafate Liq) 1 gm ACHS PO 07/07/17 12:00 07/07/17 13:34 Objective Remarks GENERAL: pleasant elderly female, sitting up in bed, asking for a spoon. SKIN: Warm and dry. HEAD: Normocephalic. EYES: No injection or drainage. NECK: Supple, trachea midline. CARDIOVASCULAR: Regular rate and rhythm without murmurs. RESPIRATORY: Breath sounds equal bilaterally. No accessory muscle use. GASTROINTESTINAL: Abdomen soft, +epigastrium tenderness, nondistended. EXTREMITIES: No cyanosis NEUROLOGICAL: expressive aphasia. able to move extremities. tracks with eyes. 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 --Superior mesenteric artery is widely patent. ++retrograde opacification of celiac artery through the hepatic collaterals. --Celiac hepatic angiogram showed occluded celiac stent. --last celiac revision was in 2013. (2) Coagulopathy ICD Codes: D68.9 - Coagulation defect, unspecified Plan: -- corrected with vitamin K. --suspect coagulopathy is due to a K deficiency. has had nausea and decreased p.o. intake. -- antiphospholipid antibody panel pending. Assessment 87y/o female admitted with abdominal pain. Hematology consulted for coagulopathy and clotted celiac artery. h/o anxiety, hypothyroidism, rheumatoid arthritis, fibromyalgia, chronic dysarthria, hyperlipidemia, diabetes, peripheral neuropathy, COPD, gastroparesis, hiatal hernia, depression, ischemic colitis. Plan 1. await antiphospholipid antibody panel 2. resume ASA and plavix when cleared by GI 3. monitor coags. Attending Statement The exam, history, and the medical decision-making described in the above note were completed with the assistance of the mid-level provider. I reviewed and agree with the findings presented. I attest that I had a [id number] encounter with the patient on the same day, and personally performed and documented my assessment and findings in the medical record. Pt seen and examined. Communicate well in writing. Tells of anxiety, motions tremulousness, requesting valium. Trial small dose. Still c/o upper abd pain. Svetlana Duong July 07, 2017 13:54 Carli Daly MD July 07, 2017 17:34
[2017-07-07] MEDS ORDERED: DIAZEPAM 2 MG TAB PO PRN (18:00)
[2017-07-07] MEDS: NYSTAT/DIPHENHY/LIDO MOUTHWASH (Adult) 120ML SWISH-SWAL SCH ×2 (18:00→21:56)
[2017-07-07] MEDS ORDERED: PILL SPLITTER OTHER PRN (19:00)
[2017-07-08] VITALS (11 sets, daily range): BP systolic 105–143; BP diastolic 54–77; PULSE 69–87; RESP 17–20; TEMP 97.9–101; O2SAT 93–97
[2017-07-08] MEDS: SODIUM CHLOR 0.45% 1000 ML INJ 1,000 ML IV SCH ×2 (03:16→09:15)
[2017-07-08] MEDS: HEPARIN SODIUM - SQ 10,000 UNITS/ML VIAL SQ SCH ×2 (04:00→17:03)
[2017-07-08 05:06] LABS: AUTOMATED NEUTROPHIL # 5.2 TH/MM3 (1.8-7.7); BASOPHIL # 0.1 TH/MM3 (0-0.2); BASOPHIL % 0.7 % (0.0-2.0); EOSINOPHIL # 0.2 TH/MM3 (0-0.4); EOSINOPHIL % 2.4 % (0.0-4.0); HEMATOCRIT 36.4 % (35.0-46.0); HEMOGLOBIN 12.1 GM/DL (11.6-15.3); LYMPH % 24.1 % (9.0-44.0); MEAN CELL VOLUME 84.2 FL (80.0-100.0); MEAN CORPUSCULAR HGB CONC 33.2 % (32.0-36.0); MEAN PLATELET VOLUME 8.3 FL (7.0-11.0); MONO % 11.6 % (0.0-8.0); NEUT % 61.2 % (16.0-70.0); PLATELET COUNT 250 TH/MM3 (150-450); RED BLOOD COUNT 4.32 MIL/MM3 (4.00-5.30); RED CELL DISTRIBUTION WIDTH 15.2 % (11.6-17.2); WHITE BLOOD COUNT 8.5 TH/MM3 (4.0-11.0)
[2017-07-08 05:40] LABS: CALCIUM 7.8 MG/DL (8.5-10.1); CREATININE 0.8 MG/DL (0.50-1.00)
--- NOTE | 2017-07-08 07:39 | HHI.PR ---
Subjective Remarks At the margin of the bed Family daughter at bedside Still with some epigastric pain . no n/v/d/c. Objective Vitals Vital Signs Date Time Temp Pulse Resp B/P (MAP) Pulse Ox O2 Delivery O2 Flow Rate FiO2 07/08/17 04:05 98.2 07/08/17 04:00 98.6 71 17 109/54 (72) 94 07/08/17 04:00 71 07/08/17 00:00 101.0 82 19 105/55 (72) 93 07/08/17 00:00 86 07/07/17 20:00 100.1 94 17 132/61 (84) 93 07/07/17 20:00 84 07/07/17 19:00 96 Room Air 07/07/17 16:00 99.0 95 16 165/91 (115) 96 07/07/17 15:25 83 07/07/17 12:00 99.9 82 16 121/59 (79) 95 07/07/17 11:54 100.8 87 13 120/60 (80) 96 Nasal Cannula 2 07/07/17 11:45 91 19 118/56 (76) 95 Nasal Cannula 2 07/07/17 11:30 88 17 132/63 (86) 95 Nasal Cannula 2 07/07/17 11:15 94 26 131/61 (84) 96 Nasal Cannula 2 07/07/17 11:00 97 30 144/68 (93) 95 Nasal Cannula 3 07/07/17 10:52 98.7 103 26 132/67 (88) 94 Nasal Cannula 5 07/07/17 08:00 Room Air 07/07/17 08:00 98.7 80 16 122/62 (82) 92 I/O 07/07/17 07/07/17 07/07/17 07/08/17 07/08/17 07/08/17 07:00 15:00 23:00 07:00 15:00 23:00 Intake Total 1240 ml 100 ml 540 ml 240 ml Output Total 400 ml 350 ml 1250 ml Balance 840 ml 100 ml 190 ml -1010 ml Intake Oral 240 ml 0 ml 540 ml 240 ml IV Total 1000 ml 0 ml Other 100 ml Output Urine Total 400 ml 350 ml 1250 ml # Voids 2 0 # Bowel Movements 0 0 Result Diagram: 5/18/18 0401 5/18/18 0401 Imaging Last Impressions Celiac/Hepatic Arteriogram 07/06/17 1346 Signed Impressions: Service Date/Time: Thursday, July 06, 2017 10:17 - CONCLUSION: 1. Occluded celiac stent. Extended attempt at recanalizing the occluded stent was unsuccessful. 2. Widely patent SMA with replaced right hepatic artery from the SMA. There is retrograde opacification of the celiac artery through hepatic collaterals. Note: Stent has been occluded since CTA examination of 12/08/2015. Patient was thought to have a stent revision since then had an outside institution. However, on further investigation patient's last celiac revision was apparently in 2013. 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 Jesus Cui MD Head CT 07/06/17 0000 Signed Impressions: Service Date/Time: Thursday, July 06, 2017 15:00 - CONCLUSION: Negative for an acute process. Umesh Schafer MD FACR Abdomen/Pelvis CT 07/05/17 0850 Signed Impressions: Service Date/Time: Wednesday, July 05, 2017 10:46 - CONCLUSION: No acute disease. Jacky Page MD ADDENDUM: The study is compared to a CT angiogram dated December 08, 2015 which described a suspected occlusion of the celiac stent. The appearance compared to the previous study is similar. There is a widely patent superior mesenteric artery, and excellent opacification of the celiac artery distal to the stent via collateral reconstitution via the gastroduodenal artery. Jacky Page MD Objective Remarks GENERAL: This is a well-nourished, well-developed patient, in no apparent distress. CARDIOVASCULAR: Regular rate and rhythm without murmurs, gallops, or rubs. RESPIRATORY: Clear to auscultation. Breath sounds equal bilaterally. No wheezes , rales, or rhonchi. GASTROINTESTINAL: Abdomen soft, Tender to palpation diffusely, nondistended. No hepato-splenomegaly, or palpable masses. No guarding. MUSCULOSKELETAL: Extremities without clubbing, cyanosis, or edema. No joint tenderness, effusion, or edema noted. No calf tenderness. Negative Homans sign bilaterally. NEUROLOGICAL: Awake and alert. Cranial nerves II through XII intact. Motor and sensory grossly within normal limits. Five out of 5 muscle strength in all muscle groups. Normal speech. A/P Problem List: (1) Abdominal pain ICD Code: R10.9 - Unspecified abdominal pain Status: Acute (2) Diabetes ICD Code: E11.9 - Type 2 diabetes mellitus without complications Status: Chronic (3) Hypothyroidism ICD Code: E03.9 - Hypothyroidism, unspecified Status: Chronic Assessment and Plan Abdominal pain/nausea Epigastric pain nausea due to questionable gastroparesis. occluded celiac stent. Admit the patient to the medical floor GI consulted -- s/p angiogram with revision of stent patient with occluded celiac stent PPI Supportive care with IV fluids EGD 07/07/17 Swallow evaluation Diabetes mellitus type [address] on SSI with insulin NovoLog monitor Accu-Cheks for blood sugar control Hold metformin Hypothyroidism Continue levothyroxine. Diabetic neuropathy. Continue gabapentin. Hypertension. We will start on clonidine as needed. Continue to monitor vital signs. Coagulopathy with INR of 1.9 on admission. Unclear etiology, patient is not on coumadin. Received Vitamin K Monitor PT/INR. Consult hem/onc , appreciate recommendations. Continue ASA and Plavix Dysphagia: Consult ST H/o CVA? patient with at baseline expressive aphasia. CT head 07/06 ordered and reviewed at baseline. Discussed Condition With pt., nurse Problem Qualifiers (1) Abdominal pain: Qualified Codes: R10.13 - Epigastric pain (2) Diabetes: Qualified Codes: E11.42 - Type 2 diabetes mellitus with diabetic polyneuropathy Agustina Castillo MD July 08, 2017 07:39
[2017-07-08] MEDS: INSULIN ASPART SUPPLEMENTAL SCALE SQ SCH ×4 (08:00→20:14)
[2017-07-08] MEDS: SODIUM CHLORIDE 0.9% FLUSH 10 ML FLUSH IV FLUSH SCH ×2 (09:00→20:15)
[2017-07-08] MEDS: PANTOPRAZOLE SODIUM 40 MG VIAL IV PUSH SCH (09:09)
[2017-07-08] MEDS: SUCRALFATE 1 GM/10 ML CUP PO SCH ×4 (09:09→20:15)
[2017-07-08] MEDS: GABAPENTIN 300 MG CAP PO SCH ×2 (09:10→20:15)
[2017-07-08] MEDS: NYSTAT/DIPHENHY/LIDO MOUTHWASH (Adult) 120ML SWISH-SWAL SCH ×4 (09:10→20:15)
[2017-07-08] MEDS: LEVOTHYROXINE SODIUM 50 MCG TAB PO SCH (09:10)
[2017-07-08] MEDS: ONDANSETRON ODT 4 MG TAB PO PRN (13:25)
--- NOTE | 2017-07-08 19:21 | HHI.GIFU ---
GI Follow-up Note Consult Follow-up Subjective: Patient laying in bed comfortably, no new complaints .Feeling better .Constipation.No nausea, vomiting , abdominal pain.Has chronic abdominal pain, multifactorial.History of celiac trunk stent -occluded chronically, IR could not reestablish patency, good collaterals .Discussed with IR-no need for revascularization due to good collaterals.Gastroparesis , esophageal dysmotility s/p dilatation Objective: PHYSICAL EXAMINATION: Vitals signs stable No fever Vital Signs Date Time Temp Pulse Resp B/P (MAP) Pulse Ox O2 Delivery O2 Flow Rate FiO2 07/09/17 04:00 98.4 76 16 106/53 (70) 93 07/09/17 00:00 98.1 83 18 114/58 (76) 98 07/09/17 00:00 Room Air HEENT: Pupils round and reactive to light; normocephalic; atraumatic; no jaundice. Throat is clear. NECK: Neck is supple, no JVD, no lymphadenopathy. CHEST: Chest is clear to auscultation and percussion. CARDIAC: Regular rate and rhythm with no murmur gallop or rubs. ABDOMEN: Soft, nondistended, nontender; no hepatosplenomegaly; bowel sounds are present in all four quadrants. EXTREMITIES: No clubbing, cyanosis, or edema. SKIN: Normal; no rash; no jaundice. 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: No focal deficits; alert and oriented times three, difficulty talking Available Data (labs, X- Rays, Procedues) : Laboratory Tests Test 07/08/17 04:01 White Blood Count 8.5 TH/MM3 Red Blood Count 4.32 MIL/MM3 Hemoglobin 12.1 GM/DL Hematocrit 36.4 % Mean Corpuscular Volume 84.2 FL Mean Corpuscular Hemoglobin 28.0 PG Mean Corpuscular Hemoglobin Concent 33.2 % Red Cell Distribution Width 15.2 % Platelet Count 250 TH/MM3 Mean Platelet Volume 8.3 FL Neutrophils (%) (Auto) 61.2 % Lymphocytes (%) (Auto) 24.1 % Monocytes (%) (Auto) 11.6 % Eosinophils (%) (Auto) 2.4 % Basophils (%) (Auto) 0.7 % Neutrophils # (Auto) 5.2 TH/MM3 Lymphocytes # (Auto) 2.0 TH/MM3 Monocytes # (Auto) 1.0 TH/MM3 Eosinophils # (Auto) 0.2 TH/MM3 Basophils # (Auto) 0.1 TH/MM3 CBC Comment DIFF FINAL Differential Comment Blood Urea Nitrogen 6 MG/DL Creatinine 0.80 MG/DL Random Glucose 98 MG/DL Calcium Level 7.8 MG/DL Sodium Level 137 MEQ/L Potassium Level 3.7 MEQ/L Chloride Level 102 MEQ/L Carbon Dioxide Level 25.0 MEQ/L Anion Gap 10 MEQ/L Estimat Glomerular Filtration Rate 68 ML/MIN ASSESSMENT/PLAN: abdominal pain-better, has chronic abdominal pain-no weight loss or other alarm symptoms I have known her for many years, has repeated episodes of abdominal pain , that required evaluation in ed or hopital, had extensive work-up in the past history of mesenteric ischemia s/p celiac trunk stent placement, recent angiogram-chronic occlusion, good collaterals, this not an explanation for abdominal pain gastroparesis-gastroparesis diet -regaln prn dysphagia due to esophageal dysmotility- s/p egd /dilatation elevated inr-possible secondary vit k deficiency constipation Anxiety IBS Recommendations milk of magnesia prn if stable can be dc home in am continue ppi if no improvement consider colonoscopy, vascular surgery eval probiotics, digestive enzymes, IBgard It was a pleasure seeing Marybeth Padilla. Thank you for this consult. Entered by: Sonia Meng MD July 08, 2017 19:21
[2017-07-09] VITALS: BP 114/58; PULSE 83; RESP 18; TEMP 98.1; O2SAT 98
[2017-07-09 03:43] VITALS: PULSE 68
[2017-07-09 04:00] VITALS: BP 106/53; PULSE 76; RESP 16; TEMP 98.4; O2SAT 93
[2017-07-09] MEDS: HEPARIN SODIUM - SQ 10,000 UNITS/ML VIAL SQ SCH ×2 (05:21→16:00)
[2017-07-09 08:00] VITALS: BP 114/55; PULSE 70; PULSE 79; RESP 20; TEMP 98.3; O2SAT 94
[2017-07-09] MEDS: INSULIN ASPART SUPPLEMENTAL SCALE SQ SCH ×3 (08:00→16:22)
[2017-07-09] MEDS: SUCRALFATE 1 GM/10 ML CUP PO SCH ×3 (08:01→15:59)
[2017-07-09] MEDS: GABAPENTIN 300 MG CAP PO SCH (08:02)
[2017-07-09] MEDS: NYSTAT/DIPHENHY/LIDO MOUTHWASH (Adult) 120ML SWISH-SWAL SCH ×3 (08:02→16:00)
[2017-07-09] MEDS: PANTOPRAZOLE SODIUM 40 MG VIAL IV PUSH SCH (08:02)
[2017-07-09] MEDS: LEVOTHYROXINE SODIUM 50 MCG TAB PO SCH (08:02)
[2017-07-09] MEDS: SODIUM CHLORIDE 0.9% FLUSH 10 ML FLUSH IV FLUSH SCH (08:07)
--- NOTE | 2017-07-09 08:35 | HHI.PR ---
Subjective Remarks Says she feels much better today says she will like to go home. Says she has a walker at home. No nausea vomiting or diarrhea constipation. Able to eat. Pain in her belly is better controlled. Objective Vitals Vital Signs Date Time Temp Pulse Resp B/P (MAP) Pulse Ox O2 Delivery O2 Flow Rate FiO2 07/09/17 04:00 98.4 76 16 106/53 (70) 93 07/09/17 03:43 68 07/09/17 00:00 98.1 83 18 114/58 (76) 98 07/09/17 00:00 Room Air 07/08/17 20:00 98.9 83 18 126/60 (82) 94 07/08/17 20:00 Room Air 07/08/17 19:45 87 07/08/17 18:02 Room Air 07/08/17 17:00 81 07/08/17 16:34 97.9 80 20 132/77 (95) 97 07/08/17 12:38 98.5 79 18 143/74 (97) 96 07/08/17 12:00 77 07/08/17 10:58 74 I/O 07/08/17 07/08/17 07/08/17 07/09/17 07/09/17 07/09/17 07:00 15:00 23:00 07:00 15:00 23:00 Intake Total 240 ml 480 ml 1240 ml Output Total 1250 ml 400 ml 950 ml Balance -1010 ml 80 ml 290 ml Intake Oral 240 ml 480 ml 240 ml IV Total 1000 ml Output Urine Total 1250 ml 400 ml 950 ml # Bowel Movements 0 Result Diagram: 07/08/17 0401 07/08/17 0401 Imaging Last Impressions Celiac/Hepatic Arteriogram 07/06/17 1346 Signed Impressions: Service Date/Time: Thursday, July 06, 2017 10:17 - CONCLUSION: 1. Occluded celiac stent. Extended attempt at recanalizing the occluded stent was unsuccessful. 2. Widely patent SMA with replaced right hepatic artery from the SMA. There is retrograde opacification of the celiac artery through hepatic collaterals. Note: Stent has been occluded since CTA examination of 12/08/2015. Patient was thought to have a stent revision since then had an outside institution. However, on further investigation patient's last celiac revision was apparently in 2013. 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 Jesus Cui MD Head CT 07/06/17 0000 Signed Impressions: Service Date/Time: Thursday, July 06, 2017 15:00 - CONCLUSION: Negative for an acute process. Umesh Schafer MD FACR Abdomen/Pelvis CT 07/05/17 0850 Signed Impressions: Service Date/Time: Wednesday, July 05, 2017 10:46 - CONCLUSION: No acute disease. Jacky Page MD ADDENDUM: The study is compared to a CT angiogram dated December 08, 2015 which described a suspected occlusion of the celiac stent. The appearance compared to the previous study is similar. There is a widely patent superior mesenteric artery, and excellent opacification of the celiac artery distal to the stent via collateral reconstitution via the gastroduodenal artery. Jacky Page MD Objective Remarks GENERAL: This is a well-nourished, well-developed patient, in no apparent distress. CARDIOVASCULAR: Regular rate and rhythm without murmurs, gallops, or rubs. RESPIRATORY: Clear to auscultation. Breath sounds equal bilaterally. No wheezes , rales, or rhonchi. GASTROINTESTINAL: Abdomen soft, Tender to palpation diffusely, nondistended. No hepato-splenomegaly, or palpable masses. No guarding. MUSCULOSKELETAL: Extremities without clubbing, cyanosis, or edema. No joint tenderness, effusion, or edema noted. No calf tenderness. Negative Homans sign bilaterally. NEUROLOGICAL: Awake and alert. Cranial nerves II through XII intact. Motor and sensory grossly within normal limits. Five out of 5 muscle strength in all muscle groups. Normal speech. A/P Problem List: (1) Abdominal pain ICD Code: R10.9 - Unspecified abdominal pain Status: Acute (2) Diabetes ICD Code: E11.9 - Type 2 diabetes mellitus without complications Status: Chronic (3) Hypothyroidism ICD Code: E03.9 - Hypothyroidism, unspecified Status: Chronic Assessment and Plan Abdominal pain/nausea Epigastric pain nausea due to questionable gastroparesis. Occluded celiac stent. Admit the patient to the medical floor GI consulted -- s/p angiogram with revision of stent patient with occluded celiac stent PPI Supportive care with IV fluids EGD 07/07/17 Swallow evaluation advance diet per ST recs Consulter GI s/p EGD with dilation Dysphagia: Consult ST, advance diet per ST recs Gastritis/ esophagitis distal esophagus/spasm Hiatal hernia Continue PPI Carafte liquid Return 1 year EGD with dilatation per GI Diabetes mellitus type [address] on SSI with insulin NovoLog monitor Accu-Cheks for blood sugar control Hold metformin Hypothyroidism Continue levothyroxine. Diabetic neuropathy. Continue gabapentin. Hypertension. We will start on clonidine as needed. Continue to monitor vital signs. Coagulopathy with INR of 1.9 on admission. Unclear etiology, patient is not on coumadin. Received Vitamin K Monitor PT/INR. Consult hem/onc , appreciate recommendations. Continue ASA and Plavix H/o CVA? patient with at baseline expressive aphasia. CT head 07/06 ordered and reviewed at baseline. Discussed Condition With pt., nurse Discharge plan. Patient improved significantly. Her by GI for discharge. Plan to discharge home with home health. To follow-up with PCP and consultants as outpatient. Problem Qualifiers (1) Abdominal pain: Qualified Codes: R10.13 - Epigastric pain (2) Diabetes: Qualified Codes: E11.42 - Type 2 diabetes mellitus with diabetic polyneuropathy Agustina Castillo MD July 09, 2017 08:35
[2017-07-09] MEDS ORDERED: MAGNESIUM HYDROXIDE SUSP 30 ML CUP PO SCH (09:00)
[2017-07-09 12:00] VITALS: BP 137/62; PULSE 70; RESP 20; TEMP 98.6; O2SAT 92
[2017-07-09] MEDS: SODIUM CHLOR 0.45% 1000 ML INJ 1,000 ML IV SCH (12:17)
[2017-07-09] MEDS ORDERED: OXYC-392 PO (13:00)
[2017-07-09] MEDS ORDERED: DIAZ5TAB PO (13:00)
[2017-07-09] MEDS ORDERED: NYST1000 SWISH-SWAL (13:01)
[2017-07-09] MEDS ORDERED: SUCR1S PO (13:01)
--- NOTE | 2017-07-09 13:02 | HHI.DS ---
Discharge Summary Admission Date July 05, 2017 at 13:58 Discharge Date: July 09, 2017 Admitting Diagnosis abdominal pain (1) Abdominal pain ICD Code: R10.9 - Unspecified abdominal pain Status: Acute (2) Diabetes ICD Code: E11.9 - Type 2 diabetes mellitus without complications Status: Chronic (3) Hypothyroidism ICD Code: E03.9 - Hypothyroidism, unspecified Status: Chronic Procedures egd Brief History - From Admission Is an 87-year-old female with extensive past medical history as detailed below presents to [facility] complaining of epigastric pain and nausea which started last night. The patient has been experiencing these symptoms intermittently. Patient has had a celiac trunk stent. As per records the patient was supposed to have the stent checked as an outpatient basis but she did not follow-up with this. There are no reports of vomiting, fevers, chills. Please note that the patient is non verbal and history is obtained from family at bedside. Patient denies radiation and was able to rely pain was constant. No aggravating or alleviating factors could be obtained. CBC/BMP: 07/08/17 0401 07/08/17 0401 Significant Findings Laboratory Tests Test 07/07/17 05:30 07/08/17 04:01 Monocytes (%) (Auto) 11.6 % (0.0-8.0) Monocytes # (Auto) 1.0 TH/MM3 (0-0.9) Blood Urea Nitrogen 6 MG/DL (7-18) Calcium Level 7.8 MG/DL (8.5-10.1) Estimat Glomerular Filtration Rate 68 ML/MIN (>89) Imaging Last Impressions Celiac/Hepatic Arteriogram 07/06/17 7036 Signed Impressions: Service Date/Time: Thursday, July 06, 2017 10:17 - CONCLUSION: 1. Occluded celiac stent. Extended attempt at recanalizing the occluded stent was unsuccessful. 2. Widely patent SMA with replaced right hepatic artery from the SMA. There is retrograde opacification of the celiac artery through hepatic collaterals. Note: Stent has been occluded since CTA examination of 12/08/2015. Patient was thought to have a stent revision since then had an outside institution. However, on further investigation patient's last celiac revision was apparently in 2013. 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 Jesus Cui MD Head CT 07/06/17 0000 Signed Impressions: Service Date/Time: Thursday, July 06, 2017 15:00 - CONCLUSION: Negative for an acute process. Umesh Schafer MD FACR Abdomen/Pelvis CT 07/05/17 0850 Signed Impressions: Service Date/Time: Wednesday, July 05, 2017 10:46 - CONCLUSION: No acute disease. Jacky Page MD ADDENDUM: The study is compared to a CT angiogram dated December 08, 2015 which described a suspected occlusion of the celiac stent. The appearance compared to the previous study is similar. There is a widely patent superior mesenteric artery, and excellent opacification of the celiac artery distal to the stent via collateral reconstitution via the gastroduodenal artery. Jacky Page MD PE at Discharge GENERAL: This is a well-nourished, well-developed patient, in no apparent distress. CARDIOVASCULAR: Regular rate and rhythm without murmurs, gallops, or rubs. RESPIRATORY: Clear to auscultation. Breath sounds equal bilaterally. No wheezes , rales, or rhonchi. GASTROINTESTINAL: Abdomen soft, Tender to palpation diffusely, nondistended. No hepato-splenomegaly, or palpable masses. No guarding. MUSCULOSKELETAL: Extremities without clubbing, cyanosis, or edema. No joint tenderness, effusion, or edema noted. No calf tenderness. Negative Homans sign bilaterally. NEUROLOGICAL: Awake and alert. Cranial nerves II through XII intact. Motor and sensory grossly within normal limits. Five out of 5 muscle strength in all muscle groups. Normal speech. Hospital Course Abdominal pain/nausea Epigastric pain nausea due to questionable gastroparesis. Occluded celiac stent. Admit the patient to the medical floor GI consulted -- s/p angiogram with revision of stent patient with occluded celiac stent PPI Supportive care with IV fluids EGD 07/07/17 Swallow evaluation advance diet per ST recs Consulter GI s/p EGD with dilation Dysphagia: Consult ST, advance diet per ST recs Gastritis/ esophagitis distal esophagus/spasm Hiatal hernia Continue PPI Carafte liquid Return 1 year EGD with dilatation per GI Diabetes mellitus type [address] on SSI with insulin NovoLog monitor Accu-Cheks for blood sugar control Hold metformin Hypothyroidism Continue levothyroxine. Diabetic neuropathy. Continue gabapentin. Hypertension. We will start on clonidine as needed. Continue to monitor vital signs. Coagulopathy with INR of 1.9 on admission. Unclear etiology, patient is not on coumadin. Received Vitamin K Monitor PT/INR. Consult hem/onc , appreciate recommendations. Continue ASA and Plavix H/o CVA? patient with at baseline expressive aphasia. CT head 07/06 ordered and reviewed at baseline. Discussed Condition With pt., nurse Discharge plan. Patient improved significantly. Her by GI for discharge. Plan to discharge home with home health. To follow-up with PCP and consultants as outpatient. Pt Condition on Discharge: Stable Discharge Disposition: Disch w/ Home Health Serv Discharge Time: > 30 minutes Discharge Instructions DIET: Follow Instructions for: Heart Healthy Diet, Diabetic Diet Speech Therapy-Diet Recommends: Pureed Activities you can perform: Regular-No Restrictions Follow up Referrals: Gastroenterology - 2 Weeks PCP Follow-up - 2-3 Days New Medications: Nystatin Liq (Nystatin Liq) 100,000 unit/ml Susp 5 ML SWISH-SWAL QID for Infection for 7 Days, ML 0 Refills Oxycodone (Oxycodone) 5 Mg Tab 5 MG PO Q4H PRN for pain, #12 TAB Sucralfate Liq (Sucralfate Liq) 1 Gram/10 Ml Carlota 1 GM PO ACHS for gastritis esophagitis for 30 Days, TAB Continued Medications: Aspirin DR (Aspir-81) 81 Mg Tabdr Clopidogrel (Plavix) 75 Mg Tab 75 MG PO DAILY for Blood Clot Prevention, #30 TAB 0 Refills Diazepam (Diazepam) 5 Mg Tab 5 MG PO BID PRN for SPASM, #6 TAB 0 Refills (This prescription has been renewed) Docusate Sodium (Colace) 100 Mg Capsule 100 MG PO DAILY for Prevent Constipation, #60 CAP 0 Refills Gabapentin (Gabapentin) 600 Mg Tab 600 MG PO BID, #60 TAB 0 Refills Levothyroxine (Levoxyl) 75 Mcg Tab 50 MCG PO DAILY for Thyroid, #30 TAB 0 Refills Metformin (Metformin) 500 Mg Tab 500 MG PO DIRECTED for Blood Sugar Management, #60 TAB 0 Refills With meals Nitrofurantoin Monohydrate Macrocrystals (Macrobid) 100 Mg Cap 100 MG PO BID for Infection for 7 Days, #14 CAP 0 Refills Omeprazole (Omeprazole) 40 Mg Cap 40 MG PO DAILY, #30 CAP 0 Refills Agustina Castillo MD July 09, 2017 13:01
[2017-07-10 13:53] LABS: BETA2 GLYCOPROTEIN I AB IGA LESS THAN 9.0 SAU (< OR = 20); BETA2 GLYCOPROTEIN I AB IGG LESS THAN 9.0 SGU (< OR = 20); BETA2 GLYCOPROTEIN I AB IGM LESS THAN 9.0 SMU (< OR = 20)
[2017-07-10 15:54] LABS: PHOS SERINE AB IGA LESS THAN 20 U/mL (<20)
[2017-07-11 07:53] LABS: CARDIOLIPIN AB IGA LESS THAN 11.0 APL (0-11)
== END 2017-07-09 16:35 | disposition home health service (06) | DRG 392 ==
LOC: NEPE 08:13 → NEDA 13:58 → N04A 19:42
PROVIDERS: ADMIT Hospitalist; ATTEND Hospitalist
PROC: B4101ZZ Fluoroscopy of Abdominal Aorta using Low Osmolar Contrast (ICD-10-PCS; principal; 2017-07-06)
PROC: B4121ZZ Fluoroscopy of Hepatic Artery using Low Osmolar Contrast (ICD-10-PCS; 2017-07-06)
PROC: 0DB38ZX Excision of Lower Esophagus, Via Natural or Artificial Opening Endoscopic, Diagnostic (ICD-10-PCS; 2017-07-07)
PROC: 0DB68ZX Excision of Stomach, Via Natural or Artificial Opening Endoscopic, Diagnostic (ICD-10-PCS; 2017-07-07)
PROC: 0D748ZZ Dilation of Esophagogastric Junction, Via Natural or Artificial Opening Endoscopic (ICD-10-PCS; 2017-07-07)
DX: K31.84 Gastroparesis (principal); D68.9 Coagulation defect, unspecified; T82.898A Other specified complication of vascular prosthetic devices, implants and grafts, initial encounter; E11.42 Type 2 diabetes mellitus with diabetic polyneuropathy; Z79.84 Long term (current) use of oral hypoglycemic drugs; R13.10 Dysphagia, unspecified; K22.4 Dyskinesia of esophagus; K20.9 Esophagitis, unspecified; E03.9 Hypothyroidism, unspecified; K29.70 Gastritis, unspecified, without bleeding; K44.9 Diaphragmatic hernia without obstruction or gangrene; I10 Essential (primary) hypertension; M06.9 Rheumatoid arthritis, unspecified; M79.7 Fibromyalgia; E56.1 Deficiency of vitamin K; R47.1 Dysarthria and anarthria; R51 Headache; F41.9 Anxiety disorder, unspecified; K58.9 Irritable bowel syndrome, unspecified; Z79.02 Long term (current) use of antithrombotics/antiplatelets; Z79.82 Long term (current) use of aspirin; Z87.891 Personal history of nicotine dependence
CPT/HCPCS: 36245; 70450; 74177; 75726; 75774; 76937; 80048; 80053; 81001; 82550; 82948; 83605; 83690; 84484; 85025; 85610; 85730; 86146; 86147; 86148; 88305; 88312; 93005; 94664; 96361; 96374; 96375; 99152; 99153; C1769; C1887; C1894; C9113; J0330; J1644; J2060; J2250; J2270; J2765; J3010; J3430; J7040; J7613; Q9967